=== PATIENT | male | born 1975 | race Caucasian/White ===

== ENCOUNTER 2025-05-19 20:31 | Inpatient (IN) | payer BC, SELFPAY ==
--- NOTE | ~2025-05-19 | CT_ITS ---
CT of the Abdomen and Pelvis: Indication: Abdominal distention Technique: 2.5 mm axial scans were obtained through the abdomen and pelvis following intravenous adm inistration of 100 cc of Omnipaque 350. Dose reduction technique was used on this scan by utilizing a utomated exposure control and iterative reconstruction technique. The dose-length product (DLP) was 1 232.73 mGy-cm. Findings: Scans through the lung bases demonstrate small right pleural effusion and minimal left ple ural effusion. Liver is diffusely nodular in contour, compatible cirrhosis. There is a 2.1 cm hypodense lesion in th e left hepatic lobe. Gallbladder is markedly distended with a few small calcified gallstones present. There is a large amount of more amorphous mildly hyperdense material within the gallbladder lumen, w hich could reflect sludge, hemorrhage, or possibly soft tissue. Spleen is enlarged, measuring 14.8 cm in length. There are extensive varices in the right mid abdomen and about the right kidney. The panc reas, adrenals and kidneys are within normal limits. No evidence of aortic aneurysm. No lymphadenop athy. Extensive large bowel wall thickening is present, possibly related to the presence of ascites. Small to moderate umbilical hernia contains fat and fluid. No bowel obstruction evident. Images through the pelvis were performed. Urinary bladder unremarkable. No pelvic mass seen. Moderate to large abdominopelvic ascites present. Impression: Cirrhotic liver with evidence of portal hypertension including splenomegaly, extensive varices in the right abdomen, and moderate to large amount of abdominopelvic ascites. Small to moderate umbilical hernia containing fat and fluid. 2.1 cm hypodense lesion left hepatic lobe is indeterminate based on this exam. Follow-up MR recommend ed to further assess. Markedly distended gallbladder with small calcified gallstones and larger amount of more amorphous hy perdense material which could reflect gallbladder sludge versus possibly hemorrhage or soft tissue de nsity. This could also be further assessed at. Postcontrast MR. Small right pleural effusion and minimal left pleural effusion. Reviewed, dictated and finalized at location M. Impression: Cirrhotic liver with evidence of portal hypertension including splenomegaly, ex tensive varices in the right abdomen, and moderate to large amount of abdominop elvic ascites. Small to moderate umbilical hernia containing fat and fluid. 2.1 cm hypodense lesion left hepatic lobe is indeterminate based on this exam. Follow-up MR recommended to further assess. Markedly distended gallbladder with small calcified gallstones and larger amoun t of more amorphous hyperdense material which could reflect gallbladder sludge versus possibly hemorrhage or soft tissue density. This could also be further a ssessed at. Postcontrast MR. Small right pleural effusion and minimal left pleural effusion.
--- NOTE | ~2025-05-19 | XR_ITS ---
EXAMINATION: XR chest ET placement Exam Date/Time: 05/20/2025 16:06 CDT HISTORY: ET placement Comparison: CT abdomen pelvis 05/19/2025. RESULT: Lines, tubes, and devices: Endotracheal tube terminating 4.3 cm above the madisyn. Lungs and pleura: Lordotic positioning, with low volumes. Segmental right upper lung and medial left lower lung airspace disease. Small bilateral pleural effusions noted in the prior CT are not radiogr aphically visible. Cardiomediastinal silhouette: Stable. Calcified nodes. Other: No acute osseous or upper abdominal finding. IMPRESSION: Endotracheal tube, 4.3 cm above the madisyn. Segmental right upper lung and left medial lower lung ate lectasis/consolidation. Reviewed, dictated and finalized at location K. IMPRESSION: Endotracheal tube, 4.3 cm above the madiysn. Segmental right upper lung and left medial lower lung atelectasis/consolidation.
[2025-05-19 20:32] VITALS: BP 102/58; PULSE 78; RESP 14; TEMP 37; O2SAT 99
[2025-05-19] MEDS: PANTOPRAZOLE SODIUM IV 40 MG VIAL 80 MG IV PUSH (20:49)
--- OUTSIDE RECORDS SUMMARY | 2025-05-19 20:57 | XMS_ITS | Encounter Summary ---
Author Organization [facility] Address [address] [place] [address] Care Team Providers Care Real Estate Agent Name Role Phone Jane Ruiz MD Primary Care Provider Encounter Details Date Type Department Care Team (Late st Contact Info) Description 05/15/2025 Office Visit External [facility] - Family Medicine [address] [place] [address], [address] [place] [phone] Valarie Garrett RMA Social History Tobacco Use Types Packs/Day Years Used Date Smoking Tobacco: Former Cigarettes Q uit: 2024 Smokeless Tobacco: Former Alcohol Use Standard Drinks/Week Comments Not Currently 0 (1 standard drink = 0.6 oz pur e alcohol) since October 2024 AUDIT-C Answer Date Recorded Q1: How often do you have a drink containing alcohol? Never 04/21/2025 Q2: How many drinks containi ng alcohol do you have on a typical day when you are drinking? Patient does not drink Q3: How often do you have si x or more drinks on one occasion? Never 04/21/2025 Overall Financial Resource Strain (CARDIA) Answe r Date Recorded How hard is it for you to pa y for the very basics like food, housing, medical care, and heating? Not hard at all 04/30/2025 PHQ-2 Answer Date Recorded Patient Health Questionnaire-2 Score 0 03/18/2025 [facility] [place] [facility] Occupat ional Health - Occupational Stress Questionnaire Answer Date Recorded Do you feel stress - tense, restless, nervous, or anxious, or unable to sleep at night because your mind is troubled all the time - these days? Not at all 04/30/2025 Hunger Vital Sign Answer Date Recorded Within the past 12 months, y ou worried that your food would run out before you got the money to buy more. Never true 04/30/20 25 Within the past 12 months, t he food you bought just didn't last and you didn't have money to get more. Never true 04/30/2025 PRAPARE - Transportation Answer Date Re corded In the past 12 months, has l ack of transportation kept you from medical appointments or from getting medications? No 04/08 In the past 12 months, has l ack of transportation kept you from meetings, work, or from getting things needed for daily living? No 04/30/2025 Housing Stability Vital Sign Answer Alireza e Recorded In the last 12 months, was t here a time when you were not able to pay the mortgage or rent on time? No 04/30/2025 In the past 12 months, how m any times have you moved where you were living? 1 04/30/2025 At any time in the past 12 m [facility], were you homeless or living in a care home (including now)? 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 Answer Date of Assessment Author No 04/22/2025 12:56 PM Gail Hooper RN * Is person blind or have serious difficulty seeing? Answer Date of Assessment Author No 04/22/2025 12:56 PM Gail Hooper RN * Does person have serious difficulty walking/climbing stairs? Answer Date of Assessment Author No 04/22/2025 12:56 PM Gail Hooper RN * Does person have difficulty dressing/bathing? Answer Date of Assessment Author No 04/22/2025 12:56 PM Gail Hooper RN * Does person have difficulty doing errands alone? Answer Date of Assessment Author No 04/22/2025 12:56 PM Gail Hooper RN documented as of this encounter Mental Status * Does person have difficulty concentrating/remembering/making decisions? Answer Entry Date Author Yes 04/22/2025 12:56 PM CDT Gail Melendez RN documented in this encounter Plan of Treatment Upcoming Encounters Date Type Department Care Team (Late st Contact Info) Description 05/21/2025 10:30 AM CDT Office Visit [facility] - Nephrology [address] [place] [phone] Sarah Headley MD [address] [place] [address] Margaret Inman MD [address] [place] [address] 06/11/2025 2:30 PM CDT Office Visit [facility] - GI [address] [place] [phone] Deepali Joiner, [employer] CURER [address] [place] [address] [facility] [place] [address] 06/18/2025 3:00 PM CDT Office Visit [facility] - Family Medicine [address] [place] [phone] Jane Ruiz MD [address] [place] [address] documented as of this encounter Goals Goal Patient Goal Type Associated Problems Recent Progress Patient-Stated? Author Medication Management General On track( 025 9:28 AM CDT) Octavia Badillo RN Note: Expected end date: ongoing Interventions: Take all medications as prescribed Let your doctor know right away about any changes in your medications Make sure to request a refill of your medication at least one week prior to your last dose documented as of this encounter Visit Diagnoses Not on filedocumented in this encounter Care Teams Real Estate Agent Relationship Specialty Start Date End Date Jane Ruiz MD [address] [place] [address] PCP - General Internal Medicine 03/20/25 documented as of this encounter
--- OUTSIDE RECORDS SUMMARY | 2025-05-19 20:57 | XMS_ITS | Clinical Summary ---
Author Organization [facility] Address [address] [place] [address] Care Team Providers Care Artificial Breeding Technician Name Role Phone Unavailable Primary Care Provider Unavailabl e Allergies No known active allergies Medications thiamine 100 MG tablet Take 1 tablet (100 mg total) by mouth in the morning. 5 Active spironolactone (ALDACTONE) 25 MG tablet Take 1 tablet (25 mg total) by mouth in the morning. 30 tablet 5 Active sodium chloride (OCEAN) 0.65 % nasal spray Administer 2 sprays into each nostril every 2 (two) hours as needed for congestion. 5 Active multivitamin w/ minerals (THERA M PLUS) Tab/Cap tablet Take 1 each (1 tablet total) by mouth in the morning. 5 Active lactulose 10 GM/15ML solution Take 30 mL (20 g total) by mouth 3 (three) times a day. 946 mL 5 Active acetaminophen (TYLENOL) 500 MG tablet Take 1 tablet (500 mg total) by mouth every 6 (six) hours as needed for mild pain or moderate pain for up to 335 days. 5 026 Active folic acid (FOLVITE) 1 MG tablet Take 1 tablet (1 mg total) by mouth in the morning. 5 Active furosemide (LASIX) 40 MG tablet Take 1 tablet (40 mg total) by mouth in the morning. 30 tablet 5 Active insulin glargine (LANTUS) 100 UNIT/ML solution pen-injector pen-injector Inject 0.16 mL (16 Units total) under the skin every morning. 15 mL 5 Active insulin aspart (NovoLOG) 100 UNIT/ML solution pen-injector Inject 0.08 mL (8 Units total) under the skin in the morning and 0.08 mL (8 Units total) at noon and 0.08 mL (8 Units total) in the evening. Inject with meals. 3 mL 5 Active glucometer 1 each as directed (Test before all meals/snacks and before bedtime.). 1 each 5 Active glucose blood test strip as directed (Test before all meals/snacks and before bedtime.). 100 each 5 Active lancets as directed (Test before all meals/snacks and before bedtime.). 100 each 5 Active alcohol swabs 70 % as directed (Test before all meals/snacks and before bedtime.). 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 180 tablet 5 Active Active Problems Problem Noted Date Diagnosed Date Alcoholic cirrhosis of liver with ascites 2024 Debility 01/14/2025 Anemia of chronic disease 12/28/2024 Type 2 diabetes mellitus without complication Hepatic encephalopathy 12/28/2024 Resolved Problems Problem Noted Date Diagnosed Date Resolved Date Liver disease 01/15/2025 01/15/2025 Social History Tobacco Use Types Packs/Day Years Used Date Smoking Tobacco: Never Smokeless Tobacco: Former Quit: 11/07/2024 Tobacco Cessation:Counseling Given: No Alcohol Use Standard Drinks/Week Comments Yes 32 (1 standard drink = 0.6 oz pu re alcohol) [facility] Utilities Answer Date Recorded In the past 12 months has [employer], [employer], oil, or water [employer] threatened to shut off services in your home? Patient declined 01/15/2025 Social Connection and Isolation Panel [NHANES] A nswer Date Recorded In a typical week, how many times do you talk on the phone with family, friends, or neighbors? Patient declined 01/15/2025 How often do you get togethe r with friends or relatives? Patient declined 01/15/2025 How often do you attend orthodoxy or spiritism serv ices? Patient declined 01/15/2025 Do you belong to any clubs o r organizations such as orthodoxy groups, unions, fraternal or athletic groups, or school groups? Patient declined 01/15/2025 How often do you attend meet ings of the clubs or organizations you belong to? Patient declined 01/15/2025 Are you , , di vorced, , never , or living with a partner? Never 01/15/2025 Overall Financial Resource Strain (CARDIA) Answe r Date Recorded How hard is it for you to pa y for the very basics like food, housing, medical care, and heating? Patient declined 01/15/2025 [facility] Occupat ional Health - Occupational Stress Questionnaire Answer Date Recorded Do you feel stress - tense, restless, nervous, or anxious, or unable to sleep at night because your mind is troubled all the time - these days? Only a little 01/28/2025 Hunger Vital Sign Answer Date Recorded Within the past 12 months, y ou worried that your food would run out before you got the money to buy more. Patient declined Within the past 12 months, t he food you bought just didn't last and you didn't have money to get more. Patient declined 09/2025 Housing Stability Vital Sign Answer Alireza e Recorded In the last 12 months, was t here a time when you were not able to pay the mortgage or rent on time? Patient declined 01/16/20 25 In the past 12 months, how m any times have you moved where you were living? 0 01/15/2025 At any time in the past 12 m [facility], were you homeless or living in a [facility] (including now)? Patient declined 01/15/2025 Domestic Abuse Assessment Answer Date R ecorded Do you feel safe in your relationships at home? Yes 01/14/2025 Physical Abuse Denies 01/14/2025 HRSN Domestic Abuse - Type of Abuse Not on file 01/14/2025 HRSN Domestic Abuse - Time Frame Not on file 01/14/2025 HRSN Domestic Abuse - Signs and Symptoms Not on file 01/14/2025 Verbal Abuse Denies 01/14/2025 HRSN Domestic Abuse - Reported To Not on file 01/14/2025 SDOH Transportation Source Answer Da te Recorded Has lack of transportation k ept you from medical appointments or from getting medications? No 01/28/2025 Has lack of transportation k ept you from meetings, work, or from getting things needed for daily living? No 01/28/2025 HRSN Depression PHQ-2 Answer Date Recor ded Feeling down, depressed, or hopeless 0 01/28/2025 Little interest or pleasure in doing things 0 01/28/2025 Sex and Gender Information Value Date Recorded Sex Assigned at Not on file Legal Sex Male 4:21 PM EDT Gender Identity Not on file Sexual Orientation Not on file Last Filed Vital Signs Vital Sign Reading Time Taken Comments Blood Pressure 117/71 01/28/2025 7:17 AM CDT Pulse 87 01/28/2025 7:17 AM CDT Temperature 36.9 C (98.4 F) 01/28/2025 7:17 AM CDT Respiratory Rate 18 01/28/2025 7:17 AM CDT Oxygen Saturation 96% 01/28/2025 7:17 AM CDT Inhaled Oxygen Concentration - - Weight 90.7 kg (200 lb) 01/28/2025 11:58 AM CDT Height 175.3 cm (5' 9) 01/21/2025 3:38 PM CDT Body Mass Index 29.53 01/21/2025 3:38 PM CDT Plan of Treatment Not on file Advance Directives * Full Resuscitation (Latest Code Status on File) Date Activated Date Inactivated Comments 01/14/2025 7:16 PM 01/28/2025 6:19 PM Question Answer Comments I have discussed this order with the patient or his/her surrogate and have received informed consent. Yes
--- OUTSIDE RECORDS SUMMARY | 2025-05-19 20:58 | XMS_ITS | Clinical Summary ---
Author Organization [facility] Address [address] [facility] [place] [address] Care Team Providers Care Senior Analyst Market Intelligence Name Role Phone Jane Ruiz MD Primary Care Provider Source Comments [facility],non-owned Affiliates and Associated Physician Practices is amultiple site organization consisting of ambulatory clinics and hospital sitesin [place], [place], [place] and [place]. This disclosure is being madepursuant to the Care Everywhere program and may not contain all information available regarding this patient. Last updated 18.[facility] Allergies No known active allergies Medications * Be aware that medications may not be up to date on this document. Alwaysverify current medications with the patient. multiple vitamins with minerals tablet Take 1 (one) tablet by mouth once daily 025 Active Alcohol Swabs 70 % use as directed to test before all meals/snacks and before bedtime 100 Each 5 12:48 PM CDT 025 Active Blood Glucose Monitoring Suppl (blood glucose meter) use as directed to test blood glucose 1 Each 5 12:48 PM CDT 025 Active Glucose Blood (BLOOD GLUCOSE TEST STRIPS) STRP Test as directed before all meals/snacks and before bedtime 100 Each 5 12:48 PM CDT 025 Active lancets Test as directed before all meals/snacks and before bedtime. 100 Each 5 12:48 PM CDT 025 Active sulfamethoxaz ole-trimethop rim (Bactrim DS; Septra DS) 800-160 MG tablet Take 1 (one) tablet by mouth once daily for SBP prophylaxis 90 tablet 3 025 Active spironolacton e (Aldactone) 100 MG tablet Take 1 (one) tablet by mouth once daily 90 tablet 3 025 2025 Active Insulin Glargine Solostar 100 UNIT/ML SOPNIndicatio ns:Type 2 diabetes mellitus without complication, without long-term current use of insulin (HCC) Inject 16 Units subcutaneously every morning 15 mL 2 025 Active insulin aspart (NovoLOG) FlexPen Inject 8 (eight) Units subcutaneously 3 times daily with meals 15 mL 2 025 Active Insulin Pen Needle (Pen [place]) 33G X 4 MM MISCIndicatio ns:Type 2 diabetes mellitus without complication, without long-term current use of insulin ([facility]) Use 1 Each 4 times daily 300 Each 3 025 Active thiamine (Vitamin B-1) 100 MG tablet Take 1 (one) tablet by mouth once daily 30 tablet 025 Active furosemide (Lasix) 40 MG tablet Take 1 (one) tablet by mouth every morning 30 tablet 025 Active carvedilol (Coreg) 3.125 MG tablet Take 1 (one) tablet by mouth 2 times daily with morning and evening meal Active lactulose (Chronulac) 10 GM/15ML solution Take 30 mL by mouth 4 times daily 025 Active melatonin 3 MG tablet Take 1 (one) tablet by mouth at bedtime Active pantoprazole (Protonix) 40 MG injection 10 mL by Intravenous route 2 times daily 025 Active rifAXIMin (Xifaxan) 550 MG tablet Take 1 (one) tablet by mouth 2 times daily 025 Active rifAXIMin (Xifaxan) 550 MG tablet Take 1 (one) tablet by mouth 2 times daily 180 tablet 3 5 2:45 PM CDT 025 2024 Discontinued(L ist Clean-Up) rifAXIMin (Xifaxan) 550 MG tablet Take 1 (one) tablet by mouth 2 times daily 180 tablet 3 025 2024 Discontinued lactulose (Chronulac) 10 GM/15ML solution Take 30 mL by mouth 3 times daily 946 mL 5 025 2024 Discontinued Active Problems Problem Noted Date Diagnosed Date Hypernatremia 05/09/2025 Esophageal varices with bleeding 05/05/2025 Secondary esophageal varices with bleeding 05/05 Hemorrhagic shock 05/05/2025 Acute hypoxic respiratory failure 05/05/2025 Acute blood loss anemia 05/05/2025 Lactic acidosis 05/05/2025 Hepatocellular carcinoma 05/05/2025 Ascites due to alcoholic cirrhosis 05/05/2025 Metabolic acidosis 05/05/2025 Hypocalcemia 05/05/2025 Hyperglycemia 05/05/2025 Periapical abscess without sinus 05/05/2025 Acute encephalopathy 04/20/2025 Alcoholic cirrhosis of liver with ascites 2024 Debility 01/14/2025 Hyponatremia 12/28/2024 Sepsis with encephalopathy 12/28/2024 ELLA (acute kidney injury) 12/28/2024 Hepatic encephalopathy 12/28/2024 Hyperkalemia 12/28/2024 Type 2 diabetes mellitus wit hout complication, without long-term current use of insulin 12/28/2024 Anemia of chronic disease 12/28/2024 Thrombocytopenia 12/28/2024 Decompensated hepatic cirrhosis 12/27/2024 SBP (spontaneous bacterial peritonitis) 12/27/19 Encounters Date Type Department Care Team Description 05/17/2025 Telephone [facility] - GI [address] [facility], [place] [phone] Wagner Latif, RN Follow-up 05/15/2025 Office Visit External [facility] - Family Medicine [address] [place] [address], [address] [place] [address] Valarie Garrett RMA 05/15/2025 Results Follow-Up [facility] ACUTE [address] [place] [phone] Lauryn Brooks 05/05/2025 12:32 PM CDT - 05/05/2025 1:02 PM CDT Surgery [facility] ENDOSCOPY [address] [place] [address] Sherrie Gay DO ESOPHAGOGASTRODUODENOSCOPY (EGD) DIAGNOSTIC 04/30/2025 3:00 PM CDT - 04/30/2025 3:30 PM CDT Surgery [facility] ENDOSCOPY [address] [place] [address] Yasmeen Canales MD Flex Sig 04/30/2025 2:23 PM CDT Anesthesia Event [facility] ENDOS[facility] [address] [place] [address] Prerna Desai MD Buchheit, Rachel E, MANUFACTURING APPLICATIONS ENGINEER-CLAIMS TECHNICIAN 04/26/2025 Orders Only [facility] - Hematology/Onco [facility]y [address] [place] [address] Talib Pettit DO 04/25/2025 Orders Only [facility] - Hematology/Onco logy [address] [place] [address] Talib Pettit DO Malignant neoplasm of liver, unspecified liver malignancy type (HCC) 04/21/2025 11:12 PM CDT - 05/15/2025 6:45 PM CDT Hospital Encounter [facility] ACUTE [address] [place] [address] Alexi Mendez MD Syn, Wing-Kin, MD Befeler, Alex S, MD Ferguson, Keith T, MD Espiritu, Joseph R, MD Gastroenterology Discharge Disposition: Nursing Facility:Medicaid 04/21/2025 Travel 04/20/2025 Telephone [facility] - GI [address] [facility], [place] [address] Douglas Roberts MD Altered mental status 04/10/2025 Refill [facility] [address] [facility], [address] [place] [phone] Jane Cloud MD MEDICATION REFILL 03/28/2025 Refill [facility] [address] [facility], [address] [place] [address] Jane Cloud MD Refill Request 03/21/2025 8:25 AM CDT - 03/21/2025 8:40 AM CDT Surgery [facility] END[facility] [address] [place] [address] Lillie Amos PA-C PARACENTESIS ABDOMEN (PERCUTANEOUS)--mtm?--recheck labs 03/21/2025 8:20 AM CDT - 03/21/2025 12:04 PM CDT Hospital Encounter [facility] OP [address] [place] [address] Lillie Amos PA-C Surgery General Discharge Disposition: Home or Self Care 03/21/2025 Travel 03/20/2025 Refill [facility] [address] [facility], [address] [place] [address] Jane Cloud MD MEDICATION REFILL 03/18/2025 10:20 AM CDT Office Visit [facility] [address] [facility], [address] [phone] Jane Cloud MD Type 2 diabetes mellitus without complication, with long-term current use of insulin (HCC) (Primary Dx); Alcoholic cirrhosis of liver with ascites (HCC); Anemia of chronic disease; Thrombocytopenia; Type 2 diabetes mellitus without complication, without long-term current use of insulin (HCC) 03/18/2025 Travel 03/08/2025 10:39 AM CDT - 03/08/2025 11:59 PM CDT Hospital Encounter [facility] OP DRAW STATION [address] [place] [address] Discharge Disposition: Home or Self Care 03/08/2025 8:00 AM CDT Office Visit [facility] - GI [address] [facility], [place] [address] Will Mckenzie MD Decompensated hepatic cirrhosis (HCC) (Primary Dx); SBP (spontaneous bacterial peritonitis) (HCC) 03/08/2025 Results Follow-Up [facility] - GI [address] [facility], [place] [address] Will Mckenzie MD 03/08/2025 Travel 02/28/2025 Orders Only [facility] - Internal Med [address] [facility], [place] [address] Guido Headley MD 02/26/2025 Orders Only Transitional Care at [address] [address] Guido Headley MD 02/26/2025 Telephone Transitional Care at [address] [address] Loni Cook MA Question from Last 3 Months Family History Medical History Relation Name Comments Other - Cardiac Father Other - Cardiac Maternal Grandfather Diabetes - Type 2 Maternal Grandmother Diabetes - Type 2 Mother Other - Cardiac Paternal Grandfather Cancer Paternal Grandmother Cancer - Pancreatic Paternal Grandmother Cancer - Skin, Melanoma Paternal Grandmother Relation Name Status Comments Father Maternal Grandfather Maternal Grandmother Alive Mother Alive Paternal Grandfather Paternal Grandmother Social History Tobacco Use Types Packs/Day Years Used Date Smoking Tobacco: Former Cigarettes Q uit: 2024 Smokeless Tobacco: Former Tobacco Cessation:Counseling Given: No Alcohol Use Standard Drinks/Week Comments Not Currently [...] Recorded Patient Health Questionnaire-2 Score 0 03/18/2025 [facility] of Occupat ional Health - Occupational Stress [...] any time in the past 12 [facility], were you homeless or living in a [facility] (including now)? No 04/30/2025 Sex and Gender Information Value Date Recorded Sex Assigned at Not on file Legal Sex Male 3:36 AM SLIP MIXER Gender Identity Not on file Sexual Orientation Not on file Last Filed Vital Signs Vital Sign Reading Time Taken Comments Blood Pressure 97/66 05/15/2025 2:41 PM CDT Pulse 71 05/15/2025 2:41 PM CDT Temperature 37.2 C (98.9 F) 05/15/2025 2:41 PM CDT Respiratory Rate 18 05/15/2025 2:47 AM CDT Oxygen Saturation 95% 05/15/2025 2:47 AM CDT Inhaled Oxygen Concentration 30% 05/10/2025 9 :34 AM CDT Weight 76.9 kg (169 lb 8.5 oz) 05/11/2025 3:00 A M CDT Height 175.3 cm (5' 9) 04/21/2025 11:38 PM CDT Body Mass Index 25.04 04/21/2025 11:38 PM CDT Plan of Treatment Upcoming Encounters Date Type Department Care Team (Late st Contact Info) Description 05/21/2025 10:30 AM CDT Office Visit [facility] - Nephrology [address] [place] [phone] Sarah Headley MD [address] [place] [address] Margaret Inman MD [address] [place] [address] 06/11/2025 2:30 PM CDT Office Visit [facility] - GI [address] [place] [phone] Deepali Joiner, MANUFACTURING APPLICATIONS ENGINEER-CAMPUS DIRECTOR [address] [place] [address] [address] [place] [address] 06/18/2025 3:00 PM CDT Office Visit [facility] - Family Medicine [address] [phone] Jane Ruiz MD [address] [place], [place] [phone] Health Maintenance Due Date Last Done Comments COLOGUARD (AGES 45-75) - COLON CA SCREENING 1974 COLON MONITORING 1974 COLONOSCOPY - COLON CA SCREENING 1974 CT COLONOGRAPHY - COLON CA SCREENING 1974 Colorectal Cancer Screening 1974 FIT - COLON CA SCREENING 1974 FLEX SIG - COLON CA SCREENING 1974 DTAP/TDAP/TD VACCINES (1 - Tdap) 1993 HEPATITIS B VACCINE (1 of 3 - 19+ 3-dose series) 1993 PNEUMOCOCCAL VACCINE 50+ (1 of 2 - PCV) 1993 DIABETES-STATIN 2014 ZOSTER VACCINE (1 of 2) 2024 COVID-19 VACCINE ( season) 2024 DIABETES - URINE PROTEIN SCREENING 11/07/2024 DIABETES RETINOPATHY SCREENING 12/28/2024 INFLUENZA VACCINE (#1) 2025 DIABETES-HGB A1C 09/18/2025 03/18/2025, , 12/28/2024, Additional history exists DIABETES-FOOT EXAM WITH MONOFILAMENT 03/18/2026 03/18/2025 DIABETES-SERUM CREATININE 05/15/20262024, 05/14/2025, 05/14/2025, Additional history exists HEPATITIS C SCREENING Completed 12/29/2024 HIV SCREENING Completed 01/02/2025 DEPRESSION SCREENING Completed 03/18/2025 HIB VACCINE Aged Out No longer eligi ble based on patient's age to complete this topic HPV VACCINE Aged Out No longer eligi ble based on patient's age to complete this topic MENINGOCOCCAL (Group B) VACCINE SHARED DECISION-MAKING Aged Out No longer eligible based on patient's age to complete this topic MENINGOCOCCAL GROUPS A/C/Y/W VACCINE Aged Out No longer eligible based on patient's age to complete this topic Goals Goal Patient Goal Type Associated Problems Recent Progress Patient-Stated? Author Medication Management General On track( 9:28 AM CDT) Octavia Badillo, RN Note: Expected end date: ongoing Interventions: Take all medications as prescribed Let your doctor know right away about any changes in your medications Make sure to request a refill of your medication at least one week prior to your last dose Procedures Procedure Name Priority Date/Time Associated Diagnosis Comments GLUCOSE - POINT OF CARE Routine 05/15/20 4:42 PM CDT TYPE + SCREEN PANEL STAT 05/15/2025 2:57 PM CDT PREPARE RBC LEUKOREDUCED UNIT Routine 05/15/2025 2:57 PM CDT GLUCOSE - POINT OF CARE Routine 05/15/20 12:05 PM CDT GLUCOSE - POINT OF CARE Routine 05/15/20 7:57 AM CDT CBC W/O DIFFERENTIAL AM Draw 05/15/2025 3:13 AM CDT PT-[facility]R [facility] AM Draw 05/15/2025 3:12 AM CDT MAGNESIUM BLOOD AM Draw 05/15/2025 2:34 AM CDT PHOSPHORUS BLOOD AM Draw 05/15/2025 2:34 AM CDT CALCIUM IONIZED WHOLE BLOOD Timed 05/15/2025 2:34 AM CDT COMPREHENSIVE METABOLIC PANEL AM Draw 05/15/2025 2:34 AM CDT GLUCOSE - POINT OF CARE Routine 05/14/20 8:49 PM CDT BASIC METABOLIC PANEL (CALCIUM TOTAL) Routine 05/14/2025 5:59 PM CDT GLUCOSE - POINT OF CARE Routine 05/14/20 5:52 PM CDT CK BLOOD Routine 05/14/2025 1:12 PM CDT GLUCOSE - POINT OF CARE Routine 05/14/20 12:[address] HEAD WO CONTRAST STAT 05/14/2025 9:27 AM CDT Fall, initial encounter GLUCOSE - POINT OF CARE Routine 05/14/20 8:48 AM CDT AMMONIA Routine 05/14/2025 2:43 AM CDT MAGNESIUM BLOOD AM Draw 05/14/2025 2:43 AM CDT CBC W/O DIFFERENTIAL AM Draw 05/14/2025 2:43 AM CDT PHOSPHORUS BLOOD AM Draw 05/14/2025 2:43 AM CDT CALCIUM IONIZED WHOLE BLOOD Timed 05/14/2025 2:43 AM CDT COMPREHENSIVE METABOLIC PANEL AM Draw 05/14/2025 2:43 AM CDT PT-INR [facility] AM Draw 05/14/2025 2:43 AM CDT GLUCOSE - POINT OF CARE Routine 05/13/20 8:33 PM CDT BASIC METABOLIC PANEL (CALCIUM TOTAL) Routine 05/13/2025 5:23 PM CDT GLUCOSE - POINT OF CARE Routine 05/13/20 4:11 PM CDT GLUCOSE - POINT OF CARE Routine 05/13/20 11:20 AM CDT GLUCOSE - POINT OF CARE Routine 05/13/20 8:27 AM CDT MAGNESIUM BLOOD AM Draw 05/13/2025 3:27 AM CDT CBC W/O DIFFERENTIAL AM Draw 05/13/2025 3:27 AM CDT PHOSPHORUS BLOOD AM Draw 05/13/2025 3:27 AM CDT CALCIUM IONIZED WHOLE BLOOD Timed 05/13/2025 3:27 AM CDT COMPREHENSIVE METABOLIC PANEL AM Draw 05/13/2025 3:27 AM CDT PT-INR [facility] AM Draw 05/13/2025 3:27 AM CDT GLUCOSE - POINT OF CARE Routine 05/12/20 8:38 PM CDT GLUCOSE - POINT OF CARE Routine 05/12/20 5:09 PM CDT BASIC METABOLIC PANEL (CALCIUM TOTAL) Timed 05/12/2025 2:49 PM CDT GLUCOSE - POINT OF CARE Routine 05/12/20 11:24 AM CDT GLUCOSE - POINT OF CARE Routine 05/12/20 8:32 AM CDT MAGNESIUM BLOOD AM Draw 05/12/2025 3:58 AM CDT CBC W/O DIFFERENTIAL AM Draw 05/12/2025 3:58 AM CDT PHOSPHORUS BLOOD AM Draw 05/12/2025 3:58 AM CDT CALCIUM IONIZED WHOLE BLOOD Timed 05/12/2025 3:58 AM CDT COMPREHENSIVE METABOLIC PANEL AM Draw 05/12/2025 3:58 AM CDT PT-INR [facility] AM Draw 05/12/2025 3:58 AM CDT HGB HCT PANEL Routine 05/11/2025 9:57 PM CDT BASIC METABOLIC PANEL (CALCIUM TOTAL) Routine 05/11/2025 9:57 PM CDT GLUCOSE - POINT OF CARE Routine 05/11/20 4:26 PM CDT CBC W AUTO DIFFERENTIAL Routine 05/11/20 1:29 PM CDT Acute encephalopathy Decompensated hepatic cirrhosis (HCC) Hepatocellular carcinoma (HCC) Nausea and vomiting, unspecified vomiting type Intestinal obstruction, unspecified cause, unspecified whether partial or complete (HCC) Hemorrhagic shock (HCC) Ascites due to alcoholic cirrhosis (HCC) Secondary esophageal varices with bleeding (HCC) Periapical abscess without sinus Metabolic acidosis Acute hypoxic respiratory failure (HCC) Alcoholic cirrhosis of liver with ascites (HCC) Type 2 diabetes mellitus without complication, without long-term current use of insulin (HCC) ELLA (acute kidney injury) SBP (spontaneous bacterial peritonitis) (HCC) Hyperkalemia Thrombocytopenia Lactic acidosis Hyperglycemia Hypernatremia Hypocalcemia Acute blood loss anemia Debility Anemia of chronic disease Hepatic encephalopathy (HCC) Hyponatremia RENAL FUNCTION PANEL Routine 05/11/2025 1:29 PM CDT GLUCOSE - POINT OF CARE Routine 05/11/20 12:22 PM CDT TRANSFUSE RED BLOOD CELL LEUKOREDUCED UNIT(S) Routine 05/11/2025 10:38 AM CDT GLUCOSE - POINT OF CARE Routine 05/11/20 9:36 AM CDT TYPE + SCREEN PANEL Routine 05/11/2025 8:30 AM CDT PREPARE RBC LEUKOREDUCED UNIT Routine 05/11/2025 8:30 AM CDT IRON + TRANSFERRIN PANEL Routine 05/11/2025 5:48 AM CDT FERRITIN Routine 05/11/2025 5:48 AM CDT FOLATE Routine 05/11/2025 5:48 AM CDT VITAMIN B12 AM Draw 05/11/2025 5:48 AM CDT METHYLMALONIC ACID BLOOD AM Draw 05/11/2025 5:48 AM CDT MAGNESIUM BLOOD AM Draw 05/11/2025 5:48 AM CDT CBC W/O DIFFERENTIAL AM Draw 05/11/2025 5:48 AM CDT PHOSPHORUS BLOOD AM Draw 05/11/2025 5:48 AM CDT CALCIUM IONIZED WHOLE BLOOD Timed 05/11/2025 5:48 AM CDT COMPREHENSIVE METABOLIC PANEL AM Draw 05/11/2025 5:48 AM CDT PT-INR [facility] AM Draw 05/11/2025 5:48 AM CDT GLUCOSE - POINT OF CARE Routine 05/11/20 5:13 AM CDT GLUCOSE - POINT OF CARE Routine 05/11/20 1:04 AM CDT BASIC METABOLIC PANEL (CALCIUM TOTAL) Routine 05/10/2025 9:38 PM CDT GLUCOSE - POINT OF CARE Routine 05/10/20 8:58 PM CDT LYTES (NA K CL) URINE RANDOM PANEL Routine 05/10/2025 6:33 PM CDT RENAL FUNCTION PANEL Routine 05/10/2025 4:12 PM CDT GLUCOSE - POINT OF CARE Routine 05/10/20 4:10 PM CDT BASIC METABOLIC PANEL (CALCIUM TOTAL) Routine 05/10/2025 11:34 AM CDT GLUCOSE - POINT OF CARE Routine 05/10/20 11:32 AM CDT GLUCOSE - POINT OF CARE Routine 05/10/20 8:25 AM CDT CBC W/O DIFFERENTIAL AM Draw 05/10/2025 5:21 AM CDT PT-INR [facility] AM Draw 05/10/2025 5:07 AM CDT GLUCOSE - POINT OF CARE Routine 05/10/20 4:11 AM CDT MAGNESIUM BLOOD AM Draw 05/10/2025 4:00 AM CDT PHOSPHORUS BLOOD AM Draw 05/10/2025 4:00 AM CDT CALCIUM IONIZED WHOLE BLOOD Timed 05/10/2025 4:00 AM CDT COMPREHENSIVE METABOLIC PANEL AM Draw 05/10/2025 4:00 AM CDT GLUCOSE - POINT OF CARE Routine 05/09/20 11:03 PM CDT GLUCOSE - POINT OF CARE Routine 05/09/20 7:30 PM CDT RENAL FUNCTION PANEL Routine 05/09/2025 3:38 PM CDT GLUCOSE - POINT OF CARE Routine 05/09/20 3:36 PM CDT GLUCOSE - POINT OF CARE Routine 05/09/20 12:01 PM CDT GLUCOSE - POINT OF CARE Routine 05/09/20 7:35 AM CDT GLUCOSE - POINT OF CARE Routine 05/09/20 3:20 AM CDT MAGNESIUM BLOOD AM Draw 05/09/2025 1:01 AM CDT CBC W/O DIFFERENTIAL AM Draw 05/09/2025 1:01 AM CDT PHOSPHORUS BLOOD AM Draw 05/09/2025 1:01 AM CDT CALCIUM IONIZED WHOLE BLOOD Timed 05/09/2025 1:01 AM CDT COMPREHENSIVE METABOLIC PANEL AM Draw 05/09/2025 1:01 AM CDT PT-INR [facility] AM Draw 05/09/2025 1:01 AM CDT GLUCOSE - POINT OF CARE Routine 05/09/20 12:39 AM CDT GLUCOSE - POINT OF CARE Routine 05/08/20 7:54 PM CDT GLUCOSE - POINT OF CARE Routine 05/08/20 3:53 PM CDT BLOOD GASES ART + COOX PANEL Timed 05/08/2025 11:57 AM CDT RENAL FUNCTION PANEL Routine 05/08/2025 11:57 AM CDT GLUCOSE - POINT OF CARE Routine 05/08/20 11:56 AM CDT BLOOD GASES ART + COOX PANEL Timed 05/08/2025 10:38 AM CDT GLUCOSE - POINT OF CARE Routine 05/08/20 7:53 AM CDT LACTIC ACID BLOOD Timed 05/08/2025 3:59 AM CDT MAGNESIUM BLOOD Timed 05/08/2025 3:59 AM CDT RENAL FUNCTION PANEL Timed 05/08/2025 3:59 AM CDT CALCIUM IONIZED WHOLE BLOOD Timed 05/08/2025 3:59 AM CDT BLOOD GASES ART + COOX PANEL Timed 05/08/2025 3:59 AM CDT CBC W/O DIFFERENTIAL Timed 05/08/2025 3:59 AM CDT GLUCOSE - POINT OF CARE Routine 05/08/20 12:38 AM CDT COMPREHENSIVE METABOLIC PANEL AM Draw 05/07/2025 10:06 PM CDT PT-INR [facility] AM Draw 05/07/2025 10:06 PM CDT LACTIC ACID BLOOD Timed 05/07/2025 10:06 PM CDT MAGNESIUM BLOOD Timed 05/07/2025 10:06 PM CDT RENAL FUNCTION PANEL Timed 05/07/2025 10:06 PM CDT CALCIUM IONIZED WHOLE BLOOD Timed 05/07/2025 10:06 PM CDT BLOOD GASES ART + COOX PANEL Timed 05/07/2025 10:06 PM CDT CBC W/O DIFFERENTIAL Timed 05/07/2025 10:06 PM CDT GLUCOSE - POINT OF CARE Routine 05/07/20 7:55 PM CDT BLOOD GASES ART + COOX PANEL Timed 05/07/2025 6:09 PM CDT XR ABDOMEN KUB PORTABLE STAT 05/07/20 5:45 PM CDT Decompensated hepatic cirrhosis (HCC) LACTIC ACID BLOOD Timed 05/07/2025 4:10 PM CDT MAGNESIUM BLOOD Timed 05/07/2025 4:10 PM CDT RENAL FUNCTION PANEL Timed 05/07/2025 4:10 PM CDT CALCIUM IONIZED WHOLE BLOOD Timed 05/07/2025 4:10 PM CDT BLOOD GASES ART + COOX PANEL Timed 05/07/2025 4:10 PM CDT CBC W/O DIFFERENTIAL Timed 05/07/2025 4:10 PM CDT GLUCOSE - POINT OF CARE Routine 05/07/20 4:08 PM CDT GLUCOSE - POINT OF CARE Routine 05/07/20 11:50 AM CDT LACTIC ACID BLOOD Timed 05/07/2025 10:27 AM CDT MAGNESIUM BLOOD Timed 05/07/2025 10:27 AM CDT RENAL FUNCTION PANEL Timed 05/07/2025 10:27 AM CDT CALCIUM IONIZED WHOLE BLOOD Timed 05/07/2025 10:27 AM CDT BLOOD GASES ART + COOX PANEL Timed 05/07/2025 10:27 AM CDT CBC W/O DIFFERENTIAL Timed 05/07/2025 10:27 AM CDT GLUCOSE - POINT OF CARE Routine 05/07/20 7:49 AM CDT TEG 6 GLOBAL HEMOSTASIS W/ LYSIS AM Draw 05/07/2025 6:15 AM CDT MAGNESIUM BLOOD Timed 05/07/2025 5:08 AM CDT RENAL FUNCTION PANEL Timed 05/07/2025 5:08 AM CDT CALCIUM IONIZED WHOLE BLOOD Timed 05/07/2025 5:08 AM CDT LACTIC ACID BLOOD Timed 05/07/2025 5:08 AM CDT BLOOD GASES ART + COOX PANEL Timed 05/07/2025 5:08 AM CDT CBC W/O DIFFERENTIAL Timed 05/07/2025 5:08 AM CDT TRIGLYCERIDES BLOOD AM Draw 05/07/2025 5:08 AM CDT COMPREHENSIVE METABOLIC PANEL AM Draw 05/07/2025 5:08 AM CDT PT-INR [facility] AM Draw 05/07/2025 5:08 AM CDT GLUCOSE - POINT OF CARE Routine 05/07/20 5:05 AM CDT GLUCOSE - POINT OF CARE Routine 05/07/20 1:15 AM CDT MAGNESIUM BLOOD Timed 05/06/2025 9:40 PM CDT RENAL FUNCTION PANEL Timed 05/06/2025 9:40 PM CDT CALCIUM IONIZED WHOLE BLOOD Timed 05/06/2025 9:40 PM CDT LACTIC ACID BLOOD Timed 05/06/2025 9:40 PM CDT BLOOD GASES ART + COOX PANEL Timed 05/06/2025 9:40 PM CDT CBC W/O DIFFERENTIAL Timed 05/06/2025 9:40 PM CDT GLUCOSE - POINT OF CARE Routine 05/06/20 8:05 PM CDT MAGNESIUM BLOOD Timed 05/06/2025 3:00 PM CDT RENAL FUNCTION PANEL Timed 05/06/2025 3:00 PM CDT CALCIUM IONIZED WHOLE BLOOD Timed 05/06/2025 3:00 PM CDT LACTIC ACID BLOOD Timed 05/06/2025 3:00 PM CDT BLOOD GASES ART + COOX PANEL Timed 05/06/2025 3:00 PM CDT CBC W/O DIFFERENTIAL Timed 05/06/2025 3:00 PM CDT GLUCOSE - POINT OF CARE Routine 05/06/20 25 12:40 PM CDT MAGNESIUM BLOOD Timed 05/06/2025 9:45 AM CDT RENAL FUNCTION PANEL Timed 05/06/2025 9:45 AM CDT CALCIUM IONIZED WHOLE BLOOD Timed 05/06/2025 9:45 AM CDT LACTIC ACID BLOOD Timed 05/06/2025 9:45 AM CDT BLOOD GASES ART + COOX PANEL Timed 05/06/2025 9:45 AM CDT CBC W/O DIFFERENTIAL Timed 05/06/2025 9:45 AM CDT ECHO COMPLETE W CONTRAST STAT 05/06/2025 7:53 AM CDT Hemorrhagic shock (HCC) GLUCOSE - POINT OF CARE Routine 05/06/20 6:40 AM CDT MAGNESIUM BLOOD Timed 05/06/2025 4:14 AM CDT RENAL FUNCTION PANEL Timed 05/06/2025 4:14 AM CDT CALCIUM IONIZED WHOLE BLOOD Timed 05/06/2025 4:14 AM CDT LACTIC ACID BLOOD Timed 05/06/2025 4:14 AM CDT BLOOD GASES ART + COOX PANEL Timed 05/06/2025 4:14 AM CDT CBC W/O DIFFERENTIAL Timed 05/06/2025 4:14 AM CDT GLUCOSE - POINT OF CARE Routine 05/06/20 4:10 AM CDT LACTIC ACID BLOOD Timed 05/05/2025 11:33 PM CDT COMPREHENSIVE METABOLIC PANEL AM Draw 05/05/2025 11:32 PM CDT PT-INR [facility] AM Draw 05/05/2025 11:32 PM CDT MAGNESIUM BLOOD Timed 05/05/2025 11:32 PM CDT TEG 6 GLOBAL HEMOSTASIS W/ LYSIS Timed 05/05/2025 11:32 PM CDT RENAL FUNCTION PANEL Timed 05/05/2025 11:32 PM CDT CALCIUM IONIZED WHOLE BLOOD Timed 05/05/2025 11:32 PM CDT BLOOD GASES ART + COOX PANEL Timed 05/05/2025 11:32 PM CDT CBC W/O DIFFERENTIAL Timed 05/05/2025 11:32 PM CDT GLUCOSE - POINT OF CARE Routine 05/05/20 8:19 PM CDT BLOOD GASES ART + COOX PANEL Timed 05/05/2025 6:55 PM CDT BLOOD GAS+COOX+ELECTROLYTES+M ETAB ARTERIAL STAT 05/05/2025 4:24 PM CDT CBC W/O DIFFERENTIAL Routine 05/05/2025 4:24 PM CDT HGB HCT PANEL STAT 05/05/2025 3:17 PM CDT RENAL FUNCTION PANEL STAT 05/05/2025 3:17 PM CDT TEG 6 GLOBAL HEMOSTASIS W/ LYSIS STAT 05/05/2025 3:17 PM CDT BLOOD GAS+COOX+ELECTROLYTES+M ETAB ARTERIAL STAT 05/05/2025 3:08 PM CDT XR CHEST 1VW PORTABLE STAT 05/05/2025 3:00 PM CDT Acute encephalopathy EGD Routine 05/05/2025 2:51 PM CDT MS ED EGD FLEX TRANSORAL DX 05/05/2025 1:34 PM CDT Gastrointestinal hemorrhage, unspecified gastrointestinal hemorrhage type PT-INR [facility] Routine 05/05/2025 12:45 PM CDT BASIC METABOLIC PANEL (CALCIUM TOTAL) Routine 05/05/2025 12:45 PM CDT CBC W/O DIFFERENTIAL Routine 05/05/2025 12:45 PM CDT LACTIC ACID BLOOD Routine 05/05/2025 12:45 PM CDT PREPARE CRYOPRECIPITATE UNIT(S) STAT 05/05/2025 12:43 PM CDT PREPARE PLATELET PHERESIS UNIT(S) STAT 05/05/2025 12:43 PM CDT PREPARE FFP UNIT(S) STAT 05/05/2025 12:43 PM CDT PREPARE RBC LEUKOREDUCED UNIT STAT 05/05/2025 12:43 PM CDT PREPARE RBC LEUKOREDUCED UNIT Routine 05/05/2025 12:43 PM CDT TYPE + SCREEN PANEL Routine 05/05/2025 12:43 PM CDT GLUCOSE - POINT OF CARE Routine 05/05/20 8:14 AM CDT PHOSPHORUS BLOOD AM Draw 05/05/2025 2:55 AM CDT MAGNESIUM BLOOD AM Draw 05/05/2025 2:55 AM CDT COMPREHENSIVE METABOLIC PANEL AM Draw 05/05/2025 2:55 AM CDT PT-INR [facility] AM Draw 05/05/2025 2:55 AM CDT CBC W/O DIFFERENTIAL AM Draw 05/05/2025 2:55 AM CDT GLUCOSE - POINT OF CARE Routine 05/04/20 8:25 PM CDT GLUCOSE - POINT OF CARE Routine 05/04/20 5:35 PM CDT GLUCOSE - POINT OF CARE Routine 05/04/20 11:54 AM CDT GLUCOSE - POINT OF CARE Routine 05/04/20 8:23 AM CDT PHOSPHORUS BLOOD AM Draw 05/04/2025 3:28 AM CDT MAGNESIUM BLOOD AM Draw 05/04/2025 3:28 AM CDT COMPREHENSIVE METABOLIC PANEL AM Draw 05/04/2025 3:28 AM CDT PT-INR [facility] AM Draw 05/04/2025 3:27 AM CDT CBC W/O DIFFERENTIAL AM Draw 05/04/2025 3:27 AM CDT GLUCOSE - POINT OF CARE Routine 05/03/20 9:39 PM CDT BASIC METABOLIC PANEL (CALCIUM TOTAL) Routine 05/03/2025 5:57 PM CDT GLUCOSE - POINT OF CARE Routine 05/03/20 5:06 PM CDT GLUCOSE - POINT OF CARE Routine 05/03/20 12:11 PM CDT GLUCOSE - POINT OF CARE Routine 05/03/20 7:54 AM CDT PHOSPHORUS BLOOD AM Draw 05/03/2025 2:19 AM CDT MAGNESIUM BLOOD AM Draw 05/03/2025 2:19 AM CDT COMPREHENSIVE METABOLIC PANEL AM Draw 05/03/2025 2:19 AM CDT PT-INR [facility] AM Draw 05/03/2025 2:19 AM CDT CBC W/O DIFFERENTIAL AM Draw 05/03/2025 2:19 AM CDT GLUCOSE - POINT OF CARE Routine 05/02/20 9:11 PM CDT BASIC METABOLIC PANEL (CALCIUM TOTAL) Routine 05/02/2025 9:00 PM CDT MAGNESIUM BLOOD Routine 05/02/2025 5:02 PM CDT BASIC METABOLIC PANEL (CALCIUM TOTAL) STAT 05/02/2025 5:02 PM CDT GLUCOSE - POINT OF CARE Routine 05/02/20 4:12 PM CDT GLUCOSE - POINT OF CARE Routine 05/02/20 11:34 AM CDT PT EVAL AND TREAT Routine 05/02/2025 10:02 AM CDT OT EVAL AND TREAT Routine 05/02/2025 10:02 AM CDT GLUCOSE - POINT OF CARE Routine 05/02/20 8:52 AM CDT GLUCOSE - POINT OF CARE Routine 05/02/20 8:28 AM CDT MAGNESIUM BLOOD AM Draw 05/02/2025 3:39 AM CDT PHOSPHORUS BLOOD AM Draw 05/02/2025 3:33 AM CDT COMPREHENSIVE METABOLIC PANEL AM Draw 05/02/2025 3:33 AM CDT PT-INR [facility] AM Draw 05/02/2025 3:33 AM CDT CBC W/O DIFFERENTIAL AM Draw 05/02/2025 3:33 AM CDT GLUCOSE - POINT OF CARE Routine 05/02/20 3:24 AM CDT GLUCOSE - POINT OF CARE Routine 05/01/20 11:32 PM CDT GLUCOSE - POINT OF CARE Routine 05/01/20 7:46 PM CDT XR PANOREX Routine 05/01/2025 5:00 PM CDT Decompensated hepatic cirrhosis (HCC) GLUCOSE - POINT OF CARE Routine 05/01/20 4:[address] ABDOMEN PELVIS W CONTRAST Routine 05/01/2025 3:06 PM CDT Intestinal obstruction, unspecified cause, unspecified whether partial or complete (HCC) GLUCOSE - POINT OF CARE Routine 05/01/20 11:07 AM CDT GLUCOSE - POINT OF CARE Routine 05/01/20 8:55 AM CDT GLUCOSE - POINT OF CARE Routine 05/01/20 3:31 AM CDT PHOSPHORUS BLOOD AM Draw 05/01/2025 2:39 AM CDT MAGNESIUM BLOOD AM Draw 05/01/2025 2:39 AM CDT COMPREHENSIVE METABOLIC PANEL AM Draw 05/01/2025 2:39 AM CDT PT-INR [facility] AM Draw 05/01/2025 2:39 AM CDT CBC W/O DIFFERENTIAL AM Draw 05/01/2025 2:39 AM CDT GLUCOSE - POINT OF CARE Routine 05/01/20 1:12 AM CDT GLUCOSE - POINT OF CARE Routine 05/01/20 1:07 AM CDT GLUCOSE - POINT OF CARE Routine 04/30/20 7:42 PM CDT GLUCOSE - POINT OF CARE Routine 04/30/20 3:18 PM CDT MS SIGMOIDOSCOPY,DIAGNOSTI C 04/30/2025 2:18 PM CDT Intestinal obstruction, unspecified cause, unspecified whether partial or complete (HCC) GLUCOSE - POINT OF CARE Routine 04/30/20 2:08 PM CDT ENDOSCOPY, PROCTOSIGMOID Routine 04/30/2025 2:05 PM CDT GLUCOSE - POINT OF CARE Routine 04/30/20 11:47 AM CDT GLUCOSE - POINT OF CARE Routine 04/30/20 8:59 AM CDT GLUCOSE - POINT OF CARE Routine 04/30/20 3:40 AM CDT PHOSPHORUS BLOOD AM Draw 04/30/2025 12:19 AM CDT MAGNESIUM BLOOD AM Draw 04/30/2025 12:19 AM CDT COMPREHENSIVE METABOLIC PANEL AM Draw 04/30/2025 12:19 AM CDT PT-INR [facility] AM Draw 04/30/2025 12:19 AM CDT CBC W/O DIFFERENTIAL AM Draw 04/30/2025 12:19 AM CDT GLUCOSE - POINT OF CARE Routine 04/30/20 12:09 AM CDT GLUCOSE - POINT OF CARE Routine 04/29/20 7:42 PM CDT AMMONIA Routine 04/29/2025 5:43 PM CDT GLUCOSE - POINT OF CARE Routine 04/29/20 3:58 PM CDT GLUCOSE - POINT OF CARE Routine 04/29/20 12:07 PM CDT PHOSPHORUS BLOOD AM Draw 04/29/2025 12:03 PM CDT MAGNESIUM BLOOD AM Draw 04/29/2025 12:03 PM CDT COMPREHENSIVE METABOLIC PANEL AM Draw 04/29/2025 12:03 PM CDT PT-INR [facility] AM Draw 04/29/2025 12:03 PM CDT CBC W/O DIFFERENTIAL AM Draw 04/29/2025 12:03 PM CDT XR ABDOMEN KUB PORTABLE STAT 04/29/20 10:56 AM CDT Nausea and vomiting, unspecified vomiting type Intestinal obstruction, unspecified cause, unspecified whether partial or complete (HCC) GLUCOSE - POINT OF CARE Routine 04/29/20 7:59 AM CDT GLUCOSE - POINT OF CARE Routine 04/29/20 5:07 AM CDT GLUCOSE - POINT OF CARE Routine 04/28/20 11:35 PM CDT GLUCOSE - POINT OF CARE Routine 04/28/20 4:16 PM CDT GLUCOSE - POINT OF CARE Routine 04/28/20 11:21 AM CDT XR ABDOMEN KUB PORTABLE STAT 04/28/20 9:17 AM CDT Intestinal obstruction, unspecified cause, unspecified whether partial or complete (HCC) GLUCOSE - POINT OF CARE Routine 04/28/20 8:04 AM CDT GLUCOSE - POINT OF CARE Routine 04/28/20 7:47 AM CDT FIBRINOGEN ACTIVITY AM Draw 04/28/2025 7:04 AM CDT PTT [facility] AM Draw 04/28/2025 7:04 AM CDT PHOSPHORUS BLOOD AM Draw 04/28/2025 7:04 AM CDT MAGNESIUM BLOOD AM Draw 04/28/2025 7:04 AM CDT COMPREHENSIVE METABOLIC PANEL AM Draw 04/28/2025 7:04 AM CDT PT-INR [facility] AM Draw 04/28/2025 7:04 AM CDT CBC W/O DIFFERENTIAL AM Draw 04/28/2025 7:04 AM CDT GLUCOSE - POINT OF CARE Routine 04/28/20 4:58 AM CDT GLUCOSE - POINT OF CARE Routine 04/28/20 4:37 AM CDT GLUCOSE - POINT OF CARE Routine 04/27/20 11:30 PM CDT GLUCOSE - POINT OF CARE Routine 04/27/20 7:57 PM CDT URINALYSIS REFLEX MICROSCOPIC REFLEX CULTURE Routine 04/27/2025 7:11 PM CDT BLASTOMYCES ANTIGEN QUANT BY EIA URINE Routine 04/27/2025 7:11 PM CDT GLUCOSE - POINT OF CARE Routine 04/27/20 4:34 PM CDT GLUCOSE - POINT OF CARE Routine 04/27/20 4:11 PM CDT CBC W/O DIFFERENTIAL Routine 04/27/2025 3:32 PM CDT XR ABDOMEN KUB PORTABLE STAT 04/27/20 3:29 PM CDT Nausea and vomiting, unspecified vomiting type Intestinal obstruction, unspecified cause, unspecified whether partial or complete (HCC) XR CHEST 1VW PORTABLE Routine 04/27/2025 3:29 PM CDT Acute encephalopathy Decompensated hepatic cirrhosis (HCC) CT ABDOMEN PELVIS W CONTRAST STAT 04/27/2025 1:10 PM CDT Nausea and vomiting, unspecified vomiting type Intestinal obstruction, unspecified cause, unspecified whether partial or complete (HCC) CT HEAD WO CONTRAST STAT 04/27/2025 1:09 PM CDT Acute encephalopathy GLUCOSE - POINT OF CARE Routine 04/27/20 12:02 PM CDT GLUCOSE - POINT OF CARE Routine 04/27/20 9:25 AM CDT COMPREHENSIVE METABOLIC PANEL AM Draw 04/27/2025 6:55 AM CDT PT-INR [facility] AM Draw 04/27/2025 6:55 AM CDT CBC W/O DIFFERENTIAL AM Draw 04/27/2025 6:55 AM CDT GLUCOSE - POINT OF CARE Routine 04/26/20 9:59 PM CDT GLUCOSE - POINT OF CARE Routine 04/26/20 5:15 PM CDT CULTURE BLOOD STAT 04/26/2025 3:49 PM CDT CRYPTOCOCCUS ANTIGEN BLOOD Routine 04/26/2025 3:47 PM CDT CULTURE BLOOD STAT 04/26/2025 3:47 PM CDT HISTOPLASMA ANTIGEN QUANT ADDL SRCS Routine 04/26/2025 3:46 PM CDT ASPERGILLUS GALACTOMANNAN ANTIGEN BLOOD Routine 04/26/2025 3:46 PM CDT [id number] (1,3) (FUNGITELL) Routine 04/26/2025 3:46 PM CDT BLASTOMYCES DERMATITIDIS AG QNT NON URINE Routine 04/26/2025 3:46 PM CDT XR ABDOMEN KUB PORTABLE STAT 04/26/20 11:54 AM CDT Decompensated hepatic cirrhosis (HCC) Nausea and vomiting, unspecified vomiting type GLUCOSE - POINT OF CARE Routine 04/26/20 10:47 AM CDT COMPREHENSIVE METABOLIC PANEL AM Draw 04/26/2025 5:51 AM CDT PT-INR [facility] AM Draw 04/26/2025 5:51 AM CDT CBC W/O DIFFERENTIAL AM Draw 04/26/2025 5:51 AM CDT GLUCOSE - POINT OF CARE Routine 04/25/20 8:04 PM CDT GLUCOSE - POINT OF CARE Routine 04/25/20 6:08 PM CDT GLUCOSE - POINT OF CARE Routine 04/25/20 1:08 PM CDT GLUCOSE - POINT OF CARE Routine 04/25/20 6:11 AM CDT COMPREHENSIVE METABOLIC PANEL AM Draw 04/25/2025 4:33 AM CDT PT-INR [facility] AM Draw 04/25/2025 4:33 AM CDT CBC W/O DIFFERENTIAL AM Draw 04/25/2025 4:33 AM CDT GLUCOSE - POINT OF CARE Routine 04/24/20 8:10 PM CDT GLUCOSE - POINT OF CARE Routine 04/24/20 4:43 PM CDT GLUCOSE - POINT OF CARE Routine 04/24/20 12:23 PM CDT GLUCOSE - POINT OF CARE Routine 04/24/20 11:54 AM CDT GLUCOSE - POINT OF CARE Routine 04/24/20 9:[address] CHEST ABDOMEN PELVIS W CONT Routine 04/24/2025 8:54 AM CDT Hepatocellular carcinoma (HCC) GLUCOSE - POINT OF CARE Routine 04/24/20 8:16 AM CDT ALPHA FETOPROTEIN BLOOD TUMOR MARKER AM Draw 04/24/2025 4:54 AM CDT COMPREHENSIVE METABOLIC PANEL AM Draw 04/24/2025 4:54 AM CDT PT-INR [facility] AM Draw 04/24/2025 4:54 AM CDT CBC W/O DIFFERENTIAL AM Draw 04/24/2025 4:54 AM CDT GLUCOSE - POINT OF CARE Routine 04/23/20 8:33 PM CDT GLUCOSE - POINT OF CARE Routine 04/23/20 5:49 PM CDT GLUCOSE - POINT OF CARE Routine 04/23/20 1:07 PM CDT GLUCOSE - POINT OF CARE Routine 04/23/20 11:37 AM CDT AMMONIA Routine 04/23/2025 11:13 AM CDT EKG 12-LEAD Routine 04/23/2025 10:36 AM CDT Decompensated hepatic cirrhosis (HCC) GLUCOSE - POINT OF CARE Routine 04/23/20 9:07 AM CDT COMPREHENSIVE METABOLIC PANEL AM Draw 04/23/2025 3:57 AM CDT PT-INR [facility] AM Draw 04/23/2025 3:57 AM CDT CBC W/O DIFFERENTIAL AM Draw 04/23/2025 3:57 AM CDT GLUCOSE - POINT OF CARE Routine 04/22/20 6:05 PM CDT GLUCOSE - POINT OF CARE Routine 04/22/20 4:41 PM CDT GLUCOSE - POINT OF CARE Routine 04/22/20 12:[address] LIVER 3 PHASE W PELVIS Routine 04/22/2025 10:33 AM CDT Decompensated hepatic cirrhosis (HCC) PT EVAL AND TREAT Routine 04/22/2025 9:23 AM CDT OT EVAL AND TREAT Routine 04/22/2025 9:23 AM CDT GLUCOSE - POINT OF CARE Routine 04/22/20 8:55 AM CDT XR CHEST 1VW PORTABLE Routine 04/22/2025 6:45 AM CDT Acute encephalopathy PHOSPHATIDYLETHANOL (PETH) AM Draw 04/22/2025 5:16 AM CDT CULTURE BLOOD Timed 04/22/2025 5:16 AM CDT URINALYSIS REFLEX MICROSCOPIC REFLEX CULTURE Routine 04/22/2025 5:09 AM CDT COMPREHENSIVE METABOLIC PANEL STAT 04/22/2025 12:15 AM CDT CBC W AUTO DIFFERENTIAL STAT 04/22/20 12:15 AM CDT CULTURE BLOOD Timed 04/22/2025 12:15 AM CDT LARGE VOLUME PARACENTESIS Routine 03/21/2025 11:38 AM CDT Other ascites Portal hypertension (HCC) Alcoholic cirrhosis of liver with ascites (HCC) PT-INR [facility] Routine 03/21/2025 11:26 AM CDT Other ascites Portal hypertension (HCC) Alcoholic cirrhosis of liver with ascites (HCC) CBC W AUTO DIFFERENTIAL STAT 03/21/20 11:26 AM CDT Other ascites Portal hypertension (HCC) Alcoholic cirrhosis of liver with ascites (HCC) COMPREHENSIVE METABOLIC PANEL STAT 03/21/2025 11:26 AM CDT Other ascites Portal hypertension (HCC) Alcoholic cirrhosis of liver with ascites (HCC) PATHOLOGY SMEAR BODY FLUID STAT 03/21/2025 10:23 AM CDT Other ascites Portal hypertension (HCC) Alcoholic cirrhosis of liver with ascites (HCC) DIFFERENTIAL MANUAL FLUID STAT 03/21/2025 10:23 AM CDT Other ascites Portal hypertension (HCC) Alcoholic cirrhosis of liver with ascites (HCC) CELL COUNT W DIFFERENTIAL FLUID STAT 03/21/2025 10:23 AM CDT Other ascites Portal hypertension (HCC) Alcoholic cirrhosis of liver with ascites (HCC) CULTURE FLUID+GRAM STAIN STAT 03/21/2025 10:23 AM CDT Other ascites Portal hypertension (HCC) Alcoholic cirrhosis of liver with ascites (HCC) MS ABD PARACENTESIS W/IMAGING 03/21/2025 9:10 AM CDT Other ascites Special Needs Message Received: Today Will Mckenzie MD Gravagna, Amy M, RN Cc: Kimberly Negrete RN His diuretics were adjusted today as Lasix 40, spironolactone 100 daily. MELD 23, somewhat improved with abstinence and medical care. I sent a referral for home health services. He has medical transportation, and will need a large-volume paracentesis nonurgently. Message was sent to coordinate. We can repeat labs with paracentesis. HEMOGLOBIN A1C - POINT OF CARE (AMB) Routine 03/18/2025 Type 2 diabetes mellitus without complication, with long-term current use of insulin (HCC) PT-INR [facility] Routine 03/08/2025 11:40 AM CDT Decompensated hepatic cirrhosis (HCC) SBP (spontaneous bacterial peritonitis) (HCC) HEPATIC FUNCTION PANEL Routine 11:40 AM CDT Decompensated hepatic cirrhosis (HCC) SBP (spontaneous bacterial peritonitis) (HCC) CBC W/O DIFFERENTIAL Routine 03/08/2025 11:40 AM CDT Decompensated hepatic cirrhosis (HCC) SBP (spontaneous bacterial peritonitis) (HCC) BASIC METABOLIC PANEL (CALCIUM TOTAL) Routine 03/08/2025 11:40 AM CDT Decompensated hepatic cirrhosis (HCC) SBP (spontaneous bacterial peritonitis) (HCC) HIV-1 HIV-2 ANTIBODY + HIV P24 AG PANEL AM Draw 01/02/2025 12:39 AM SLIP MIXER HEPATITIS SCREEN ACUTE AM Draw 3:19 AM SLIP MIXER from Last 3 Months or Most Recently Relevant to Health Maintenance Results * (ABNORMAL) GLUCOSE - POINT OF CARE (05/15/2025 4:42 PM CDT) Only the most recent of118 resultswithin the time period is included. [facility] Glucose WB/POC 196(H) 70 - 99 mg/dL 05/15/2025 4:44 PM CDT [facility] Specimen Type Arterial/C apillary 05/15/2025 4:44 PM CDT [facility] Blood BLOOD SPECIMEN / Unknown 05/15/2025 4:42 PM CDT 05/15/2025 4:44 PM CDT Cindy Doherty MD LAB - POINT OF CARE ORDERABLES F inal Result [facility] [address] [address], [facility] [phone] * PREPARE (CROSSMATCH) RBC UNIT(S), 1 Units (05/15/2025 2:57 PM CDT) Only the most recent of4 resultswithin the time period is included. [facility] Unit Description -1 LR PRBC LV [facility] Unit ABO B [facility] Rh POS [facility] Product Number R52 [facility] Donor # [id number] [facility] Unit Status transfused [facility] Product Code [id number] [facility] Blood Type Barcode 7300 [facility] Expiration Date [id number] S [facility] Blood Bank BLOOD SPECIMEN / Unknown 05/15/2025 2:57 PM CDT 05/15/2025 3:24 PM CDT Cindy Doherty MD LAB - BLOOD BANK ORDERABLES Mary l Result Performing Organization Address City/[facility]/ZIP Co de Phone Number [facility] [address] [place] [id number], [place] [phone] * TYPE + SCREEN PANEL (05/15/2025 2:57 PM CDT) Only the most recent of3 resultswithin the time period is included. Pathologist [facility] Antibody Screen NEG 4:11 PM CDT [facility] ABO Rh B POS 05/15/2025 4:11 PM CDT [facility] Blood Bank BLOOD SPECIMEN / Unknown Lab Venipuncture / Unknown 05/15/2025 2:57 PM CDT 05/15/2025 3:24 PM CDT Cindy Doherty MD LAB - BLOOD BANK ORDERABLES Mary l Result Performing Organization Address City/[facility]/ZIP Co de Phone Number [facility] [address] [place] [phone], [place] [phone] * (ABNORMAL) CBC W/O DIFFERENTIAL (05/15/2025 3:13 AM CDT) Only the most recent of34 resultswithin the time period is included. WBC 3.1(L) 4.0 - 10.7 x10E9/L 05/15/2025 3:39 AM CDT [facility] RBC Count 2.23(L) 4.30 - 5.80 x10E12/L 05/15/2025 3:39 AM [facility] Hemoglobin 7.0(L) 13.3 - 17.5 g/dL 05/15/2025 3:39 AM [facility] Hematocrit 20.8(L) 38.7 - 51.1 % 05/15/2025 3:39 AM [facility] MCV 93.3 80.0 - 98.0 fL 05/15/2025 3:39 AM [facility] MCH 31.4 26.7 - 33.6 pg 05/15/2025 3:39 AM [facility] MCHC 33.7 31.7 - 36.3 g/dL 05/15/2025 3:39 AM [facility] RDW-CV 20.6(H) 11.3 - 14.8 % 05/15/2025 3:39 AM [facility] Platelet Count 56(L) 150 - 420 x10E9/L 05/15/2025 3:39 AM [facility] MPV 9.7 7.8 - 11.4 fL 05/15/2025 3:39 AM [facility] Blood BLOOD SPECIMEN / Unknown Lab Venipuncture / Unknown 05/15/2025 3:13 AM CDT 05/15/2025 3:19 AM CDT us Tim Valentin MD LAB - HEMATOLOGY ORDERABLES Final Result [facility] [address] [place] [id number], [facility] [phone] * (ABNORMAL) PT-INR [facility] (05/15/2025 3:12 AM CDT) Only the most recent of26 resultswithin the time period is included. PT 22.1(H) 12.1 - 14.8 Seconds 05/15/2025 3:53 AM [facility] INR 2.0 See Comment 05/15/2025 3:53 AM [facility] Comment:The suggested therap eutic range for standard coumadin (warfarin) therapy is an INR of 2.0-3.0. For high-risk patients (Mechanical Mitral Valve Prosthesis, etc.), the suggested prophylactic therapeutic range is an INR of 2.5-3.5. Blood BLOOD SPECIMEN / Unknown Venipuncture / Unknown 05/15/2025 3:12 AM CDT 05/15/2025 3:19 AM CDT Alexi Aguilar MD LAB - COAGULATION OR DERABLES Final Result Performing Organization Address [facility] Co de Phone Number [address] [phone], [facility] [phone] * CALCIUM IONIZED WHOLE BLOOD (05/15/2025 2:34 AM CDT) Only the most recent of17 resultswithin the time period is included. Pathologist [facility] Calcium Ionized 1.22 mmol/L 05/15/2025 3:24 AM CDT [facility] pH 7.37 7.35 - 7.45 pH 05/15/2025 3:24 AM CDT [facility] Ionized Calcium pH Adjusted 1.21 1.19 - 1.34 mmol/L 05/15/2025 3:24 AM CDT [facility] Blood BLOOD SPECIMEN / Unknown 05/15/2025 2:34 AM CDT 05/15/2025 3:15 AM CDT Tim Valentin MD LAB - CHEMISTRY ORDERABLES F inal Result Performing Organization Address [facility] de Phone Number [address] [address], [facility] [phone] * (ABNORMAL) COMPREHENSIVE METABOLIC PANEL (05/15/2025 2:34 AM CDT) Only the most recent of25 resultswithin the time period is included. BUN 7 7 - 26 mg/dL 05/15/2025 3:57 AM CDT [facility] Creatinine 0.69(L) 0.71 - 1.16 mg/dL 05/15/2025 3:57 AM CDT [facility] Sodium 137 136 - 145 mmol/L 05/15/2025 3:57 AM [facility] Potassium 3.8 3.5 - 4.5 mmol/L 05/15/2025 3:57 AM [facility] Chloride 115(H) 98 - 107 mmol/L 05/15/2025 3:57 AM [facility] CO2 20(L) 22 - 29 mmol/L 05/15/2025 3:57 AM [facility] Glucose 128(H) 70 - 99 mg/dL 05/15/2025 3:57 AM [facility] Calcium 7.7(L) 8.4 - 10.2 mg/dL 05/15/2025 3:57 AM [facility] Protein Total 6.3 6.0 - 8.3 g/dL 05/15/2025 3:57 AM [facility] Albumin 2.8(L) 3.4 - 5.0 g/dL 05/15/2025 3:57 AM [facility] Bilirubin Total 2.0(H) 0.2 - 1.2 mg/dL 05/15/2025 3:57 AM [facility] Alkaline Phosphatase 68 40 - 150 U/L 05/15/2025 3:57 AM [facility] ALT 18 5 - 55 U/L 05/15/2025 3:57 AM [facility] AST 38(H) 5 - 34 U/L 05/15/2025 3:57 AM [facility] Anion Gap 2(L) 6 - 16 05/15/2025 3:57 AM [facility] BUN/Creatinine Ratio 10 7 - 23 05/15/2025 3:57 AM [facility] Osmolality Calculated 284 275 - 295 mOsm/kg 05/15/2025 3:57 AM [facility] Albumin/Globulin Ratio 0.8(L) 1.1 - 2.3 05/15/2025 3:57 AM [facility] eGFR by CKD-EPI >90 >=90 mL/min/1.7 3 m2 05/15/2025 3:57 AM [facility] Comment:Estimated Glomerular Filtration Rate (eGFR) calculated using the CKD-EPI Creatinine Equation (2020), per the [employer] and [place] [employer] recommendations. Blood BLOOD SPECIMEN / Unknown Lab Venipuncture / Unknown 05/15/2025 2:34 AM CDT 05/15/2025 3:09 AM CDT Alexi Aguilar MD LAB - CHEMISTRY RYLEE HENRIQUEZ Final Result Performing Organization Address City/[facility]/ZIP Co de Phone Number [address] [address], [facility] [phone] * (ABNORMAL) PHOSPHORUS BLOOD (05/15/2025 2:34 AM CDT) Only the most recent of15 resultswithin the time period is included. Phosphorus 2.4(L) 2.8 - 5.1 mg/dL 05/15/2025 3:57 AM CDT [facility] Blood BLOOD SPECIMEN / Unknown Lab Venipuncture / Unknown 05/15/2025 2:34 AM CDT 05/15/2025 3:09 AM CDT Tim Valentin MD LAB - CHEMISTRY ORDERABLES F inal Result Performing Organization Address [facility] Co de Phone Number [address] [address], [facility] [phone] * MAGNESIUM BLOOD (05/15/2025 2:34 AM CDT) Only the most recent of26 resultswithin the time period is included. Magnesium 2.2 1.6 - 2.6 mg/dL 05/15/2025 3:57 AM CDT [facility] Blood BLOOD SPECIMEN / Unknown Lab Venipuncture / Unknown 05/15/2025 2:34 AM CDT 05/15/2025 3:09 AM CDT Tim Valentin MD LAB - CHEMISTRY ORDERABLES F inal Result Performing Organization Address City/[facility]/ZIP Co de Phone Number [address] [address], [facility] [phone] * (ABNORMAL) BASIC METABOLIC PANEL (CALCIUM TOTAL) (05/14/2025 5:59 PM CDT) Only the most recent of11 resultswithin the time period is included. BUN 7 7 - 26 mg/dL 05/14/2025 9:03 PM [facility] Creatinine 0.63(L) 0.71 - 1.16 mg/dL 05/14/2025 9:03 PM [facility] Sodium 136 136 - 145 mmol/L 05/14/2025 9:03 PM [facility] Potassium 4.2 3.5 - 4.5 mmol/L 05/14/2025 9:03 PM [facility] Chloride 113(H) 98 - 107 mmol/L 05/14/2025 9:03 PM [facility] CO2 14(L) 22 - 29 mmol/L 05/14/2025 9:03 PM [facility] Glucose 118(H) 70 - 99 mg/dL 05/14/2025 9:03 PM [facility] Calcium 7.5(L) 8.4 - 10.2 mg/dL 05/14/2025 9:03 PM [facility] Anion Gap 9 6 - 16 05/14/2025 9:03 PM [facility] BUN/Creatinine Ratio 11 7 - 23 05/14/2025 9:03 PM [facility] Osmolality Calculated 281 275 - 295 mOsm/kg 05/14/2025 9:03 PM [facility] eGFR by CKD-EPI >90 >=90 mL/min/1.7 3 m2 05/14/2025 9:03 PM [facility] Comment:Estimated Glomerular Filtration Rate (eGFR) calculated using the CKD-EPI Creatinine Equation (2020), per the National Kidney Foundation and [place] [employer] recommendations. Blood BLOOD SPECIMEN / Unknown Lab Venipuncture / Unknown 05/14/2025 5:59 PM CDT 05/14/2025 8:18 PM CDT us Cornell Pierre MD LAB - CHEMISTRY ORDERABLES Final Result [address] [address], [facility] [phone] * CK BLOOD (05/14/2025 1:12 PM CDT) CK Total 58 30 - 200 U/L 05/14/2025 2:47 PM CDT [facility] Blood BLOOD SPECIMEN / Unknown Lab Venipuncture / Unknown 05/14/2025 1:12 PM CDT 05/14/2025 1:56 PM CDT [facility] LAB - CHEMISTRY ORDERABLES Final Result Performing Organization Address [facility] Co de Phone Number [address] [address], [facility] [phone] * CT Head Wo Contrast (05/14/2025 9:27 AM CDT) Only the most recent of2 resultswithin the time period is included. Anatomical Region Laterality Modality Head Computed Tomogra phy 05/14/2025 9:37 AM CDT Impressions 05/14/2025 9:42 AM CDT IMPRESSION: 1. No acute intracranial process. 2. 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 > Interpreting Provider: Kim Owen MD on 05/14/2025 9:42 AM Narrative 05/14/2025 9:42 AM CDT PROCEDURE: CT HEAD WO CONTRAST, DATE/TIME OF EXAM: 05/14/2025 9:27 AM, LOCATION [facility] INDICATION: W19.XXXA: Fall, initial encounter ADDITIONAL CLINICAL INFORMATION: Ordering Provider Reason For Exam: unwitnessed fall while inpatient; thrombocytopenic/coagulopathic at baseline, exclude traumatic ich Technologist Note: Additional: TECHNIQUE: CT of the head was performed without contrast according to standard protocol. CONTRAST: COMPARISON: 04/27/2025. FINDINGS: No acute intracranial hemorrhage or intra- or extra-axial fluid collections are identified. There is mild cerebral volume loss with associated ex vacuo ventricular dilatation. The basal cisterns are patent. No mass effect or midline shift is seen. The ennis-white matter differentiation is normal. Periventricular white matter hypoattenuation is a nonspecific finding that may be indicative of chronic small vessel ischemic disease. There is atherosclerotic calcification of the carotid siphons. Other than mild paranasal sinus disease, the visualized portions of the orbits, paranasal sinuses, and mastoids appear normal. No acute calvarial fracture is identified. Procedure Note Kim Owen MD - 05/14/2025 PROCEDURE: CT HEAD WO CONTRAST, DATE/TIME OF EXAM: 05/14/2025 9:27 AM, LOCATION [facility] INDICATION: W19.XXXA: Fall, initial encounter ADDITIONAL CLINICAL INFORMATION: Ordering Provider Reason For Exam: unwitnessed fall while inpatient; thrombocytopenic/coagulopathic at baseline, exclude traumatic ich Technologist Note: Additional: TECHNIQUE: CT of the head was performed without contrast according to standard protocol. CONTRAST: COMPARISON: 04/27/2025. FINDINGS: No acute intracranial hemorrhage or intra- or extra-axial fluidcollections are identified. There is mild cerebral volume loss with associated exvacuo ventricular dilatation. The basal cisterns are patent. No mass effect or midline shift is seen. The ennis-white matter differentiation is normal. Periventricular white matter hypoattenuation is a nonspecific findingthat may be indicative of chronic small vessel ischemic disease. There is atherosclerotic calcification of the carotid siphons. Other than mild paranasal sinus disease, the visualized portions of the orbits, paranasal sinuses, and mastoids appear normal. No acute calvarial fracture is identified. IMPRESSION: 1. No acute intracranial process. 2. Chronic small vessel ischemic disease of the brain with cerebralvolume loss. > Interpreting Provider: Kim Owen MD on 05/14/2025 9:[address] [facility] [address] ORDERABLES Final Result * AMMONIA (05/14/2025 2:43 AM CDT) Only the most recent of3 resultswithin the time period is included. Ammonia 40 <=72 umol/L 05/14/2025 4:08 AM CDT [facility] Blood BLOOD SPECIMEN / Unknown Lab Venipuncture / Unknown 05/14/2025 2:43 AM CDT 05/14/2025 4:08 AM CDT Cornell Pierre MD LAB - CHEMISTRY ORDERABLES Final Result Performing Organization Address City/[facility]/ZIP Co de Phone Number [address] [address], [facility] [phone] * (ABNORMAL) HGB HCT PANEL (05/11/2025 9:57 PM CDT) Only the most recent of2 resultswithin the time period is included. Pathologist [facility] Hemoglobin 8.3(L) 13.3 - 17.5 g/dL 05/11/2025 10:16 PM CDT [facility] Hematocrit 25.5(L) 38.7 - 51.1 % 05/11/2025 10:16 PM CDT [facility] Blood BLOOD SPECIMEN / Unknown Venipuncture / Unknown 05/11/2025 9:57 PM CDT 05/11/2025 10:00 PM CDT Cornell Pierre MD LAB - HEMATOLOGY ORDERABLES Final Result Performing Organization Address [facility] de Phone Number [address] [address], [facility] [phone] * (ABNORMAL) CBC W AUTO DIFFERENTIAL (05/11/2025 1:29 PM CDT) Only the most recent of3 resultswithin the time period is included. WBC 6.4 4.0 - 10.7 x10E9/L 05/11/2025 2:36 PM CDT [facility] RBC Count 2.83(L) 4.30 - 5.80 x10E12/L 05/11/2025 2:36 PM CDT [facility] Hemoglobin 8.7(L) 13.3 - 17.5 g/dL 05/11/2025 2:36 PM T [facility] Hematocrit 27.7(L) 38.7 - 51.1 % 05/11/2025 2:36 PM CDT [facility] MCV 97.9 80.0 - 98.0 fL 05/11/2025 2:36 PM [facility] MCH 30.7 26.7 - 33.6 pg 05/11/2025 2:36 PM [facility] MCHC 31.4(L) 31.7 - 36.3 g/dL 05/11/2025 2:36 PM [facility] RDW-CV 21.1(H) 11.3 - 14.8 % 05/11/2025 2:36 PM [facility] Platelet Count 77(L) 150 - 420 x10E9/L 05/11/2025 2:36 PM [facility] MPV 10.4 7.8 - 11.4 fL 05/11/2025 2:36 PM [facility] Neutrophil % 76.7(H) 41.0 - 74.0 % 05/11/2025 2:36 PM [facility] Lymphocyte % 11.3(L) 17.0 - 47.0 % 05/11/2025 2:36 PM [facility] Monocyte % 8.6 3.0 - 11.0 % 05/11/2025 2:36 PM [facility] Eosinophil % 2.2 0.0 - 7.0 % 05/11/2025 2:36 PM [facility] Basophil % 0.9 0.0 - 1.6 % 05/11/2025 2:36 PM [facility] Immature Granulocytes % 0.3 0.0 - 1.0 % 05/11/2025 2:36 PM [facility] Neutrophil Absolute 4.87 1.60 - 7.50 x10E9/L 05/11/2025 2:36 PM [facility] Lymphocyte Absolute 0.72(L) 1.00 - 4.40 x10E9/L 05/11/2025 2:36 PM [facility] Monocyte Absolute 0.55 0.15 - 1.00 x10E9/L 05/11/2025 2:36 PM [facility] Eosinophil Absolute 0.14 0.00 - 0.60 x10E9/L 05/11/2025 2:36 PM [facility] Basophil Absolute 0.06 0.00 - 0.13 x10E9/L 05/11/2025 2:36 PM [facility] Blood BLOOD SPECIMEN / Unknown Venipuncture / Unknown 05/11/2025 1:29 PM CDT 05/11/2025 1:50 PM CDT us Cornell Pierre MD LAB - HEMATOLOGY ORDERABLES Final Result [facility] [address] [place] [address], [facility] [phone] * (ABNORMAL) RENAL FUNCTION PANEL (05/11/2025 1:29 PM CDT) Only the most recent of15 resultswithin the time period is included. BUN 20 7 - 26 mg/dL 05/11/2025 2:20 PM [facility] Creatinine 0.64(L) 0.71 - 1.16 mg/dL 05/11/2025 2:20 PM [facility] Sodium 155(H) 136 - 145 mmol/L 05/11/2025 2:20 PM [facility] Potassium 3.4(L) 3.5 - 4.5 mmol/L 05/11/2025 2:20 PM [facility] Chloride 131(H) 98 - 107 mmol/L 05/11/2025 2:20 PM [facility] CO2 18(L) 22 - 29 mmol/L 05/11/2025 2:20 PM [facility] Glucose 111(H) 70 - 99 mg/dL 05/11/2025 2:20 PM [facility] Albumin 2.5(L) 3.4 - 5.0 g/dL 05/11/2025 2:20 PM [facility] Calcium 7.9(L) 8.4 - 10.2 mg/dL 05/11/2025 2:20 PM [facility] Phosphorus 3.3 2.8 - 5.1 mg/dL 05/11/2025 2:20 PM [facility] Anion Gap 6 6 - 16 05/11/2025 2:20 PM [facility] BUN/Creatinine Ratio 31(H) 7 - 23 05/11/2025 2:20 PM CDT [facility] Osmolality Calculated 323(H) 275 - 295 mOsm/kg 05/11/2025 2:20 PM CDT [facility] eGFR by CKD-EPI >90 >=90 mL/min/1.7 3 m2 05/11/2025 2:20 PM CDT [facility] Comment:Estimated Glomerular Filtration Rate (eGFR) calculated using the CKD-EPI Creatinine Equation (2020), per the National Kidney Foundation and [place] [employer] recommendations. Blood BLOOD SPECIMEN / Unknown Venipuncture / Unknown 05/11/2025 1:29 PM CDT 05/11/2025 1:50 PM CDT Tim Valentin MD LAB - CHEMISTRY ORDERABLES F inal Result [facility] [address] [place] [address], [facility] [phone] * TRANSFUSE RED BLOOD CELL LEUKOREDUCED UNIT(S) (05/11/2025 12:19 PM CDT) us Cornell Pierre MD NURSING - BLOOD PROD TRANSF USION Final Result * METHYLMALONIC ACID BLOOD (05/11/2025 5:48 AM CDT) [facility] Methylmalonic Acid 0.30 0.00 - 0.40 umol/L 05/14/2025 4:57 AM CDT [facility] ([facility]) Comment: INTERPRETIVE INFORMATION: MMA Serum/Plasma, Vitamin B12 Status This test was developed and its performance characteristics determined by [facility]. It has not been cleared or approved by the [place] Food and Drug Administration. This test was performed in a CLIA certified laboratory and is intended for clinical purposes. Performed By: [facility] [address] [place] [id number] Medical Practice Manager: Salomón Monroe MD, PhD CLIA Number: [id number] Blood BLOOD SPECIMEN / Unknown Venipuncture / Unknown 05/11/2025 5:48 AM CDT 05/11/2025 5:52 AM CDT us Cornell Pierre MD LAB - CHEMISTRY ORDERABLES Final Result [facility] [employer] [facility] [address] [address] [place] [address], [facility] * FOLATE (05/11/2025 5:48 AM CDT) Folate 12.9 7.0 - 31.4 ng/mL 05/11/2025 6:54 AM CDT [facility] Blood BLOOD SPECIMEN / Unknown Venipuncture / Unknown 05/11/2025 5:48 AM CDT 05/11/2025 5:52 AM CDT Cornell Pierre MD LAB - CHEMISTRY ORDERABLES Final Result [address] [address], [facility] [phone] * (ABNORMAL) VITAMIN B12 (05/11/2025 5:48 AM CDT) Vitamin B12 1,291(H) 213 - 816 pg/mL 05/11/2025 6:54 AM CDT [facility] Blood BLOOD SPECIMEN / Unknown Venipuncture / Unknown 05/11/2025 5:48 AM CDT 05/11/2025 5:52 AM CDT Cornell Pierre MD LAB - CHEMISTRY ORDERABLES Final Result [address] [address], [place] [phone] * (ABNORMAL) IRON + TRANSFERRIN PANEL (05/11/2025 5:48 AM CDT) Iron 24(L) 50 - 175 ug/dL 05/11/2025 6:19 AM CDT [facility] Transferrin 114(L) 174 - 382 mg/dL 05/11/2025 6:19 AM CDT [facility] Transferrin Saturation % 17 16 - 50 % 05/11/2025 6:19 AM CDT [facility] TIBC Calculated 143(L) 240 - 450 ug/dL 05/11/2025 6:19 AM CDT [facility] Blood BLOOD SPECIMEN / Unknown Venipuncture / Unknown 05/11/2025 5:48 AM CDT 05/11/2025 5:52 AM CDT Cornell Pierre MD LAB - CHEMISTRY ORDERABLES Final Result [address] [address], [place] [phone] * FERRITIN (05/11/2025 5:48 AM CDT) Ferritin 93 22 - 275 ng/mL 05/11/2025 6:36 AM CDT [facility] Blood BLOOD SPECIMEN / Unknown Venipuncture / Unknown 05/11/2025 5:48 AM CDT 05/11/2025 5:52 AM CDT us Cornell Pierre MD LAB - CHEMISTRY ORDERABLES Final Result Performing Organization Address City/[facility]/ZIP Co de Phone Number [address] [address], [place] [phone] * LYTES (NA K CL) URINE RANDOM PANEL (05/10/2025 6:33 PM CDT) Sodium Urine 98 Not Established mmol/L 05/10/2025 6:51 PM CDT [facility] Potassium Urine 67.2 Not Established mmol/L 05/10/2025 6:51 PM CDT [facility] Chloride Random Urine 168 Not Established mmol/L 05/10/2025 6:51 PM CDT [facility] Urine URINE SPECIMEN OBTAINED BY CLEAN CATCH PROCEDURE / Unknown Collection / Unknown 05/10/2025 6:33 PM CDT 05/10/2025 6:38 PM CDT Tim Valentin MD LAB - URINE CHEMISTRY ORDERA BLES Final Result [facility] [address] [place] [address], [facility] [phone] * (ABNORMAL) BLOOD GASES ART + COOX PANEL (05/08/2025 11:57 AM T) Only the most recent of14 resultswithin the time period is included. pH Arterial 7.38 7.35 - 7.45 pH 05/08/2025 12:12 PM [facility] pO2 Arterial 166(H) 80 - 100 mmHg 05/08/2025 12:12 PM [facility] pCO2 Arterial 29(L) 35 - 45 mmHg 12:12 PM [facility] HCO3 Arterial 17.2(L) 20.0 - 30.0 mmol/L 05/08/2025 12:12 PM [facility] BE Arterial -7.0(L) -2.0 - 2.0 mmol/L 05/08/2025 12:12 PM [facility] Oxyhemoglobin Arterial 96.1 % 05/08/2025 12:12 PM [facility] Dexoyhemoglobin (HHB) % 1.6 % 05/08/2025 12:12 PM [facility] Methemoglobin 0.9 0.0 - 2.0 % 05/08/2025 12:12 PM [facility] Carboxyhemoglobin 1.4 0.0 - 2.0 % 2024 12:12 PM [facility] O2 Content Arterial 12.3 Interpret within clinical context ml/dL 05/08/2025 12:12 PM [facility] Hemoglobin by COOX 8.8(L) 12.0 - 17.6 g/dL 05/08/2025 12:12 PM [facility] O2 Saturation Arterial 98 90 - 100 % 05/08/2025 12:12 PM [facility] FI O2 Arterial 40.0 % 05/08/2025 12:12 PM [facility] Blood, arterial ARTERIAL BLOOD SPECIMEN / Unknown Arterial Puncture / Unknown 05/08/2025 11:57 AM CDT 05/08/2025 12:08 PM CDT Narrative [facility] - 05/08/2025 12:12 PM CDT Carboxyhemoglobin Normal Concentration: Non-smokers: 0-2%; Smokers: 0-9%; Toxic: >20% us Tim Valentin MD LAB - BLOOD GASES ORDERABLES Final Result Performing Organization Address City/[facility]/ZIP Co de Phone Number [address] [address], [facility] [phone] * (ABNORMAL) LACTIC ACID BLOOD (05/08/2025 3:59 AM CDT) Only the most recent of11 resultswithin the time period is included. Lactic Acid-Stat 2.6(H) <=2.0 mmol/L 05/08/2025 4:35 AM CDT [facility] Blood BLOOD SPECIMEN / Unknown Venipuncture / Unknown 05/08/2025 3:59 AM CDT 05/08/2025 4:05 AM CDT us Tim Valentin MD LAB - CHEMISTRY ORDERABLES F inal Result Performing Organization Address [facility] Co de Phone Number [address] [address], [facility] [phone] * XR Abdomen Kub Portable (05/07/2025 5:45 PM CDT) Only the most recent of5 resultswithin the time period is included. Anatomical Region Laterality Modality Abdomen Digital Radiogra phy 05/08/2025 10:5 3 AM CDT Narrative 05/08/2025 11:22 AM CDT PROCEDURE: XR ABDOMEN KUB PORTABLE DATE/TIME OF EXAM: 05/07/2025 5:45 PM Indication: K72.90: Decompensated hepatic cirrhosis (HCC) K74.60: Decompensated hepatic cirrhosis (HCC) Additional History: COMPARISON: Abdominal radiograph 04/29/2025 FINDINGS/IMPRESSION: An enteric tube is seen coursing below the diaphragm into the stomach with its tip positioned at the gastric body. Report dictated by Guicho Adler MD (resident care manager). I, Ustun Aydingoz, MD have personally reviewed and interpreted this examination/study. > Interpreting Provider: Jaime Bah MD on 05/08/2025 11:22 AM Procedure Note Jaime Bah MD - 05/08/2025 PROCEDURE: XR ABDOMEN KUB PORTABLE DATE/TIME OF EXAM: 05/07/2025 5:45 PM Indication: K72.90: Decompensated hepatic cirrhosis (HCC) K74.60: Decompensated hepatic cirrhosis (HCC) Additional History: COMPARISON: Abdominal radiograph 04/29/2025 FINDINGS/IMPRESSION: An enteric tube is seen coursing below the diaphragm into the stomachwith its tip positioned at the gastric body. Report dictated by Guicho Adler MD (resident care manager). Jaime Saldana MD have personally reviewed and interpreted this examination/study. > Interpreting Provider: Jaime Bah MD on 05/08/2025 11:22 AM Tim Valentin MD DIAGNOSTIC IMAGING ORDERABLE S Final Result * TEG 6 GLOBAL HEMOSTASIS W/ LYSIS (05/07/2025 6:15 AM CDT) Only the most recent of3 resultswithin the time period is included. Citrated Kaolin R (Reaction Time) 7.9 4.6 - 9.1 min 05/07/2025 7:28 AM CDT [facility] Citrated Kaolin LY30 (Lysis) 0.3 0.0 - 2.6 % 05/07/2025 7:28 AM CDT [facility] Citrated Functional Fibrinogen MA (Max Amplitude) 19.8 15.0 - 32.0 mm 05/07/2025 7:28 AM [facility] Citrated RapidTEG MA (Max Amplitude) 55.4 52.0 - 70.0 mm 05/07/2025 7:28 AM [facility] Blood BLOOD SPECIMEN / Unknown Venipuncture / Unknown 05/07/2025 6:15 AM CDT 05/07/2025 6:25 AM CDT Rex Pedro MD LAB - HEMATOLOGY ORDERABLES Fi nal Result [address] [address], [facility] [phone] * TRIGLYCERIDES BLOOD (05/07/2025 5:08 AM CDT) Triglycerides 81 <150 mg/dL 05/07/2025 5:52 AM CDT [facility] Comment: ATP III Classification of Triglycerides: <150 mg/dL: Normal 150 - 199 mg/dL: Borderline High 200 - 400 mg/dL: High >500 mg/dL: Very High Blood BLOOD SPECIMEN / Unknown Venipuncture / Unknown 05/07/2025 5:08 AM CDT 05/07/2025 5:21 AM CDT us Rex Pedro MD LAB - CHEMISTRY ORDERABLES Fin al Result Performing Organization Address [facility] Co de Phone Number [address] [address], [facility] [phone] * ECHO COMPLETE W CONTRAST (05/06/2025 7:53 AM CDT) IVSd 2D 1.057 cm SSM CV FUJ I PACS LVIDd 5.132 cm SSM CV FUJ I PACS LVIDs 2.988 cm SSM CV FUJ I PACS LVOT diam 2.47 cm SSM CV FUJ I PACS LVPWd 1.092 cm SSM CV FUJ I PACS LV biplane EF 73.065 % SSM CV FUJI PACS LV A2C EF 73.369 % SSM CV FUJ I PACS LV A4C EF 73.819 % SSM CV FUJ I PACS LV EDV A2C 108.031 ml SSM CV FU JI PACS LV EDV A4C 165.271 ml SSM CV FU JI PACS LV ESV A2C 28.77 ml SSM CV FU JI PACS LV ESV A4C 43.269 ml SSM CV FU JI PACS LVOT pk grad 9.541 mmHg SSM CV FUJI PACS LVOT pk henok 154.441 cm/s SSM CV F UJI PACS LVOT VTI 24.562 cm SSM CV FUJ I PACS RV-arredondo basal diam 4.861 cm SSM CV FUJI PACS RVOT pk henok 135.578 cm/s SSM CV F UJI PACS RVOT VTI 24.031 cm SSM CV FUJ I PACS LA size 5.22 cm SSM CV FUJ I PACS LA vol BP 68.603 ml SSM CV FUJ I PACS RA area 18.839 cm SSM CV FUJI PACS AV area pk henok 3.529 cm SSM CV FUJI PACS AV area cont VTI 4.266 cm SSM CV FUJI PACS AV pk grad 17.592 mmHg SSM CV FU JI PACS AV mn grad 7.068 mmHg SSM CV FU JI PACS AV pk henok 209.716 cm/s SSM CV FUJ I PACS AV VTI 27.587 cm SSM CV FUJ I PACS MV A pk henok 70.56 cm/s SSM CV F UJI PACS MV E pk henok 98.577 cm/s SSM CV F UJI PACS MV E' lateral henok 14.677 cm/s SS M CV FUJI PACS MV mn grad 2.252 mmHg SSM CV FU JI PACS MV VTI 22.488 cm SSM CV FUJ I PACS PV pk henok 193.688 cm/s SSM CV FUJ I PACS PV VTI 30.017 cm SSM CV FUJ I PACS TAPSE 3.584 cm SSM CV FUJ I PACS Ascending aorta 3.413 cm SSM CV FUJI PACS AV area index 2.138 cm /m SSM CV FUJI PACS LA vol index 0.034 l/m SSM CV FUJI PACS Dimensionless Index 0.89 unitless SSM CV FUJI PACS Myocardial strain charge 2 unitless SSM CV FUJI PACS Sinus of Valsalva 3.423 cm SS M CV FUJI PACS Anatomical Region Laterality Modality Ultrasound 05/06/2025 7:13 AM CDT Narrative 05/06/2025 9:55 AM CDT Summary * The left ventricle is normal in size, with hyperdynamic systolic function and an estimated ejection fraction of 73 % by biplane method of disks. Left ventricular wall motion is normal. * The left ventricular diastolic function is normal. * Right ventricle is normal in size with normal systolic function. * No hemodynamically significant valve disease. Patient Info Name: Brodie Ochoa Age: 49 years : 1975 Gender: Male Ht: 69 in Wt: 178 lb BSA: 2.00 m2 HR: 92 bpm BP: 153 / 82 mmHg Exam Date: 05/06/2025 7:13 AM Patient Status: I/P Study Site: [facility] Info Technical Quality: Fair Exam Type: ECHO COMPLETE W CONTRAST Indications R57.8 - Hemorrhagic shock (HCC) Procedure(s) * A complete 2D, color Doppler, spectral Doppler, and M-Mode transthoracic echocardiogram was performed. * An Ultrasound Enhancing Agent (UEA) was utilized to enhance endocardial definition, opacify the left ventricle and further assess left ventricular function and wall motion. Contrast/Agitated Saline Contrast / Saline: Definity Amount: 1.50 ml Reaction to Contrast: no Reason for Technically Difficult Study: patient on ventilation, lung interference Staff Referring Physician: Rex Pedro Ordering Provider: Rex Pedro Attending Physician: eRx Pedro [place] Recreation Manager: Bassem Martinez Left Ventricle Left ventricular systolic function is hyperdynamic with an estimated ejection fraction of 73 % by biplane method of disks. The left ventricle is normal in size. The left ventricular mass is normal with concentric remodeling. Left ventricular segmental wall motion is normal. The left ventricular diastolic function is normal. Right Ventricle The right ventricle is normal in size. Right ventricular systolic function is normal. Left Atrium The left atrium is at the upper limits of normal in size with a left atrial volume index of 34 ml/m2 by BP MOD. Right Atrium The right atrium is normal in size. Atrial Septum Intact interatrial septum visualized by 2D and color Doppler imaging. Aortic Valve The aortic valve is trileaflet. There is no aortic valve regurgitation. There is no aortic valve stenosis with a peak velocity of 2.1 m/s, mean gradient of 7 mmHg, and aortic valve area of 4.27 cm2. Pulmonic Valve The pulmonic valve is not well visualized, but grossly normal. There is no pulmonic valve stenosis. There is no significant pulmonic regurgitation. Mitral Valve The mitral valve is normal. There is no mitral valve stenosis. There is no clinically significant mitral valve regurgitation. Tricuspid Valve The tricuspid valve is normal. There is no tricuspid valve stenosis. There is no clinically significant tricuspid valve regurgitation. Unable to assess pulmonary pressures due to a lack of tricuspid and pulmonic regurgitation. Inferior Vena Cava The inferior vena cava is normal in size (< 2.1 cm). There is > 50% collapse of the IVC upon inspiration with an estimated right atrial pressure of 3 mmHg. Pericardium/Pleural There is no pericardial effusion. Aorta The aortic root at the sinus of Valsalva is normal in size measuring 3.4 cm with an index of 1.7 cm/m2. The ascending aorta is normal in size measuring 3.4 cm with an index of 1.7 cm/m2. Measurements Left Ventricular Outflow Tract Name Value Normal LVOT 2D LVOT Diameter 2.5 cm LVOT Area 4.8 cm2 LVOT Doppler LVOT Peak Velocity 1.5 m/s LVOT Peak Gradient 10 mmHg LVOT Mean Velocity 94.56 cm/s LVOT Mean Gradient 4 mmHg LVOT VTI 24.6 cm LVOT VTI/AV VTI Ratio 0.9 LVOT Stroke Volume 118 ml LVOT Stroke Volume Index 59 ml/m2 35-58 LVOT CO 10.8 l/min LVOT CI 5.4 l/min/m2 Pulmonic Valve Name Value Normal RVOT Doppler RVOT Peak Velocity 1.4 m/s RVOT Peak Gradient 7 mmHg RVOT Mean Gradient 5 mmHg PV Doppler PV Peak Velocity 1.9 m/s PV Peak Gradient 15 mmHg PV Mean Gradient 8 mmHg Mitral Valve Name Value Normal MV Doppler MV Peak Gradient 5 mmHg MV Mean Gradient 2 mmHg MV DI (VTI) 0.92 MV PHT 48 ms MV Area (PHT) 4.56 cm2 4.00-5.00 MV Area (Cont Eq VTI) 5.23 cm2 MV Diastolic Function MV E Peak Velocity 1.0 m/sec MV A Peak Velocity 0.7 m/sec MV E/A 1.4 MV Decel Time (PW) 166 ms MV Annular TDI MV Septal e' Velocity 9 cm/s >=8 MV E/e' (Septal) 11 <=8 MV Lateral e' Velocity 15 cm/s >=10 MV E/e' (Lateral) 7 <=8 MV e' Average 12 cm/s MV E/e' (Average) 9 Tricuspid Valve Name Value Normal Estimated PAP/RSVP RA Pressure 3 mmHg <=5 TV Annular TDI TV Lateral Addie s' Velocity 30 cm/s 10-19 Aorta Name Value Normal Ascending Aorta Sinus of Valsalva Diameter 3.4 cm 2.8-4.0 Sinus of Valsalva Index 1.7 cm/m2 1.3-2.1 Asc Ao Diameter 3.4 cm 2.2-3.8 Asc Ao Diameter Index 1.7 cm/m2 1.1-1.9 Aortic Valve Name Value Normal AV 2D/MM AV Cusp Sep (MM) 2.2 cm AV Doppler AV Peak Velocity 2.10 m/s AV Peak Gradient 18 mmHg AV Mean Gradient 7 mmHg AV VTI 28 cm AV Area (Cont Eq VTI) 4.27 cm2 >=2.00 AV Area (Cont Eq Henok) 3.53 cm2 AV DI (VTI) 0.89 AV DI (Henok) 0.74 AV Regurgitation 2D LVOT Area 4.79 cm2 Ventricles Name Value Normal LV Dimensions 2D/MM IVS Diastolic Thickness (2D) 1.1 cm 0.6-1.0 LVID Diastole (2D) 5.1 cm 4.2-5.8 LVPW Diastolic Thickness (2D) 1.1 cm 0.6-1.0 LVID Systole (2D) 3.0 cm 2.5-4.0 LV Mass (2D Cubed) 209 g 88-224 LV Mass Index (2D Cubed) 105 g/m2 49-115 Relative Wall Thickness (2D) 0.43 <=0.42 LV Fractional Shortening/Ejection Fraction 2D/MM LV Fractional Shortening (2D) 42 % 25-43 LV EF (2D Teichshaheenz) 72 % 52-72 LV Diastolic Volume (4C MOD) 165 ml LV EF (4C MOD) 74 % LV Diastolic Volume (2C MOD) 108 ml LV EF (2C MOD) 73 % LV Diastolic Volume (BP MOD) 137 ml 62-150 LV Diastolic Volume Index (BP MOD) 68 ml/m2 34-74 LV Systolic Volume (BP MOD) 37 ml 21-61 LV Systolic Volume Index (BP MOD) 18 ml/m2 11-31 LV EF (BP MOD) 73 % 52-72 LV Diastolic Length (4C) 8.5 cm LV Systolic Length (4C) 6.3 cm LV Stroke Volume (4C MOD) 122 ml RV Dimensions 2D/MM RV Basal Diastolic Dimension 4.9 cm 2.5-4.1 TAPSE 3.6 cm >=1.7 Atria Name Value Normal LA Dimensions LA Dimension (2D) 5.2 cm 3.0-4.1 LA Dimen Index (2D) 2.6 cm/m2 LA Volume (BP MOD) 69 ml LA Volume Index (BP MOD) 34 ml/m2 16-34 RA Dimensions RA Area (4C) 19 cm2 <=18 RA Area (4C) Index 9 cm2/m2 Report Signatures Finalized by Lisa Montemayor on 05/06/2025 09:55 AM Procedure Note Lisa Montemayor MD - 05/06/2025 Summary * The left ventricle is normal in size, with hyperdynamic systolicfunction and an estimated ejection fraction of 73 % by biplane method of disks.Left ventricular wall motion is normal. * The left ventricular diastolic function is normal. * Right ventricle is normal in size with normal systolic function. * No hemodynamically significant valve disease. Patient Info Name: Brodie Ochoa Age: 49 years : 1975 Gender: Male Ht: 69 in Wt: 178 lb BSA: 2.00 m2 HR: 92 bpm BP: 153 / 82 mmHg Exam Date: 05/06/2025 7:13 AM Patient Status: I/P Study Site: [facility] Primary Location: [facility] Info Technical Quality: Fair Exam Type: ECHO COMPLETE W CONTRAST Indications R57.8 - Hemorrhagic shock (HCC) Procedure(s) * A complete 2D, color Doppler, spectral Doppler, and M-Modetransthoracic echocardiogram was performed. * An Ultrasound Enhancing Agent (UEA) was utilized to enhanceendocardial definition, opacify the left ventricle and further assess leftventricular function and wall motion. Contrast/Agitated Saline Contrast / Saline: Definity Amount: 1.50 ml Reaction to Contrast: no Reason for Technically Difficult Study: patient on ventilation,lung interference Staff Referring Physician: Rex Pedro Ordering Provider: Rex Pedro Attending Physician: Rex Pedro Park Recreation Manager: Bassem Martinez Left Ventricle Left ventricular systolic function is hyperdynamic with an estimated ejection fraction of 73 % by biplane method of disks. The left ventricleis normal in size. The left ventricular mass is normal with concentric remodeling. Left ventricular segmental wall motion is normal. The left ventricular diastolic function is normal. Right Ventricle The right ventricle is normal in size. Right ventricular systolicfunction is normal. Left Atrium The left atrium is at the upper limits of normal in size with a leftatrial volume index of 34 ml/m2 by BP MOD. Right Atrium The right atrium is normal in size. Atrial Septum Intact interatrial septum visualized by 2D and color Doppler imaging. Aortic Valve The aortic valve is trileaflet. There is no aortic valveregurgitation. There is no aortic valve stenosis with a peak velocity of 2.1 m/s, mean gradient of 7 mmHg, and aortic valve area of 4.27 cm2. Pulmonic Valve The pulmonic valve is not well visualized, but grossly normal. There isno pulmonic valve stenosis. There is no significant pulmonic regurgitation. Mitral Valve The mitral valve is normal. There is no mitral valve stenosis. There isno clinically significant mitral valve regurgitation. Tricuspid Valve The tricuspid valve is normal. There is no tricuspid valve stenosis.There is no clinically significant tricuspid valve regurgitation. Unable toassess pulmonary pressures due to a lack of tricuspid and pulmonicregurgitation. Inferior Vena Cava The inferior vena cava is normal in size (< 2.1 cm). There is > 50%collapse of the IVC upon inspiration with an estimated right atrial pressure of 3mmHg. Pericardium/Pleural There is no pericardial effusion. Aorta The aortic root at the sinus of Valsalva is normal in size measuring 3.4cm with an index of 1.7 cm/m2. The ascending aorta is normal in sizemeasuring 3.4 cm with an index of 1.7 cm/m2. Measurements Left Ventricular Outflow Tract Name Value Normal LVOT 2D LVOT Diameter 2.5 cm LVOT Area 4.8 cm2 LVOT Doppler LVOT Peak Velocity 1.5 m/s LVOT Peak Gradient 10 mmHg LVOT Mean Velocity 94.56 cm/s LVOT Mean Gradient 4 mmHg LVOT VTI 24.6 cm LVOT VTI/AV VTI Ratio 0.9 LVOT Stroke Volume 118 ml LVOT Stroke Volume Index 59 ml/m2 35-58 LVOT CO 10.8 l/min LVOT CI 5.4 l/min/m2 Pulmonic Valve Name Value Normal RVOT Doppler RVOT Peak Velocity 1.4 m/s RVOT Peak Gradient 7 mmHg RVOT Mean Gradient 5 mmHg PV Doppler PV Peak Velocity 1.9 m/s PV Peak Gradient 15 mmHg PV Mean Gradient 8 mmHg Mitral Valve Name Value Normal MV Doppler MV Peak Gradient 5 mmHg MV Mean Gradient 2 mmHg MV DI (VTI) 0.92 MV PHT 48 ms MV Area (PHT) 4.56 cm2 4.00-5.00 MV Area (Cont Eq VTI) 5.23 cm2 MV Diastolic Function MV E Peak Velocity 1.0 m/sec MV A Peak Velocity 0.7 m/sec MV E/A 1.4 MV Decel Time (PW) 166 ms MV Annular TDI MV Septal e' Velocity 9 cm/s >=8 MV E/e' (Septal) 11 <=8 MV Lateral e' Velocity 15 cm/s >=10 MV E/e' (Lateral) 7 <=8 MV e' Average 12 cm/s MV E/e' (Average) 9 Tricuspid Valve Name Value Normal Estimated PAP/RSVP RA Pressure 3 mmHg <=5 TV Annular TDI TV Lateral Addie s' Velocity 30 cm/s 10-19 Aorta Name Value Normal Ascending Aorta Sinus of Valsalva Diameter 3.4 cm 2.8-4.0 Sinus of Valsalva Index 1.7 cm/m2 1.3-2.1 Asc Ao Diameter 3.4 cm 2.2-3.8 Asc Ao Diameter Index 1.7 cm/m2 1.1-1.9 Aortic Valve Name Value Normal AV 2D/MM AV Cusp Sep (MM) 2.2 cm AV Doppler AV Peak Velocity 2.10 m/s AV Peak Gradient 18 mmHg AV Mean Gradient 7 mmHg AV VTI 28 cm AV Area (Cont Eq VTI) 4.27 cm2 >=2.00 AV Area (Cont Eq Henok) 3.53 cm2 AV DI (VTI) 0.89 AV DI (Henok) 0.74 AV Regurgitation 2D LVOT Area 4.79 cm2 Ventricles Name Value Normal LV Dimensions 2D/MM IVS Diastolic Thickness (2D) 1.1 cm 0.6-1.0 LVID Diastole (2D) 5.1 cm 4.2-5.8 LVPW Diastolic Thickness (2D) 1.1 cm 0.6-1.0 LVID Systole (2D) 3.0 cm 2.5-4.0 LV Mass (2D Cubed) 209 g 88-224 LV Mass Index (2D Cubed) 105 g/m2 49-115 Relative Wall Thickness (2D) 0.43 <=0.42 LV Fractional Shortening/Ejection Fraction 2D/MM LV Fractional Shortening (2D) 42 % 25-43 LV EF (2D Teicholz) 72 % 52-72 LV Diastolic Volume (4C MOD) 165 ml LV EF (4C MOD) 74 % LV Diastolic Volume (2C MOD) 108 ml LV EF (2C MOD) 73 % LV Diastolic Volume (BP MOD) 137 ml 62-150 LV Diastolic Volume Index (BP MOD) 68 ml/m2 34-74 LV Systolic Volume (BP MOD) 37 ml 21-61 LV Systolic Volume Index (BP MOD) 18 ml/m2 11-31 LV EF (BP MOD) 73 % 52-72 LV Diastolic Length (4C) 8.5 cm LV Systolic Length (4C) 6.3 cm LV Stroke Volume (4C MOD) 122 ml RV Dimensions 2D/MM RV Basal Diastolic Dimension 4.9 cm 2.5-4.1 TAPSE 3.6 cm >=1.7 Atria Name Value Normal LA Dimensions LA Dimension (2D) 5.2 cm 3.0-4.1 LA Dimen Index (2D) 2.6 cm/m2 LA Volume (BP MOD) 69 ml LA Volume Index (BP MOD) 34 ml/m2 16-34 RA Dimensions RA Area (4C) 19 cm2 <=18 RA Area (4C) Index 9 cm2/m2 Report Signatures Finalized by Lisa Montemayor on 05/06/2025 09:55 AM Rex Pedro MD ECHO CUPID Final Result * (ABNORMAL) BLOOD GAS+COOX+ELECTROLYTES+METAB ARTERIAL (05/05/2025 4:24 PM CDT) Only the most recent of2 resultswithin the time period is included. pH Arterial 7.21(L) 7.35 - 7.45 pH 05/05/2025 4:33 PM [facility] pO2 Arterial 94 80 - 100 mmHg 05/05/2025 4:33 PM [facility] pCO2 Arterial 36 35 - 45 mmHg 4:33 PM [facility] HCO3 Arterial 14.4(L) 20.0 - 30.0 mmol/L 05/05/2025 4:33 PM [facility] BE Arterial -12.4(L) -2.0 - 2.0 mmol/L 05/05/2025 4:33 PM [facility] Oxyhemoglobin Arterial 95.4 % 05/05/2025 4:33 PM [facility] Dexoyhemoglobin (HHB) % 1.7 % 05/05/2025 4:33 PM [facility] Methemoglobin 1.5 0.0 - 2.0 % 05/05/2025 4:33 PM [facility] Carboxyhemoglobin 1.5 0.0 - 2.0 % 2024 4:33 PM [facility] O2 Content Arterial 10.1 Interpret within clinical context ml/dL 05/05/2025 4:33 PM [facility] Hemoglobin by COOX 7.4(L) 12.0 - 17.6 g/dL 05/05/2025 4:33 PM [facility] O2 Saturation Arterial 98 90 - 100 % 05/05/2025 4:33 PM [facility] Sodium Whole Blood 141 135 - 145 mmol/L 05/05/2025 4:33 PM [facility] Potassium Whole Blood 5.2 3.5 - 5.5 mmol/L 05/05/2025 4:33 PM [facility] Chloride WB 112(H) 78 - 107 mmol/L 05/05/2025 4:33 PM [facility] Calcium Ionized 0.92 mmol/L 4:33 PM [facility] Ionized Calcium pH Adjusted 0.85(L) 1.19 - 1.34 mmol/L 05/05/2025 4:33 PM [facility] Anion Gap (AG) Arterial 15 6 - 16 mmol/L 05/05/2025 4:33 PM [facility] Glucose WB 226(H) 70 - 99 mg/dL 05/05/2025 4:33 PM [facility] Lactic Acid Whole Blood 3.1(HH) <=2.0 mmol/L 05/05/2025 4:33 PM [facility] Blood, arterial ARTERIAL BLOOD SPECIMEN / Unknown Arterial Puncture / Unknown 05/05/2025 4:24 PM CDT 05/05/2025 4:28 PM [facility] - 05/05/2025 4:33 PM [facility] Carboxyhemoglobin Normal Concentration: Non-smokers: 0-2%; Smokers: 0-9%; Toxic: >20% Rex Pedro MD LAB - BLOOD GASES ORDERABLES F inal Result [facility] [address] [place] [address], [facility] [phone] * XR Chest 1Vw Portable (05/05/2025 3:00 PM CDT) Only the most recent of3 resultswithin the time period is included. Anatomical Region Laterality Modality Chest Digital Radiogra phy 05/05/2025 8:42 PM CDT Narrative 05/05/2025 8:43 PM CDT PROCEDURE: XR CHEST 1VW PORTABLE DATE/TIME OF EXAM: 05/05/2025 4:02 PM CLINICAL INFORMATION: None relevant/not provided if blank. Indication: G93.40: Acute encephalopathy Additional History: COMPARISON: 04/27/2025. FINDINGS: Tubes and lines: Interval placement of endotracheal tube, distal end is approximately 4.5 cm from madisyn. Lungs are moderately expanded. No acute consolidations or air space opacities are seen. No pleural effusion or pneumothorax seen. No other newly developed findings in the chest. > Interpreting Provider: Krystle Cervantes MD on 05/05/2025 8:43 PM Procedure Note Krystle Cervantes MD - 05/05/2025 PROCEDURE: XR CHEST 1VW PORTABLE DATE/TIME OF EXAM: 05/05/2025 4:02 PM CLINICAL INFORMATION: None relevant/not provided if blank. Indication: G93.40: Acute encephalopathy Additional History: COMPARISON: 04/27/2025. FINDINGS: Tubes and lines: Interval placement of endotracheal tube, distal end is approximately 4.5 cm from madisyn. Lungs are moderately expanded. No acute consolidations or air space opacities are seen. No pleural effusion or pneumothorax seen. No other newly developed findings in the chest. > Interpreting Provider: Krystle Cervantes MD on 58:43 PM us Rex Pedro MD DIAGNOSTIC IMAGING ORDERABLES Final Result * EGD (05/05/2025 2:51 PM CDT) Report Endoscopy POC Endoscopy Department Report __ _ Patient Name: Brodie Ochoa Procedure Date: 05/05/2025 2:51 PM Date of : 1975 Classification: Inpatient Gender: Male Ethnicity: Not or Race: White __ _ Providers: Sherrie Gay DO, Nakia Alvarez MD (Fellow) Referring MD: Procedure: Upper GI endoscopy Indications: Hematemesis Medications: Propofol per ICU Description of Procedure: Pre-Anesthesia Assessment: - Prior to the procedure, a History and Physical was performed, and patient medications and allergies were reviewed. The patient's tolerance of previous anesthesia was also reviewed. The risks and benefits of the procedure and the sedation options and risks were discussed with the patient. All questions were answered, and informed consent was obtained. Prior Anticoagulants: The patient has taken no anticoagulant or antiplatelet agents. ASA Grade Assessment: IV - A patient with severe systemic disease that is a constant threat to life. After reviewing the risks and benefits, the patient was deemed in satisfactory condition to undergo the procedure. After obtaining informed consent, the endoscope was passed under direct vision. Throughout the procedure, the patient's blood pressure, pulse, and oxygen saturations were monitored continuously. The Endoscope was introduced through the mouth, and advanced to the second part of duodenum. The upper GI endoscopy was technically difficult and complex due to an endoscope malfunction. Successful completion of the procedure was aided by withdrawing the scope and replacing with the therapeutic endoscope. The patient tolerated the procedure well. Findings: Five columns of large (> 5 mm) varices actively bleeding were found in the mid esophagus, in the distal esophagus and at the gastroesophageal junction. No red marko signs were present. Scarring from prior treatment was visible. Five bands were successfully placed with incomplete eradication of varices at 34 cm. Bleeding had stopped at the end of the procedure. For hemostasis, one hemostatic clip was successfully placed in the middle third of the esophagus (31 cm). There was no bleeding at the end of the procedure. Clotted blood was found in the gastric fundus. not able to access for gastric varices given blood in stomach. The duodenal bulb and second portion of the duodenum were normal. Estimated Blood Loss: Estimated blood loss: none. Complications: No immediate complications. Impression: - Large (> 5 mm) esophageal varices actively bleeding. Incompletely eradicated. Banded. - Red blood and large clots in the gastric fundus. - Normal duodenal bulb and second portion of the duodenum. - One hemostatic clip was successfully placed in the middle third of the esophagus on top of a bleeding varix with a white nipple sign. - No specimens collected. Recommendation: - Return patient to ICU for ongoing care. - NPO. Avoid placing ng tube or og tube until cleared by gi - Use Protonix (pantoprazole) 40 mg IV BID today. - Continue ocreotide and ceftriaxone. - IR consulted - Low threshhold to repeat EGD with EVL if persistent hematemesis Attending Participation: I was present and participated during the entire procedure, including non-argueta portions. Procedure Code(s): --- Professional --- 05280, Esophagogastroduode noscopy, flexible, transoral; with band ligation of esophageal/gastric varices 80289, 59, Esophagogastroduode noscopy, flexible, transoral; with control of bleeding, any method Diagnosis Code(s): --- Professional --- K92.0, Hematemesis CPT copyright 2021 [employer]. All rights reserved. The codes documented in this report are preliminary and upon hematologist oncologist review may be revised to meet current compliance requirements. Sherrie Gay DO 05/05/2025 4:56:34 PM This report has been signed electronically. Note Initiated On: 05/05/2025 2:51 PM Number of Addenda: [id number] [place] [address] [facility] 05/05/2025 2:51 PM CDT Rex Pedro MD GI PROCEDURE ORDERABLES Edited Result - Final [facility] * PREPARE CRYOPRECIPITATE UNIT (S), 5 Units (05/05/2025 12:43 PM CDT) Unit Description Thawed Cryp Clsd [facility] Unit ABO B [facility] Unit Rh POS [facility] Product Number E3591 [facility] Unit Donor # [id number] [facility] Unit Status transfused [facility] Product Code [id number] [facility] Blood Type Barcode 7300 [facility] Expiration Date [id number] [facility] Blood Bank BLOOD SPECIMEN / Unknown 05/05/2025 12:43 PM CDT 05/05/2025 12:52 PM CDT Rex Pedro MD LAB - BLOOD BANK ORDERABLES Fi nal Result Performing Organization Address [facility]/ZIP Co de Phone Number [facility] [address] [place] [address], [place] [phone] * PREPARE PLATELET PHERESIS UNIT(S), 1 Units (05/05/2025 12:43 PM CDT) Pathologist [facility] Unit Description LR PLT Phere B7 [facility] Unit ABO O [facility] Unit Rh POS [facility] Product Number P26 [facility] Unit Donor # [id number] [facility] Unit Status transfused [facility] Product Code [id number] [facility] Blood Type Barcode 5100 [facility] Expiration Date [id number] [facility] Blood Bank BLOOD SPECIMEN / Unknown 05/05/2025 12:43 PM CDT 05/05/2025 12:52 PM CDT Rex Pedro MD LAB - BLOOD BANK ORDERABLES Fi nal Result Performing Organization Address City/[facility]/ZIP Co de Phone Number [facility] [address] [place] [address] [phone] * PREPARE FFP UNIT(S), 6 Units (05/05/2025 12:43 PM CDT) Unit Description Thawed Plasma 5D [facility] Unit ABO AB [facility] Unit Rh NEG [facility] Product Number E5548 [facility] Unit Donor # [id number] [facility] Unit Status transfused [facility] Product Code [id number] [facility] Blood Type Barcode 2800 [facility] Expiration Date [id number] [facility] Unit Description Thawed Plasma 5D [facility] Unit ABO AB [facility] Unit POS [facility] Product [facility] E2684 [facility] Unit Donor # [id number] [facility] Unit Status transfused [facility] OD BANK LAB Product Code [id number] [facility] Blood Type Barcode 8400 [facility] Expiration Date [id number] [facility] Unit Description Thawed Plasma 5D [facility] Unit ABO AB [facility] Unit POS [facility] Product Number E2684 [facility] Unit Donor # [id number] [facility] Unit Status released [facility] Product Code [id number] [facility] Blood Type Barcode 8400 [facility] Expiration Date [id number] [facility] Unit Description Thawed Plasma 5D [facility] Unit ABO AB [facility] B[facility] Unit POS [facility] Product Number E5548 [facility] Unit Donor # [id number] [facility] Unit Status released [facility] Product Code [id number] [facility] Blood Type Barcode 8400 [facility] Expiration Date [id number] [facility] Unit Description Thawed Plasma 5D [facility] Unit ABO AB [facility] B[facility] Unit POS [facility] Product Number E2684 [facility] Unit Donor # [id number] [facility] Unit Status transfused [facility] Product Code [id number] [facility] Blood Type Barcode 8400 [facility] Expiration Date S [facility]LOOD [facility] Unit Description Thawed Plasma 5D [facility] Unit ABO AB [facility] B[facility] Unit Rh POS [facility] Product Number E2684 [facility] Unit Donor # [id number] [facility] Unit Status transfused [facility] Product Code [id number] [facility] Blood Type Barcode 8400 [facility] Expiration Date [id number] S [facility]LOOD [facility] LAB Blood Bank BLOOD SPECIMEN / Unknown 05/05/2025 12:43 PM CDT 05/05/2025 12:52 PM CDT Rex Pedro MD LAB - BLOOD BANK ORDERABLES Fi nal Result [facility] [address] [place] [address], [facility] [phone] * XR Panorex (05/01/2025 5:00 PM CDT) Anatomical Region Laterality Modality Head Radiographic Autumn ging 05/02/2025 8:16 AM CDT Narrative 05/02/2025 10:35 AM CDT PROCEDURE: XR PANOREX, DATE/TIME OF EXAM: 05/01/2025 5:00 PM, LOCATION [facility] INDICATION: K72.90: Decompensated hepatic cirrhosis (HCC) K74.60: Decompensated hepatic cirrhosis (HCC) ADDITIONAL CLINICAL INFORMATION: Ordering Provider Reason For Exam: assess for dental abscess Technologist Note: Additional: COMPARISON: None. FINDINGS/IMPRESSION: Multiple dental restorations are identified, and numerous maxillary and mandibular teeth are absent. Multiple large dental caries are present. There is a large dental caries and periapical lucency involving the left mandibular molar and periapical radiolucency of the right second mandibular incisive tooth, suggestive of periapical abscess. No acute mandibular fracture is identified. Both temporomandibular joints are intact. Report dictated by Marcial Velazquez MD, (resident care manager). Ruben Saldana MD have personally reviewed and interpreted this examination/study. > Interpreting Provider: Ruben Luis MD on 05/02/2025 10:35 AM Procedure Note Ruben Luis MD - 05/02/2025 PROCEDURE: XR PANOREX, DATE/TIME OF EXAM: 05/01/2025 5:00 PM, [facility] INDICATION: K72.90: Decompensated hepatic cirrhosis (HCC) K74.60: Decompensated hepatic cirrhosis (HCC) ADDITIONAL CLINICAL INFORMATION: Ordering Provider Reason For Exam: assess for dental abscess Technologist Note: Additional: COMPARISON: None. FINDINGS/IMPRESSION: Multiple dental restorations are identified, and numerous maxillary and mandibular teeth are absent. Multiple large dental caries are present. There is a large dental caries and periapical lucency involving the left mandibular molar and periapical radiolucency of the right secondmandibular incisive tooth, suggestive of periapical abscess. No acute mandibular fracture is identified. Both temporomandibular joints are intact. Report dictated by Marcial Velazquez MD, MD (resident care manager). IRuben MD have personally reviewed and interpreted this examination/study. > Interpreting Provider: Ruben Luis MD on 05/02/2025 10:35 AM Anant Doherty MD DIAGNOSTIC IMAGING ORDERABLES Fi nal Result * CT Abdomen Pelvis W Contrast (05/01/2025 3:06 PM CDT) Only the most recent of2 resultswithin the time period is included. Anatomical Region Laterality Modality Abdomen, Pelvis Computed Tomogra phy 05/01/2025 3:53 PM CDT Impressions 05/01/2025 10:07 PM CDT Impression: 1.Compared to previous CT scan, there is less conspicuous area of narrowing within the sigmoid colon corresponding to circumferential thickening of haustra in this area (series 3, image 126; series 4, image 101; series 5 image 96-98) without clear mass nor extravasation of contrast. 2.There is mild improvement in colonic dilatation but slight increase in dilated small bowel loops. No clear transition point is seen favoring slow transit/ileus. 3.Stable dilation of the proximal appendix without obvious signs of appendicitis; recommend correlation with physical exam. 4.Hepatic cirrhosis with sequela of portal hypertension including small volume ascites, hepatomegaly, and extensive varices as well as a redemonstrated observation in segment 2 corresponding to known LR 5 lesion. 5.Cholelithiasis without cholecystitis. 6.Stable periaortic lymphadenopathy. This report was dictated by Cipriano Etienne M.D. (DR/IR Resident). I, Krystle Cervantes MD have personally reviewed and interpreted this examination/study. > Interpreting Provider: Krystle Cervantes MD on 05/01/2025 10:07 PM Narrative 05/01/2025 10:07 PM CDT PROCEDURE: CT ABDOMEN PELVIS W CONTRAST, DATE/TIME OF EXAM: 05/01/2025 3:07 PM, LOCATION [facility] INDICATION: K56.609: Intestinal obstruction, unspecified cause, unspecified whether partial or complete (HCC) ADDITIONAL CLINICAL INFORMATION: Ordering Provider Reason For Exam: further evaluation of focal narrowing at sigmoid colon COMPARISON: CT abdomen pelvis with contrast 04/27/2025; CT multiphase liver 04/22/2025.. TECHNIQUE: CT of the abdomen and pelvis was performed following the uneventful administration of 100 mL of Isovue 370 intravenous contrast via IV and per rectum according to standard protocol. Findings: The study is mildly degraded due to motion artifact and streak artifact from patient's overlying extremities. Lower Chest: Aside from a right middle lobe granuloma, the lung bases are clear. No pleural effusion. No pericardial effusion. Liver: Redemonstrated nodular and shrunken appearance of the liver consistent with known hepatic cirrhosis. Redemonstrated a vague peripherally enhancing centrally hypodense lesion within segment 2 representing the previously identified LR 5 observation on liver multiphase CT from 04/22/2025. Significantly dilated varices shunt with the right renal vein is noted. Gallbladder and Bile Ducts: Redemonstrated multiple nonfloating gallstones. The gallbladder wall does not appear thickened. No intrahepatic nor extrahepatic biliary ductal dilation. Spleen: The spleen is enlarged measuring up to 16 cm craniocaudally, with slight difference in measurement likely related to either technique. Multiple splenic granulomas are present. Pancreas: Normal. Adrenals: Normal. Kidneys: Symmetric enhancement with no evidence of nephrolithiasis or hydronephrosis. Multiple left-sided cysts are present. Gastrointestinal: Rectal contrast courses throughout the colon to the level of the cecum. The previously described focal area of narrowing in the sigmoid colon is less conspicuous (series 3, image 126; series 4 image 101; series 5 images 96 through 98) with prominent thick circumferential thickening of the haustra in this area but no identifiable mass or filling defect otherwise. While there is mild improvement in distal ileal dilation, there is a slight increase in predominance of the dilated gas and fluid-filled loops of small bowel without clear transition point, favoring ileus versus slow transit. The appendix folds on itself and appears dilated proximally but does not exhibit adjacent fat stranding, fluid, nor appendicolith. Mesentery/Peritoneum/Retroperitoneum: No free air. Slight increase in small volume ascites. Redemonstrated periaortic lymphadenopathy (for instance a 1.0 cm lymph node seen on series 3, image 73). There is redemonstrated adjacent fat stranding in this area which may be reactive. Bladder: Normal. Reproductive Organs: The prostate is normal. Abdominal Vasculature: Atherosclerotic calcification of the aorta and its branch vessels. Redemonstration of multiple esophageal varices, gastric varices, and a large tortuous, dilated SMV to left renal vein shunt is present. Bones: Bone windows demonstrate no suspicious lytic or blastic lesions. The visible osseous structures are intact. Degenerative changes are seen in the spine. Advanced degenerative changes are seen within the right glenohumeral joint. Soft tissues: Redemonstrated umbilical hernia containing soft tissue density which may represent ascites and/or edematous fat. Procedure Note Krystle Cervantes MD - 05/01/2025 PROCEDURE: CT ABDOMEN PELVIS W CONTRAST, DATE/TIME OF EXAM: 05/01/2025 3:07 PM, LOCATION [facility] INDICATION: K56.609: Intestinal obstruction, unspecified cause, unspecified whether partial or complete (HCC) ADDITIONAL CLINICAL INFORMATION: Ordering Provider Reason For Exam: further evaluation of focalnarrowing at sigmoid colon COMPARISON: CT abdomen pelvis with contrast 04/27/2025; CT multiphase liver04/22/2025.. TECHNIQUE: CT of the abdomen and pelvis was performed following the uneventful administration of 100 mL of Isovue 370 intravenous contrastvia IV and per rectum according to standard protocol. Findings: The study is mildly degraded due to motion artifact and streak artifact from patient's overlying extremities. Lower Chest: Aside from a right middle lobe granuloma, the lung bases are clear. No pleural effusion. No pericardial effusion. Liver: Redemonstrated nodular and shrunken appearance of the liver consistentwith known hepatic cirrhosis. Redemonstrated a vague peripherally enhancing centrally hypodense lesion within segment 2 representing the previously identified LR 5 observation on liver multiphase CT from 04/22/2025. Significantly dilated varices shunt with the right renal vein is noted. Gallbladder and Bile Ducts: Redemonstrated multiple nonfloating gallstones. The gallbladder walldoes not appear thickened. No intrahepatic nor extrahepatic biliary ductal dilation. Spleen: The spleen is enlarged measuring up to 16 cm craniocaudally, with slight difference in measurement likely related to either technique. Multiple splenic granulomas are present. Pancreas: Normal. Adrenals: Normal. Kidneys: Symmetric enhancement with no evidence of nephrolithiasis or hydronephrosis. Multiple left-sided cysts are present. Gastrointestinal: Rectal contrast courses throughout the colon to the level of the cecum.The previously described focal area of narrowing in the sigmoid colon isless conspicuous (series 3, image 126; series 4 image 101; series 5 images 96 through 98) with prominent thick circumferential thickening of thehaustra in this area but no identifiable mass or filling defect otherwise. While there is mild improvement in distal ileal dilation, there is a slight increase in predominance of the dilated gas and fluid-filled loops ofsmall bowel without clear transition point, favoring ileus versus slowtransit. The appendix folds on itself and appears dilated proximally but does not exhibit adjacent fat stranding, fluid, nor appendicolith. Mesentery/Peritoneum/Retroperitoneum: No free air. Slight increase in small volume ascites. Redemonstrated periaortic lymphadenopathy (for instance a 1.0 cm lymph node seen onseries 3, image 73). There is redemonstrated adjacent fat stranding in thisarea which may be reactive. Bladder: Normal. Reproductive Organs: The prostate is normal. Abdominal Vasculature: Atherosclerotic calcification of the aorta and its branch vessels. Redemonstration of multiple esophageal varices, gastric varices, and a large tortuous, dilated SMV to left renal vein shunt is present. Bones: Bone windows demonstrate no suspicious lytic or blastic lesions. The visible osseous structures are intact. Degenerative changes are seen inthe spine. Advanced degenerative changes are seen within the rightglenohumeral joint. Soft tissues: Redemonstrated umbilical hernia containing soft tissue density which may represent ascites and/or edematous fat. Impression: 1.Compared to previous CT scan, there is less conspicuous area ofnarrowing within the sigmoid colon corresponding to circumferential thickening of haustra in this area (series 3, image 126; series 4, image 101; series 5 image 96-98) without clear mass nor extravasation of contrast. 2.There is mild improvement in colonic dilatation but slight increase in dilated small bowel loops. No clear transition point is seen favoringslow transit/ileus. 3.Stable dilation of the proximal appendix without obvious signs of appendicitis; recommend correlation with physical exam. 4.Hepatic cirrhosis with sequela of portal hypertension including small volume ascites, hepatomegaly, and extensive varices as well as a redemonstrated observation in segment 2 corresponding to known LR 5lesion. 5.Cholelithiasis without cholecystitis. 6.Stable periaortic lymphadenopathy. This report was dictated by Cipriano Etienne M.D. (DR/IR Resident). I, Krystle Cervantes MD have personally reviewed and interpreted this examination/study. > Interpreting Provider: Krystle Cervantes MD on 510:07 PM -Anant Doherty MD CT ORDERABLES Final Result * Endoscopy, Proctosigmoid (04/30/2025 2:05 PM CDT) Report Endoscopy POC Endoscopy Department Report _ Patient Name: Brodie Ochoa Procedure Date: 04/30/2025 2:05 PM Date of : 1975 Classification: Inpatient Gender: Male Ethnicity: Not or Race: White _ Providers: Yasmeen Canales MD, Martell Pittman (Fellow) Referring MD: inpatient team Procedure: Flexible Sigmoidoscopy Indications: Abnormal CT of the GI tract Medications: Monitored Anesthesia Care Description of Procedure: Pre-Anesthesia Assessment: - Prior to the procedure, a History and Physical was performed, and patient medications and allergies were reviewed. The patient's tolerance of previous anesthesia was also reviewed. The risks and benefits of the procedure and the sedation options and risks were discussed with the patient. All questions were answered, and informed consent was obtained. Prior Anticoagulants: The patient has taken no anticoagulant or antiplatelet agents. ASA Grade Assessment: III - A patient with severe systemic disease. After reviewing the risks and benefits, the patient was deemed in satisfactory condition to undergo the procedure. After obtaining informed consent, the endoscope was passed under direct vision. Throughout the procedure, the patient's blood pressure, pulse, and oxygen saturations were monitored continuously. The PCF-[id number] was introduced through the anus and advanced to the sigmoid colon. The flexible sigmoidoscopy was accomplished without difficulty. The patient tolerated the procedure well. The quality of the bowel preparation was poor. Findings: A large amount of solid stool was found in the rectum and in the sigmoid colon, precluding visualization. Narrowing noted in the sigmoid colon at around 30 cm from the anal verge with significant resistance to scope (pediatric colonoscope) passage. A small guidewire was able to be advanced beyond the area of narrowing. Efforts were made to pass the scope using the guidewire but unsuccessful. The procedure was terminated to avoid mucosal injury or complications especially in the setting of poor bowel preparation. Estimated Blood Loss: Estimated blood loss: none. Complications: No immediate complications. Impression: - Preparation of the colon was poor. - Stool in the rectum and in the sigmoid colon. - Area of narrowing preventing scope passage in sigmoid colon. - No specimens collected. Recommendation: - [facility] care. - Consider CT with oral or rectal contrast if further evaluation of sigmoid narrowing is clinically needed - The signs and symptoms of potential delayed complications were discussed with the patient/caregiver s. - Remainder per inpatient GI team Attending Participation: I was present and participated during the entire procedure, including non-argueta portions. Procedure Code(s): --- Professional --- 37077, Sigmoidoscopy, flexible; diagnostic, including collection of specimen(s) by brushing or washing, when performed (separate procedure) Diagnosis Code(s): --- Professional --- R93.3, Abnormal findings on diagnostic imaging of other parts of digestive tract CPT copyright 2021 [employer]. All rights reserved. The codes documented in this report are preliminary and upon hematologist oncologist review may be revised to meet current compliance requirements. Yasmeen Canales MD 04/30/2025 3:10:46 PM This report has been signed electronically. Note Initiated On: 04/30/2025 2:05 PM Number of Addenda: 0 [facility] [address] [place], [place] [id number] [place] [address] 04/30/2025 2:05 PM CDT Yasmeen Canales MD GI PROCEDURE ORDERABLES Edited Result - Final Performing Organization Address [facility] Co de Phone Number [facility] * PTT [facility] (04/28/2025 7:04 AM CDT) APTT 35.7 23.0 - 38.4 Seconds 04/28/2025 7:35 AM CDT [facility] Comment:Suggested therapeuti c range for full dose I.V. unfractionated heparin therapy for venous thromboembolism is 71 to 109 seconds. Blood BLOOD SPECIMEN / Unknown Lab Venipuncture / Unknown 04/28/2025 7:04 AM CDT 04/28/2025 7:13 AM CDT Cindy Doherty MD LAB - COAGULATION ORDERABLES Fin al Result Performing Organization Address [facility] Co de Phone Number [facility] [address] [place] [address], [place] [phone] * FIBRINOGEN ACTIVITY (04/28/2025 7:04 AM CDT) Fibrinogen Clauss 258 200 - 400 mg/dL 04/28/2025 7:35 AM CDT [facility] Blood BLOOD SPECIMEN / Unknown Lab Venipuncture / Unknown 04/28/2025 7:04 AM CDT 04/28/2025 7:13 AM CDT Cindy Doherty MD LAB - COAGULATION ORDERABLES Fin al Result [facility] [address] [place] [address], [facility] [phone] * BLASTOMYCES ANTIGEN QUANT BY EIA URINE (04/27/2025 7:11 PM CDT) Blastomyces Antigen Urine Not Detected 05/01/2025 9:43 PM CDT [facility] ([facility]) Blastomyces Dermatitidis EIA Interp Not Detected Not Detected 05/01/2025 9:43 PM CDT [facility] ([facility]) Comment: INTERPRETIVE INFORMATION:Blastomyces Ag Quant by NICOLE, Urine The quantitative range of this assay is 1.25-200 U/mL. Antigen concentrations less than 1.25 U/mL or greater than 200 U/mL fall outside the linear range of the assay and cannot be accurately quantified. This EIA test should be used in conjunction with other diagnostic procedures, including microbiological culture, histological examination of biopsy samples, serology and/or radiographic evidence, to aid in the diagnosis of blastomycosis. Cross-reactivity with other endemic mycoses (Histoplasma and Coccidioides) may occur. Positive test results should be correlated with other clinical findings and relevant exposure history. This test was developed and its performance characteristics determined by [facility]. It has not been cleared or approved by the [place] Food and Drug Administration. This test was performed in a CLIA certified laboratory and is intended for clinical purposes. Performed By: [facility] [address] [place] [id number] Medical Practice Manager: Salomón Monroe MD, PhD CLIA Number: [id number] Urine URINE SPECIMEN OBTAINED BY CLEAN CATCH PROCEDURE / Unknown Collection / Unknown 04/27/2025 7:11 PM CDT 04/27/2025 7:19 PM CDT Cindy Doherty MD LAB - MICROBIOLOGY ORDERABLES Fi nal Result [facility] ([facility]) [address] [place] [address], [facility] * (ABNORMAL) URINALYSIS REFLEX MICROSCOPIC REFLEX CULTURE (04/27/2025 7:11 PM CDT) Only the most recent of2 resultswithin the time period is included. Color UA Yellow Yellow, Straw 04/27/2025 7:49 PM [facility] Clarity UA Clear Clear 04/27/2025 7:49 PM [facility] Glucose UA Trace(A) Normal 04/27/2025 7:49 PM [facility] Bilirubin UA 1+(A) Negative 04/27/2025 7:49 PM [facility] Ketone UA Negative Negative 04/27/2025 7:49 PM [facility] Specific [place]tons UA >1.050(H) 1.005 - 1.030 04/27/2025 7:49 PM [facility] Blood UA Negative Negative 04/27/2025 7:49 PM [facility] pH UA 6.0 5.0 - 8.0 04/27/2025 7:49 PM [facility] Protein UA Trace(A) Negative 04/27/2025 7:49 PM [facility] Urobilinogen UA 8.0(A) Normal mg/dL 04/27/2025 7:49 PM [facility] Nitrite UA Negative Negative 04/27/2025 7:49 PM [facility] Leukocyte Esterase UA Negative Negative 04/27/2025 7:49 PM [facility] Reflex Status Culture not indicated 04/27/2025 7:49 PM [facility] Urine Microscopy Urine microscopy not indicated 04/27/2025 7:49 PM [facility] Urine URINE SPECIMEN OBTAINED BY CLEAN CATCH PROCEDURE / Unknown Collection / Unknown 04/27/2025 7:11 PM CDT 04/27/2025 7:19 PM CDT Cindy Doherty MD LAB - URINALYSIS ORDERABLES Mary l Result [facility] [address] [place] [address], [place] [phone] * CULTURE BLOOD (04/26/2025 3:49 PM CDT) Only the most recent of4 resultswithin the time period is included. Pathologist [facility] Culture No growth day 5 VASILIY 05/01/2025 8:30 PM CDT [facility] Blood PERIPHERAL BLOOD / Unknown Lab Venipuncture / Unknown 04/26/2025 3:49 PM CDT 04/26/2025 3:53 PM CDT Cindy Doherty MD LAB - MICROBIOLOGY ORDERABLES Fi nal Result Performing Organization Address [facility] Co de Phone Number [facility] [address] [place] [address], [facility] [phone] * CRYPTOCOCCUS ANTIGEN BLOOD (04/26/2025 3:47 PM CDT) Pathologist [facility] Cryptococcus Antigen Negative Negative 04/26/2025 8:16 PM CDT [facility] Blood BLOOD SPECIMEN / Unknown Lab Venipuncture / Unknown 04/26/2025 3:47 PM CDT 04/26/2025 3:52 PM CDT Cindy Doherty MD LAB - SEROLOGY ORDERABLES Final Result Performing Organization Address City/[facility]/ZIP Co de Phone Number [facility] [address] [place] [address], [facility] [phone] * HISTOPLASMA ANTIGEN QUANT ADDL SRCS (04/26/2025 3:46 PM CDT) Other BLOOD SPECIMEN / Unknown Collection / Unknown 04/26/2025 3:46 PM CDT 04/26/2025 3:56 PM CDT us Cindy Doherty MD LAB - CHEMISTRY ORDERABLES Final Result [facility]) [address] [place], [place] [address] * GQET-S-QPKVYS (1,3) (FUNGITELL) (04/26/2025 3:46 PM CDT) Pathologist [facility] Jrhn-s-Ploynm 51 pg/mL 04/28/2025 1:48 PM CDT [facility] ([facility]) Interpretation Afwz-r-Skkgzz Negative Negative 04/28/2025 1:48 PM CDT [facility] ([facility]) Comment: INTERPRETIVE INFORMATION: (1,3)-xtpj-K-nqkkye (Fungitell) Less than 31 pg/mL ................... Negative 31-59 pg/mL .......................... Negative 60-79 pg/mL .......................... Indeterminate Greater than or equal to 80 pg/mL .... Positive The Fungitell test is indicated for presumptive diagnosis of fungal infection and should be used in conjunction with other diagnostic procedures. This test does not detect certain fungal species such as Cryptococcus, which produce very low levels of (1,3)-cbkz-O-zljhlc. This test will not detect the zygomycetes, such as Absidia, Mucor, and Rhizopus, which are not known to produce (1,3)-ggod-L-czzbyb. In addition, the yeast phase of Blastomyces dermatitidis produces little (1,3)-alan-B-gecqic and may not be detected by the assay. Performed By: [facility] [address] [place] [id number] Medical Practice Manager: Salomón Monroe MD, PhD CLIA Number: [id number] Blood BLOOD SPECIMEN / Unknown Lab Venipuncture / Unknown 04/26/2025 3:46 PM CDT 04/26/2025 3:52 PM CDT Cindy Doherty MD LAB - CHEMISTRY ORDERABLES Final Result [facility] [address] [address] [place] [address], [facility] * BLASTOMYCES DERMATITIDIS AG QNT NON URINE (04/26/2025 3:46 PM CDT) Blastomyces dermatitidis Antigen None Detected ng/mL 04/30/2025 8:39 PM CDT [facility] [employer] [facility] [address]) Comment: Reference Interval: None Detected Reportable Range: Results reported as ng/mL in 0.31 - 20.00 ng/mL range Results above 20.00 ng/mL are reported as 'Positive, Above the Limit of Quantification' When tested in cultures of 100,000 - 1,000,000 organisms/mL, cross-reactions occurred with Histoplasma spp., Coccidioides spp., Paracoccidioides brasiliensis, Talaromyces marneffei, Aspergillus nidulans, and Rachael tropicalis. tropicalis. This test was developed and its performance characteristics determined by [facility]. It has not been cleared or approved by the FDA; however, FDA clearance or approval is not currently required for clinical use. The results are not intended to be used as the sole means for clinical diagnosis or patient management decisions. This document contains confidential privileged information. The recipient of the information is prohibited from disclosing the contents to another libertarian without authorization. If you are not the intended recipient, you are hereby notified that the disclosure of the contents is strictly prohibited. Please notify [email or web address] immediately if you received this information in error. Medical Practice Manager: George Jimenez MD [facility] [place] [address] ALQ = Above the limit of Quantification Performed At: [email or web address] [facility] [place] [address] Service Center Supervisor: George SUTTONIA Number: [id number] Blastomyces dermatitidis Antigen Source Serum 04/30/2025 8:39 PM CDT [facility]) Microbiology BLOOD SPECIMEN / Unknown Collection / Unknown 04/26/2025 3:46 PM CDT 04/26/2025 3:52 PM CDT us Cindy Doherty MD LAB - MICROBIOLOGY ORDERABLES Fi nal Result Performing Organization Address [facility] de Phone Number [facility] [employer] [facility]) [address] * ASPERGILLUS GALACTOMANNAN ANTIGEN BLOOD (04/26/2025 3:46 PM CDT) Aspergillus galactomannan Antigen Negative Negative 04/28/2025 12:00 AM CDT [facility] [employer] ([facility]) Comment: INTERPRETIVE INFORMATION: Aspergillus Galactomannan Antigen by EIA Negative results do not exclude the diagnosis of invasive aspergillosis. A single positive test result (index equal to or greater than 0.5) should be clinically correlated by testing a separate serum specimen because many agents (e.g. foods, antibiotics) may cross-react with the test. If invasive aspergillosis is suspected in high-risk patients, serial sampling is recommended. Performed By: [facility] [address] [place] [address] Medical Practice Manager: Salomón Monroe MD, PhD CLIA Number: [id number] Aspergillus galactomannan Index 0.21 04/28/2025 12:00 AM CDT [facility] [employer] [place] [facility]) Blood BLOOD SPECIMEN / Unknown Lab Venipuncture / Unknown 04/26/2025 3:46 PM CDT 04/26/2025 3:52 PM CDT us Cindy Doherty MD LAB - SEROLOGY ORDERABLES Final Result Performing Organization Address [facility] de Phone Number [facility] [employer] [place] [facility]) [address] * CT Chest Abdomen Pelvis W Cont (04/24/2025 8:54 AM CDT) Anatomical Region Laterality Modality Chest, Abdomen, Pelvis Computed Tomography 04/24/2025 2:30 PM CDT Impressions 04/24/2025 9:18 PM CDT Impression: 1.A 1.4 cm soft tissue nodule measuring simple fluid density within the upper chest wall, possibly representing an epidermal inclusion cyst. Recommend clinical correlation. 2.Otherwise, no evidence of metastatic disease in the chest. 3.Enlarged retroperitoneal lymph nodes measuring up to 1.3 cm are indeterminate. 4.Hepatic cirrhosis with sequelae of portal hypertension including small volume ascites, splenomegaly, and periesophageal varices. 5.A hypodense lesion within hepatic segment 2 corresponds with the previously identified LR-5 observation. 6.Cholelithiasis. > Dictated by Chandler Chavez MD (resident care manager). I, Arnold Henderson MD have personally reviewed and interpreted this examination/study. > Interpreting Provider: Arnold Henderson MD on 04/24/2025 9:18 PM Narrative 04/24/2025 9:18 PM CDT PROCEDURE: CT CHEST ABDOMEN PELVIS W CONT, DATE/TIME OF EXAM: 04/24/2025 8:54 AM, LOCATION [facility] INDICATION: C22.0: Hepatocellular carcinoma (HCC) ADDITIONAL CLINICAL INFORMATION: Ordering Provider Reason For Exam: evaluation for metastatic disease in setting of new diagnosis of HCC Technologist Note: Additional: COMPARISON: CT liver triple phase 04/22/2025. TECHNIQUE: CT of the chest, abdomen, and pelvis was performed after the uneventful administration of 100 mL of Isovue 370 intravenous contrast according to standard protocol. Findings: Chest: Lower Neck and Axillae: Normal. Lungs: Ill-defined groundglass and tree-in-bud nodules along and a in the right hilum is likely postinfectious. (Series 4, Image 46) No suspicious pulmonary nodules are identified. No pleural fluid or pneumothorax is present. Heart and Pericardium: The cardiac chambers are normal in size. No pericardial fluid or thickening is present. Mediastinum and [facility]cy: No mediastinal hemorrhage is present. No enlarged lymph nodes are present. Calcified right hilar lymph nodes. Thoracic Vasculature: The aorta and its branch vessels are mildly atherosclerotic. Abdomen/pelvis: Liver: The liver has a nodular surface, consistent with hepatic cirrhosis. A hypodense lesion within segment 2 corresponds with the previously identified LR 5 observation. Gallbladder and Bile Ducts: Multiple gallstones are seen. No wall thickening. Spleen: Enlarged measuring 17.8 cm craniocaudally. Pancreas: Normal. Adrenals: Normal. Kidneys: Symmetric enhancement with no evidence of nephrolithiasis or hydronephrosis. Multiple left-sided cysts are present. Gastrointestinal: There is seen within the distal esophagus. The small large bowel are nondilated. The appendix is not seen; however, no inflammatory changes are seen in the right lower quadrant. Mesentery/Peritoneum/Retroperitoneum: No free intraperitoneal air. Small-volume ascites. Demonstrated prominent retroperitoneal lymph nodes. For reference, a periaortic lymph node measures 1.3 cm in short axis (series 3 image 130), unchanged. Bladder: Normal. Reproductive Organs: The prostate is normal. Abdominal Vasculature: Atherosclerotic calcification of the aorta and its branch vessels. Extensive upper abdominal varices are redemonstrated. Bones: Bone windows demonstrate no suspicious lytic or blastic lesions. The visible osseous structures are intact. Degenerative changes are seen in the spine. Advanced degenerative changes are seen within the right glenohumeral joint. Soft tissues: A 1.4 cm soft tissue nodule measuring simple fluid density is seen within the upper chest wall. Bilateral gynecomastia. Redemonstrated umbilical hernia containing soft tissue density which may represent ascites and/or infarcted fat. Procedure Note Arnold Henderson MD - 04/24/2025 PROCEDURE: CT CHEST ABDOMEN PELVIS W CONT, DATE/TIME OF EXAM:04/24/2025 8:54 AM, LOCATION [facility] INDICATION: C22.0: Hepatocellular carcinoma (HCC) ADDITIONAL CLINICAL INFORMATION: Ordering Provider Reason For Exam: evaluation for metastatic disease in setting of new diagnosis of HCC Technologist Note: Additional: COMPARISON: CT liver triple phase 04/22/2025. TECHNIQUE: CT of the chest, abdomen, and pelvis was performed after the uneventful administration of 100 mL of Isovue 370 intravenous contrast according to standard protocol. Findings: Chest: Lower Neck and Axillae: Normal. Lungs: Ill-defined groundglass and tree-in-bud nodules along and a in the right hilum is likely postinfectious. (Series 4, Image 46) No suspicious pulmonary nodules are identified. No pleural fluid or pneumothorax is present. Heart and Pericardium: The cardiac chambers are normal in size. No pericardial fluid orthickening is present. Mediastinum and Mercy: No mediastinal hemorrhage is present. No enlarged lymph nodes arepresent. Calcified right hilar lymph nodes. Thoracic Vasculature: The aorta and its branch vessels are mildly atherosclerotic. Abdomen/pelvis: Liver: The liver has a nodular surface, consistent with hepatic cirrhosis. A hypodense lesion within segment 2 corresponds with the previously identified LR 5 observation. Gallbladder and Bile Ducts: Multiple gallstones are seen. No wall thickening. Spleen: Enlarged measuring 17.8 cm craniocaudally. Pancreas: Normal. Adrenals: Normal. Kidneys: Symmetric enhancement with no evidence of nephrolithiasis or hydronephrosis. Multiple left-sided cysts are present. Gastrointestinal: There is seen within the distal esophagus. The small large bowel are nondilated. The appendix is not seen; however, no inflammatory changesare seen in the right lower quadrant. Mesentery/Peritoneum/Retroperitoneum: No free intraperitoneal air. Small-volume ascites. Demonstratedprominent retroperitoneal lymph nodes. For reference, a periaortic lymph node measures 1.3 cm in short axis (series 3 image 130), unchanged. Bladder: Normal. Reproductive Organs: The prostate is normal. Abdominal Vasculature: Atherosclerotic calcification of the aorta and its branch vessels. Extensive upper abdominal varices are redemonstrated. Bones: Bone windows demonstrate no suspicious lytic or blastic lesions. The visible osseous structures are intact. Degenerative changes are seen inthe spine. Advanced degenerative changes are seen within the rightglenohumeral joint. Soft tissues: A 1.4 cm soft tissue nodule measuring simple fluid density is seenwithin the upper chest wall. Bilateral gynecomastia. Redemonstrated umbilical hernia containing soft tissue density which may represent ascites and/or infarcted fat. Impression: 1.A 1.4 cm soft tissue nodule measuring simple fluid density within the upper chest wall, possibly representing an epidermal inclusion cyst. Recommend clinical correlation. 2.Otherwise, no evidence of metastatic disease in the chest. 3.Enlarged retroperitoneal lymph nodes measuring up to 1.3 cm are indeterminate. 4.Hepatic cirrhosis with sequelae of portal hypertension including small volume ascites, splenomegaly, and periesophageal varices. 5.A hypodense lesion within hepatic segment 2 corresponds with the previously identified LR-5 observation. 6.Cholelithiasis. > Dictated by Chandler Chavez MD (resident care manager). I, Arnold Henderson MD have personally reviewed and interpreted this examination/study. > Interpreting Provider: Arnold Henderson MD on 04/24/2025 9:18 PM Wing-Anant Doherty MD CT ORDERABLES Final Result * ALPHA FETOPROTEIN BLOOD TUMOR MARKER (04/24/2025 4:54 AM CDT) Alpha-Fetoprote in Tumor Marker 2.3 <=8.3 ng/mL 04/24/2025 6:27 AM CDT [facility] Comment: AFP values will vary depending on testing procedure used. Results are not comparable across different methods. AFP values obtained by [facility] using an Piper Alinity Immunoassay. Blood BLOOD SPECIMEN / Unknown Venipuncture / Unknown 04/24/2025 4:54 AM CDT 04/24/2025 5:29 AM CDT Cindy Doherty MD LAB - CHEMISTRY ORDERABLES Final Result Performing Organization Address City/[facility]/ZIP Co de Phone Number [facility] [address] [place] [address], [facility] [phone] * EKG 12-Lead (04/23/2025 10:36 AM CDT) Ventricular Rate 92 BPM SL MUSE Atrial Rate 92 BPM [facility] P-R Interval 158 ms [facility] QRS Duration ms 90 ms [facility] Q-T Interval ms 390 ms [facility] QTC Calculation (Bezet) 482 ms [facility] Calculated P [place] 66 degrees [facility] Calculated R [place] -11 degrees [facility] Calculated T [place] 30 degrees [facility] Interpretation EKG NORMAL SINUS RHYTHM INFERIOR INFARCT , AGE UNDETERMINED ANTERIOR INFARCT (CITED ON OR BEFORE 28-DEC-2024) ABNORMAL ECG WHEN COMPARED WITH ECG OF 28-DEC-2024 22:47, QUESTIONABLE CHANGE IN INITIAL FORCES OF ANTERIOR LEADS ,consider incorrect lead placement QT HAS SHORTENED Confirmed by NAOMI GUZMAN DO ([id number]) on 04/25/2025 8:59:22 AM [facility] 04/23/2025 10:3 6 AM CDT 04/25/2025 8:59 AM CDT Cindy Doherty MD ECG ORDERABLES Edited Result - Final Performing Organization Address City/[facility]/ZIP Co de Phone Number [facility] * CT Liver 3 Phase W Pelvis (04/22/2025 10:33 AM CDT) Anatomical Region Laterality Modality Abdomen Computed Tomogra phy 04/22/2025 1:06 PM CDT Addenda Addendum by Arnold Henderson MD on 04/24/2025 9:25 PM CDT Addendum: On further review and discussion with the tumor board there is another lesion in hepatic segment 3/4 B with faint ill-defined enhancement and delayed washout that measures 8 mm (Series 14, Image 33), LR 4. This was discussed in the hepatic tumor board meeting by Dr. Henderson on 04/24/2025, 4:30 PM. > Interpreting Provider: Arnold Henderson MD on 04/24/2025 9:22 PM Impressions 04/22/2025 1:17 PM CDT IMPRESSION: 1. Hepatic cirrhosis and portal hypertension including small volume ascites and paraesophageal varices. 2. There is a 2.7 cm enhancing observation in hepatic segment 2 with delayed washout consistent with hepatocellular carcinoma. LR 5. 3. Enlarged retroperitoneal lymph nodes are indeterminate. At minimum, imaging follow-up is recommended. > Interpreting Provider: Arnold Henderson MD on 04/22/2025 1:17 PM Narrative 04/22/2025 1:17 PM CDT PROCEDURE: CT LIVER 3 PHASE W PELVIS DATE/TIME OF EXAM: 04/22/2025 10:33 AM CLINICAL INFORMATION: None relevant/not provided if blank. Indication: K72.90: Decompensated hepatic cirrhosis (HCC) K74.60: Decompensated hepatic cirrhosis (HCC) Additional History: COMPARISON: None. TECHNIQUE: CT of the abdomen was performed utilizing liver multiphasic protocol. CT dose reduction technique was used, including Automated Exposure Control. IV CONTRAST: IOPAMIDOL 76 % IV SOLN:150 mL FINDINGS: Lung bases are clear. The heart is normal in size. There is no pericardial effusion. The liver is cirrhotic. There is an arterial enhancing lesion in hepatic segment 2 with delayed washout consistent with hepatocellular carcinoma and measures 2.7 cm. LR 5. (Series 14, Image 24) Spleen is enlarged measuring 17.8 cm craniocaudally. There is cholelithiasis without cholecystitis. The pancreas is normal. The adrenal glands are normal. The kidneys enhance symmetrically. No hydronephrosis. There are multiple left renal cysts. There is an accessory left hepatic artery arising from the left gastric artery. The portal vein is patent. There are extensive upper abdominal varices including paraesophageal varices, splenorenal shunting and shunting of the superior mesenteric vein to the lumbar veins. The small and large bowel are normal in caliber without bowel obstruction. There is no free intraperitoneal gas. There is small volume ascites. Subcentimeter retroperitoneal lymph nodes are indeterminate, for reference measuring 1.3 cm (Series 14, Image 99). Abdominal aorta is normal in caliber with calcifications. No suspicious osseous lytic or blastic lesion on bone windows. There is an umbilical hernia containing soft tissue density, which could be infarcted fat Procedure Note Arnold Henderson MD - 04/22/2025 PROCEDURE: CT LIVER 3 PHASE W PELVIS DATE/TIME OF EXAM: 04/22/2025 10:33 AM CLINICAL INFORMATION: None relevant/not provided if blank. Indication: K72.90: Decompensated hepatic cirrhosis (HCC) K74.60: Decompensated hepatic cirrhosis (HCC) Additional History: COMPARISON: None. TECHNIQUE: CT of the abdomen was performed utilizing liver multiphasic protocol. CT dose reduction technique was used, including Automated ExposureControl. IV CONTRAST: IOPAMIDOL 76 % IV SOLN:150 mL FINDINGS: Lung bases are clear. The heart is normal in size. There is nopericardial effusion. The liver is cirrhotic. There is an arterial enhancing lesion in hepatic segment 2 with delayed washout consistent with hepatocellular carcinomaand measures 2.7 cm. LR 5. (Series 14, Image 24) Spleen is enlarged measuring 17.8 cm craniocaudally. There is cholelithiasis without cholecystitis. The pancreas is normal.The adrenal glands are normal. The kidneys enhance symmetrically. No hydronephrosis. There are multiple left renal cysts. There is an accessory left hepatic artery arising from the left gastric artery. The portal vein is patent. There are extensive upper abdominal varices including paraesophageal varices, splenorenal shunting andshunting of the superior mesenteric vein to the lumbar veins. The small and large bowel are normal in caliber without bowelobstruction. There is no free intraperitoneal gas. There is small volume ascites. Subcentimeter retroperitoneal lymph nodes are indeterminate, forreference measuring 1.3 cm (Series 14, Image 99). Abdominal aorta is normal in caliber with calcifications. No suspicious osseous lytic or blastic lesion on bone windows. There is an umbilical hernia containing soft tissue density, which couldbe infarcted fat IMPRESSION: 1. Hepatic cirrhosis and portal hypertension including small volumeascites and paraesophageal varices. 2. There is a 2.7 cm enhancing observation in hepatic segment 2 with delayed washout consistent with hepatocellular carcinoma. LR 5. 3. Enlarged retroperitoneal lymph nodes are indeterminate. At minimum, imaging follow-up is recommended. > Interpreting Provider: Arnold Henderson MD on 04/22/2025 1:17 PM Alexi Aguilar MD CT ORDERABLES Edit ed Result - Final * PHOSPHATIDYLETHANOL (PETH) (04/22/2025 5:16 AM CDT) PEth 16:0/18.1 (POPEth) <10 ng/mL 04/24/2025 12:58 AM CDT [facility] ([facility]) Comment: PEth 16:0/18:1 (POPEth) Less than 10 ng/mL............Not detected Less than 20 ng/mL............Abstinence or light alcohol consumption 20 - 200 ng/mL................Moderate alcohol consumption Greater than 200 ng/mL........Heavy alcohol consumption or chronic alcohol use (Reference: Dave Posadas and Moraima Dickson 2018 J. Forensic Sci) PEth 16:0/18.2 (PLPEth) <10 ng/mL 04/24/2025 12:58 AM CDT [facility] ([facility]) Comment:Reference ranges are not well established. EER Peth See Note 04/24/2025 12:58 AM CDT [facility] ([facility]) Comment: Authorized individuals can access the [employer] Enhanced Report with an [employer] Connect account using the following link. Your local lab can assist you in obtaining the patient report if you don't have a Connect account. [email or web address] Interpretation PEth See Comment 04/24/2025 12:58 AM CDT [facility] ([facility]) Comment: Phosphatidylethanol (PEth) is a group of phospholipids formed in the presence of ethanol, phospholipase D and phosphatidylcholine. PEth is known to be a direct alcohol biomarker. The predominant PEth homologues are PEth 16:0/18:1 (POPEth) and PEth 16:0/18:2 (PLPEth), which account for 37-46% and 26-28% of the total PEth homologues, respectively. PEth is incorporated into the phospholipid membrane of red blood cells and has a general half-life of 4-10 days and a window of detection of 2-4 weeks. However, the window of detection is longer in individuals who chronically or excessively consume alcohol. The limit of quantification is 10 ng/mL. Serial monitoring of PEth may be helpful in monitoring alcohol abstinence over time. PEth results should be interpreted in the context of the patient's clinical and behavioral history. Patients with advanced liver disease may have falsely elevated PEth concentrations (Angelica MARTINEZ et al 2018, Alcoholism Clinical & Experimental Research). This test was developed and its performance characteristics determined by [facility]. It has not been cleared or approved by the U.S. Food and Drug Administration. This test was performed in a CLIA-certified laboratory and is intended for clinical purposes. Performed By: [facility] [address] [id number] Medical Practice Manager: Salomón Monroe MD, PhD CLIA Number: [id number] Blood BLOOD SPECIMEN / Unknown Lab Venipuncture / Unknown 04/22/2025 5:16 AM CDT 04/22/2025 6:00 AM CDT Alexi Aguilar MD LAB - CHEMISTRY RYLEE HENRIQUEZ Final Result [facility] ([facility]) [address] [place] [address], [facility] * Large Volume Paracentesis (03/21/2025 11:38 AM CDT) Report Endoscopy POC Endoscopy Department Report _ Patient Name: Brodie Ochoa Procedure Date: 03/21/2025 11:38 AM Date of : 1975 Classification: Outpatient Gender: Male Ethnicity: Not or Race: White _ Providers: Lillie Amos PA-C, Gama Chong MD: Procedure: Paracentesis (Repeat) Indications: Ascites, Ascites shown on ultrasound, Diagnostic to rule out peritonitis, Cirrhosis, Cirrhosis (Alcoholic), Portal hypertension Medications: 1% Lidocaine 10 mL SubQ Description of Procedure: After obtaining informed consent, the procedure was performed. Throughout the procedure, the patient's blood pressure, pulse, and oxygen saturations were monitored continuously. The paracentesis was accomplished without difficulty. The patient tolerated the procedure well. Findings: Prior to the procedure, the abdomen was examined and demonstrated moderate distention with ascites and a fluid wave to be present. With the patient in a supine with head elevated position, the procedure site was sterilely prepped using chloroprep and draped in the usual fashion. 10 mL of 1% lidocaine was infiltrated into the skin and subcutaneous tissues. Using a left lower quadrant approach, a small stab incision was made with a disposable blade and a 5 inch 12 gauge paracentesis needle and cannula system was inserted into the peritoneal cavity under ultrasound guidance. Aspiration demonstrated no blood and good return of peritoneal fluid. One pass was made. The trocar was then removed leaving the catheter in place. 3 liters of cloudy, yellow fluid was withdrawn using a vacuum bottle. Fluid was sent for cell count and differential and culture and sensitivities. The incision site was closed with exofin and tegaderm. 100 mL of 25% Albumin was administered after the procedure to treat the patient for dehydration. Estimated Blood Loss: Estimated blood loss: none. Complications: No immediate complications. Impression: - Paracentesis successfully performed. - Test results pending. Recommendation: - Discharge patient to home (ambulatory). - Return to liver clinic as previously scheduled. - Repeat paracentesis PRN for therapeutic purposes. Attending Participation: I was present for the argueta portions of this procedure and either I or my colleague was immediately available for all non-argueta portions of the procedure. Procedure Code(s): --- Professional --- 50052, Abdominal paracentesis (diagnostic or therapeutic); with imaging guidance Diagnosis Code(s): --- Professional --- K70.31, Alcoholic cirrhosis of liver with ascites K74.60, Unspecified cirrhosis of liver K76.6, Portal hypertension R18.8, Other ascites CPT copyright 2021 [employer]. All rights reserved. The codes documented in this report are preliminary and upon hematologist oncologist review may be revised to meet current compliance requirements. Lillie Amos PA-C 03/21/2025 11:41:55 AM This report has been signed electronically. Gama Penn, Note Initiated On: 03/21/2025 11:38 AM Number of Addenda: [address] [employer] 03/21/2025 11:3 8 AM CDT us Lillie Amos PA-C GI PROCEDURE ORDERABLES Edited Result - Final [facility] [employer] * PATHOLOGY SMEAR BODY FLUID (03/21/2025 10:23 AM CDT) Path Review Fluid Confirmed 03/21/2025 4:02 PM CDT [facility] Fluid PERITONEAL FLUID / Unknown Collection / Unknown 03/21/2025 10:23 AM CDT 03/21/2025 10:31 AM CDT Narrative [facility] - 03/21/2025 4:02 PM CDT Peritoneal fluid cytospin: -Heavy peripheral blood involvement -No microorganisms Interpretation: The majority of cells are chronic inflammatory cells. No microorganisms are identified. Clinical History: The patient is a 49-year-old male with a history of decompensated cirrhosis. Giana Hung MD Attending Physician Department of Pathology Transfusion Medicine Lillie Amos PA-C LAB - PATHOLOGY/CYTOLOG Y ORDERABLES Final Result [facility] [address] [place] [address], [place] [facility] [phone] * DIFFERENTIAL MANUAL FLUID (03/21/2025 10:23 AM CDT) Fluid Source Peritoneal 03/21/2025 11:09 AM [facility] Body Fluid Total Cell Count 100 x10E6/L 03/21/2025 11:09 AM [facility] Neutrophils Fluid Percent 14 % 03/21/2025 11:09 AM [facility] Lymphocytes Fluid Percent 59 % 03/21/2025 11:09 AM [facility] Macrophages Fluid Percent 20 % 03/21/2025 11:09 AM [facility] Eosinophils Fluid Percent 1 % 03/21/2025 11:09 AM [facility] Plasma Cells Fluid Percent 2 % 03/21/2025 11:09 AM [facility] Other Cells Fluid Percent 4 % 03/21/2025 11:09 AM [facility] Comment:Large mononuclear ce lls with basophilic cytoplasm Fluid PERITONEAL FLUID / Unknown Collection / Unknown 03/21/2025 10:23 AM CDT 03/21/2025 10:31 AM CDT Narrative [facility] - 03/21/2025 11:09 AM CDT A potentially abnormal cell population has been identified. A pathologist review has been ordered. Additional testing may be required to rule out malignancy and/or further classify this cell population. No reference ranges established for body fluid differential cell counts. The test results must be integrated into the clinical context for interpretation. us Lillie Amos PA-C LAB - BODY FLUID ORDERA BLES Final Result [facility] [address] [place] [address], [facility] [phone] * CULTURE FLUID+GRAM STAIN (03/21/2025 10:23 AM CDT) Culture No growth VASILIY 03/26/2025 1:45 PM CDT [facility] Other PERITONEAL FLUID / Unknown Collection / Unknown 03/21/2025 10:23 AM CDT 03/21/2025 10:31 AM CDT Narrative [facility] - 03/26/2025 1:45 PM CDT BOTTLES ONLY. us Lillie Amos PA-C LAB - MICROBIOLOGY ORDE RABLES Final Result Performing Organization Address City/[facility]/ZIP Co de Phone Number [facility] [address] [place] [address], [facility] [phone] * CELL COUNT W DIFFERENTIAL FLUID (03/21/2025 10:23 AM CDT) Fluid Source Peritoneal 03/21/2025 11:09 AM CDT [facility] Fluid Appearance CLOUDY 03/21/2025 11:09 AM CDT [facility] Fluid Color YELLOW 03/21/2025 11:09 AM CDT [facility] Total Nucleated Cells Fluid 145 Reference Range Not Established x10E6/L 03/21/2025 11:09 AM CDT [facility] RBC Count Fluid 4,000 Reference Range Not Established x10E6/L 03/21/2025 11:09 AM CDT [facility] Fluid PERITONEAL FLUID / Unknown Collection / Unknown 03/21/2025 10:23 AM CDT 03/21/2025 10:31 AM CDT Narrative [facility] - 03/21/2025 11:09 AM CDT No reference ranges established for body fluid cell counts. Any reference ranges provided are derived from published literature. The test results must be integrated into the clinical context for interpretation. us Lillie Amos PA-C LAB - BODY FLUID ORDERA BLES Final Result [facility] [address] [place] [address], [facility] [phone] * HEMOGLOBIN A1C - POINT OF CARE (AMB) (03/18/2025) Pathologist [facility] Hemoglobin A1c POCT 5.0 % Expiration Date 09/25/2026 Lot # [id number] QC Verified Yes Yes Blood BLOOD SPECIMEN / Unknown 03/18/2025 us Jane Ruiz MD LAB - POINT OF CARE ORD ERABLES Final Result * (ABNORMAL) HEPATIC FUNCTION PANEL (03/08/2025 11:40 AM CDT) [facility] Protein Total 8.4(H) 6.0 - 8.3 g/dL 025 1:15 PM [facility] Albumin 2.1(L) 3.4 - 5.0 g/dL 03/08/2025 1:15 PM [facility] Bilirubin Total 3.6(H) 0.2 - 1.2 mg/dL 12/2024 1:15 PM [facility] Bilirubin Conjugated 1.6(H) 0.1 - 0.5 mg/dL 03/08/2025 1:15 PM [facility] Bilirubin Unconjugated 2.0 Unconjugated Bilirubin is a calculated value: Reference ranges have not been established. mg/dL 03/08/2025 1:15 PM [facility] Alkaline Phosphatase 138 40 - 150 U/L 03/08/2025 1:15 PM [facility] ALT 31 5 - 55 U/L 03/08/2025 1:15 PM [facility] AST 58(H) 5 - 34 U/L 03/08/2025 1:15 PM [facility] Albumin/Globulin Ratio 0.3(L) 1.1 - 2.3 03/08/2025 1:15 PM [facility] Blood BLOOD SPECIMEN / Unknown Lab Venipuncture / Unknown 03/08/2025 11:40 AM CDT 03/08/2025 12:43 PM CDT Will Mckenzie MD LAB - CHEMISTRY ORDERABLES Fin al Result Performing Organization Address [facility]/ZIP Co de Phone Number [address] [address], [facility] [phone] * HIV-1 HIV-2 ANTIBODY + HIV P24 AG PANEL (01/02/2025 12:39 AM [facility]) HIV Antigen/Antibod y 1 & 2 Non-reacti ve Non-react santy 01/02/2025 1:46 AM [facility] Comment:No Laboratory eviden ce of HIV infection. Blood BLOOD SPECIMEN / Unknown Venipuncture / Unknown 01/02/2025 12:39 AM [facility] 01/02/2025 12:45 AM [facility] Sarah Covarrubias MD LAB - CHEMISTRY ORDERABLES Final Result Performing Organization Address [facility]/ZIP Co de Phone Number [address] [address], [facility] [phone] * HEPATITIS SCREEN ACUTE (12/29/2024 3:19 AM [facility]) Hepatitis A Virus Antibody IgM Non-react santy Non-reac tive 12/29/2024 4:37 AM [facility] Hepatitis B Virus Surface Antigen Non-react santy Non-reac tive 12/29/2024 4:37 AM [facility] Hepatitis B Core Virus Antibody IgM Non-react santy Non-reac tive 12/29/2024 4:37 AM [facility] Hepatitis C Antibody Non-react santy Non-reac tive 12/29/2024 4:37 AM [facility] Comment:Hepatitis C Antibody screen indicates no serologic evidence of past or current infection with Hepatitis C Virus. Patients with unexplained liver disease who are immunocompromised or suspected of having acute Hepatitis C infection may benefit from Nucleic Acid Test (RAHUL) for Hepatitis C Viral RNA to confirm Hepatitis C status. Blood BLOOD SPECIMEN / Unknown Venipuncture / Unknown 12/29/2024 3:19 AM [facility] 12/29/2024 4:03 AM [facility] Bassam Valverde MD LAB - CHEMISTRY ORDERABL ES Final Result [facility] [address] [place] [address], [place] [phone] from Last 3 Months or Most Recently Relevant to Health Maintenance Insurance [facility] MEDICAID Advance Directives * DNR - IF PULSELESS NO CPR, NO SHOCK (Latest Code Status on File) Date Activated Date Inactivated Comments 05/06/2025 2:00 PM 05/15/2025 7:45 PM Question Answer Comments : DO NOT discontinue a ny active orders without asking attending physician. * Full Code Date Activated Date Inactivated Comments 05/05/2025 12:31 PM 05/06/2025 2:00 PM * LIMITED RESUSCITATION-PRIOR AND AFTER ARREST Date Activated Date Inactivated Comments 04/29/2025 5:55 PM 05/05/2025 12:31 PM Question Answer Comments Limited Resuscitation: No Chest Compress ionNo Intubation, No Invasive Ventilation * Full Code Date Activated Date Inactivated Comments 04/21/2025 11:54 PM 04/29/2025 5:55 PM * Full Code Date Activated Date Inactivated Comments 01/14/2025 7:30 PM 01/28/2025 4:11 PM Care Teams Senior Analyst Market Intelligence Relationship Specialty Start Date End Date Jane Ruiz MD [address] [place] [address] PCP - General Internal Medicine 03/20/25
--- OUTSIDE RECORDS SUMMARY | 2025-05-19 20:58 | XMS_ITS | Clinical Summary ---
Author Organization [facility] Address [address] [place] [address] Care Team Providers Care Rehabilitation Services Aide Name Role Phone None, Provider MD Primary Care Provider Unavaila ble Allergies No known active allergies Medications furosemide (LASIX) 40 MG tablet Take 1 tablet (40 mg total) by mouth every morning. Active lactulose (CHRONULAC) 10 GM/15ML solution Take 30 mLs (20 g total) by mouth 3 (three) times daily. 01/27/2025 Active rifAXIMin (XIFAXAN) 550 MG Tab Take 1 tablet (550 mg total) by mouth 2 (two) times daily. 02/12/2025 Active spironolactone (ALDACTONE) 100 MG tablet Take 1 tablet (100 mg total) by mouth daily. 03/08/2025 Active sulfamethoxazole -trimethoprim (BACTRIM DS) 800-160 MG tablet Take 1 tablet by mouth daily. 02/12/2025 Active Encounters Date Type Department Care Team Description 04/20/2025 6:00 PM CDT - 04/21/2025 10:38 PM CDT Emergency [facility] [place] [address] Alex Hernandes MD Harp, Jordan, MD Smith, Jennifer C, MD Khishfe, Basem, MD Altered Mental Status Discharge Disposition: Transfer to Acute Care Hospital 04/20/2025 Travel from Last 3 Months Social History Tobacco Use Types Packs/Day Years Used Date Smoking Tobacco: Former Cigarettes Smokeless Tobacco: Never Tobacco Cessation:Counseling Given: Not Answered Alcohol Use Standard Drinks/Week Comments Yes 0 (1 standard drink = 0.6 oz pur e alcohol) social Sex and Gender Information Value Date Recorded Sex Assigned at Male 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 Male 7:01 PM CDT Gender Identity Not on file Sexual Orientation Not on file Last Filed Vital Signs Vital Sign Reading Time Taken Comments Blood Pressure 133/79 04/21/2025 10:00 PM CDT Pulse 75 04/21/2025 10:00 PM CDT Temperature 36.6 C (97.9 F) 04/20/2025 6:05 PM CDT Respiratory Rate 13 04/21/2025 10:0 0 PM CDT Oxygen Saturation 98% 04/21/2025 10: 00 PM CDT Inhaled Oxygen Concentration - - Weight 73.8 kg (162 lb 11.2 oz) 04/20/2025 6:05 PM CDT Height 175.3 cm (5' 9) 04/20/2025 6:05 PM CDT Body Mass Index 24.03 04/20/2025 6:05 PM CDT Plan of Treatment Health Maintenance Due Date Last Done Comments Colorectal Cancer Screening Colonoscopy (10 Years) 1974 Annual Physical 1977 DTaP, Tdap and Td Vaccines ( 1 - Tdap) 1993 Hepatitis B Vaccines (1 of 3 - 19+ 3-dose series) 1993 Pneumococcal Vaccine: 50+ Years (1 of 2 - PCV) 1993 Zoster Vaccines (1 of 2) 2024 COVID-19 Vaccine (1 - 2023-2 5 season) 2024 Hepatitis C Completed 12/29/2024, 12/29/2024, 12/29/2024 Meningococcal B Vaccine Aged Out No l onger eligible based on patient's age to complete this topic Meningococcal Vaccine Aged Out No emiliano adan eligible based on patient's age to complete this topic RSV Immunizations Under 20 Months Aged Out No longer eligible b ased on patient's age to complete this topic Procedures Procedure Name Priority Date/Time Associated Diagnosis Comments POCT GLUCOSE - DOCKED DEVICE Routine 04/21/2025 2:20 PM CDT AMMONIA STAT 04/21/2025 11:05 AM CDT HC URINALYSIS AUTO W/O MICRO STAT 04/21/2025 10:31 AM CDT COMPREHENSIVE METABOLIC PANEL STAT 04/21/2025 6:23 AM CDT CULTURE, BACTERIA, BLOOD STAT 04/20/2025 9:56 PM CDT CULTURE, BACTERIA, BLOOD STAT 04/20/2025 9:56 PM CDT EEG ROUTINE STAT 04/20/2025 9:51 PM CDT XR CHEST PORTABLE STAT 04/20/2025 7:[address] HEAD WO CON STAT 04/20/2025 6:52 PM CDT SALICYLATE STAT 04/20/2025 6:13 PM CDT ETHANOL STAT 04/20/2025 6:13 PM CDT ACETAMINOPHEN STAT 04/20/2025 6:13 PM CDT AMMONIA STAT 04/20/2025 6:13 PM CDT LIPASE STAT 04/20/2025 6:13 PM CDT COMPREHENSIVE METABOLIC PANEL STAT 04/20/2025 6:13 PM CDT PARTIAL THROMBOPLASTIN TIME,PTT STAT 04/20/2025 6:13 PM CDT PROTHROMBIN TIME, VENOUS STAT 04/20/2025 6:13 PM CDT CBC W/DIFF AUTOMATED STAT 04/20/2025 6:13 PM CDT from Last 3 Months Results * (ABNORMAL) POCT glucose (04/21/2025 2:20 PM CDT) [facility] Signature GLUCOSE POC 317(H) 70 - 99 mg/dL 04/21/2025 2:21 PM CDT [facility] 04/21/2025 2:20 PM CDT Eliceo Bhatia MD POCT ORDERABLES - DEVICE Final Result Performing Organization Address [facility] Co de Phone Number [facility] [address] [place] [address], [place] [phone] * (ABNORMAL) AMMONIA (04/21/2025 11:05 AM CDT) Only the most recent of2 resultswithin the time period is included. AMMONIA 97(H) 11 - 32 UMOL/L 04/21/2025 11:49 AM CDT [facility] 04/21/2025 11:0 5 AM CDT Claudia Dickson MD LABORATORY Final Result Performing Organization Address [facility] Co de Phone Number [facility] [address] [place] [address], [place] [phone] * (ABNORMAL) URINALYSIS (04/21/2025 10:31 AM CDT) SPECIMEN TYPE URINE CLEAN CATCH 04/21/2025 10:51 AM CDT [facility] COLOR (U) YELLOW 04/21/2025 11:08 AM CDT [facility] TRANSPARENCY CLEAR 04/21/2025 11:08 AM CDT [facility] SPECIFIC GRAVITY (U) 1.010 1.001 - 1.030 04/21/2025 11:08 AM CDT [facility] U PH 7.0 5.0 - 9.0 04/21/2025 11:08 AM CDT [facility] LEUKOCYTES (U) NEGATIVE NEGATIVE 04/21/2025 11:08 AM CDT [facility] NITRITES NEGATIVE NEGATIVE 04/21/2025 11:08 AM CDT [facility] PROTEIN RANDOM (U) NEGATIVE <30 MG/DL 04/21/2025 11:08 AM CDT [facility] GLUCOSE (U) 1000(A) NORMAL MG/DL 04/21/2025 11:08 AM CDT [facility] KETONES MG/DL (U) NEGATIVE NEGATIVE MG/DL 04/21/2025 11:08 AM CDT [facility] UROBILINOGEN 2.0(A) NORMAL MG/DL 04/21/2025 11:08 AM CDT [facility] BILIRUBIN (U) NEGATIVE NEGATIVE MG/DL 04/21/2025 11:08 AM CDT [facility] BLOOD (U) NEGATIVE NEGATIVE 04/21/2025 11:08 AM CDT [facility] URINE SPECIMEN OBTAINED BY CLEAN CATCH PROCEDURE / Unknown 04/21/2025 10:31 AM CDT us Alex Hernandes MD URINE ORDERABLES F inal Result [facility] [address] [place] [address], [place] [phone] * (ABNORMAL) COMPREHENSIVE METABOLIC PANEL (04/21/2025 6:23 AM CDT) Only the most recent of2 resultswithin the time period is included. GLUCOSE 224(H) 70 - 99 MG/DL 04/21/2025 7:07 AM CDT [facility] BUN 12 7 - 18 MG/DL 04/21/2025 7:07 AM CDT [facility] CREATININE S/P/B 0.94 0.7 - 1.3 MG/DL 04/21/2025 7:07 AM CDT [facility] SODIUM S/P/B 135(L) 136 - 145 MMOL/L 04/21/2025 7:07 AM T [facility] POTASSIUM S/P/B 3.7 3.5 - 5.1 MMOL/L 04/21/2025 7:07 AM T [facility] CHLORIDE S/P/B 105 97 - 115 MMOL/L 04/21/2025 7:07 AM CDT [facility] CO2 20.4(L) 21 - 32 MMOL/L 04/21/2025 7:07 AM T [facility] CALCIUM S/P/B 8.8 8.5 - 10.1 MG/DL 04/21/2025 7:07 AM T [facility] BILIRUBIN TOTAL S/P/B 3.2(H) 0.2 - 1.2 MG/DL 04/21/2025 7:07 AM T [facility] Comment: THIS ASSAY IS NOT RECOMMENDED FOR PATIENTS UNDERGOING TREATMENT WITH ELTROMBOPAG DUE TO THE POTENTIAL FOR FALSELY ELEVATED RESULTS. TOTAL PROTEIN S/P/B 9.1(H) 6.4 - 8.2 G/DL 04/21/2025 7:07 AM T [facility] ALBUMIN S/P/B 2.1(L) 3.4 - 5.0 G/DL 04/21/2025 7:07 AM T [facility] AST 50(H) 15 - 37 U/L 04/21/2025 7:07 AM T [facility] ALT 36 16 - 60 U/L 04/21/2025 7:07 AM T [facility] ALKALINE PHOSPHATASE S/P/B 121 50 - 136 U/L 04/21/2025 7:07 AM T [facility] ANION GAP 9.6 2 - 10 MMOL/L 04/21/2025 7:07 AM CDT [facility] BUN CREATININE RATIO 12.7 6 - 26 04/21/2025 7:07 AM CDT [facility] A/G RATIO 0.3(L) 1.0 - 2.0 RATIO 04/21/2025 7:07 AM CDT [facility] GFR ESTIMATE >90 >90 ML/MIN/1.7 3 M2 04/21/2025 7:07 AM CDT [facility] Comment: NOTE: eGFR is not calculated for patients <18 years of age or gender unknown. This is an estimated GFR calculation using the new CKD EPI creatinine equation without race and so does not require a correction factor for race. This estimated GFR should not be used for calculating drug doses. 04/21/2025 6:23 AM CDT Claudia Dickson MD LABORATORY Final Result [facility] [address] [place] [address], [place] [phone] * CULTURE, BACTERIA, BLOOD (04/20/2025 9:56 PM CDT) Only the most recent of2 resultswithin the time period is included. SPEC DESCRIPTION BLOOD 04/20/2025 8:24 PM CDT [facility] SPECIAL REQUESTS NO SPECIAL REQUEST 04/20/2025 8:24 PM CDT [facility] CULTURE RESULT NO GROWTH 5 DAYS 04/25/2025 10:21 PM CDT [facility] BLOOD SPECIMEN OBTAINED FOR BLOOD CULTURE / Unknown 04/20/2025 9:56 PM CDT 04/20/2025 10:06 PM CDT Alex Hernandes MD MICROBIOLOGY - GEN ERAL ORDERABLES Final Result [facility] [address] [place] [address], * XR CHEST PORTABLE (04/20/2025 7:23 PM CDT) Anatomical Region Laterality Modality Chest Radiographic Autumn ging 04/20/2025 7:57 PM CDT Impressions 04/20/2025 7:57 PM CDT Impression: No acute findings. Referred By: Interpreted By: Viet Hannah MD, 04/20/2025 7:57 PM Narrative 04/20/2025 7:57 PM CDT [address] [address] Examination: Chest 1 view portable History: Altered mental status DATE/TIME: 04/20/2025 6:35 PM Comparison: 12/26/2024 Technique: AP semiupright portable view of the chest was obtained. Findings: Prominent heart size. Pulmonary vasculature is normal. No pulmonary consolidation, pleural effusion or pneumothorax. Calcified granuloma, right lung base. No acute osseous abnormality. Procedure Note Viet Hannah MD - 04/20/[address] [address] Examination: Chest 1 view portable History: Altered mental status DATE/TIME: 04/20/2025 6:35 PM Comparison: 12/26/2024 Technique: AP semiupright portable view of the chest was obtained. Findings: Prominent heart size. Pulmonary vasculature is normal. Nopulmonary consolidation, pleural effusion or pneumothorax. Calcifiedgranuloma, right lung base. No acute osseous abnormality. Impression: No acute findings. Referred By: Interpreted By: Viet Hannah MD, 04/20/2025 7:57 PM us Alex Hernandes MD GENERAL IMAGING Fi nal Result * CT HEAD WO CON (04/20/2025 6:52 PM CDT) Anatomical Region Laterality Modality Head Computed Tomogra phy 04/20/2025 7:57 PM CDT Impressions 04/20/2025 8:03 PM CDT IMPRESSION: 1. No definite CT evidence for acute intracranial abnormality. 2. Mild chronic volume loss. Please note that CT has limited sensitivity for the detection of acute ischemia Referred By: Interpreted By: Viet Hannah MD, 04/20/2025 7:57 PM Narrative 04/20/2025 8:03 PM CDT [address] [address] EXAMINATION: CT of the head CLINICAL HISTORY: Altered metal status COMPARISON: 09/13/2010 TECHNIQUE: CT examination of the head without contrast was performed with axial images obtained. A radiation dose lowering technique was used for this procedure, which may include, but is not limited to, dose reduction technique, automated exposure control, the use of iterative reconstruction, ALARA (As Low As Reasonably Achievable) techniques, and Image Gently techniques. FINDINGS: There is no evidence of acute intracranial hemorrhage, abnormal extra-axial collections, intracranial mass effect, or midline shift. There is mild volume loss with enlargement of the ventricles and extra-axial/subarachnoid spaces on new since 2009. Atherosclerotic calcifications of the intracranial arterial vasculature are evident. There is no definite CT evidence to suggest acute territorial infarction. The calvarium is unremarkable, without evidence of acute fracture. The visualized mastoid air cells, paranasal sinuses, and orbits are grossly unremarkable. Procedure Note Viet Hannah MD - 04/20/[address] [place], [place] [address] EXAMINATION: CT of the head CLINICAL HISTORY: Altered metal status COMPARISON: 09/13/2010 TECHNIQUE: CT examination of the head without contrast was performed withaxial images obtained. A radiation dose lowering technique was used forthis procedure, which may include, but is not limited to, dose reductiontechnique, automated exposure control, the use of iterativereconstruction, ALARA (As Low As Reasonably Achievable) techniques, andImage Gently techniques. FINDINGS: There is no evidence of acute intracranial hemorrhage, abnormalextra-axial collections, intracranial mass effect, or midline shift. Thereis mild volume loss with enlargement of the ventricles andextra-axial/subarachnoid spaces on new since 2009. Atheroscleroticcalcifications of the intracranial arterial vasculature are evident. Thereis no definite CT evidence to suggest acute territorial infarction. Thecalvarium is unremarkable, without evidence of acute fracture. Thevisualized mastoid air cells, paranasal sinuses, and orbits are grosslyunremarkable. IMPRESSION: 1. No definite CT evidence for acute intracranial abnormality. 2. Mild chronic volume loss. Please note that CT has limited sensitivity for the detection of acuteischemia Referred By: Interpreted By: Viet Hannah MD, 04/20/2025 7:57 PM Alex Hernandes MD CT Fi nal Result * (ABNORMAL) PARTIAL THROMBOPLASTIN TIME,PTT (04/20/2025 6:13 PM CDT) PTT 37.6(H) 25.1 - 36.5 SEC 04/20/2025 6:51 PM CDT [facility] 04/20/2025 6:13 PM CDT Alex Hernandes MD LABORATORY Fi nal Result [facility] [address] [place] [address], [place] [phone] * (ABNORMAL) PROTIME/INR, VENOUS (04/20/2025 6:13 PM CDT) PROTIME 18.4(H) 10.2 - 12.9 SEC 04/20/2025 6:51 PM CDT [facility] INR 1.6 04/20/2025 6:51 PM CDT [facility] Comment: Recommended INR Therapeutic Goals: 2.0-3.0 Routine Therapy 2.5-3.5 Mechanical Prosthetic Valves (High Risk) 04/20/2025 6:13 PM CDT us Alex Hernandes MD LABORATORY Fi nal Result [facility] [address] [place] [address], * (ABNORMAL) CBC W/DIFF AUTOMATED (04/20/2025 6:13 PM CDT) Pathologist [facility] WBC 5.49 4.5 - 11.0 x10'3/uL 04/20/2025 6:30 PM CDT [facility] RBC 2.63(L) 4.70 - 6.10 x10'6/uL 04/20/2025 6:30 PM CDT [facility] HGB 8.7(L) 14.0 - 18.0 G/DL 04/20/2025 6:30 PM CDT [facility] HCT 23.7(L) 43.0 - 54.0 % 04/20/2025 6:30 PM CDT [facility] MCV 90.1 80.0 - 94.0 FL 04/20/2025 6:30 PM CDT [facility] MCH 33.1(H) 27.0 - 31.0 PG 04/20/2025 6:30 PM CDT [facility] MCHC 36.7(H) 32.0 - 36.0 G/DL 04/20/2025 6:30 PM CDT [facility] RDW 15.7(H) 11.5 - 14.5 % 04/20/2025 6:30 PM CDT [facility] PLT 123(L) 130 - 400 x10'3/uL 04/20/2025 6:30 PM CDT [facility] MPV 9.6 9.3 - 12.2 FL 04/20/2025 6:30 PM CDT [facility] DIFFERENTIAL TYPE AUTOMATED DIFFERENTIAL 04/20/2025 6:30 PM CDT [facility] NEUTROPHILS % 74.3 % 04/20/2025 6:30 PM CDT [facility] LYMPHOCYTES % 13.1 % 04/20/2025 6:30 PM CDT [facility] MONOCYTES % 10.2 % 04/20/2025 6:30 PM CDT [facility] EOSINOPHILS 1.1 % 04/20/2025 6:30 PM CDT [facility] BASOPHILS 1.1 % 04/20/2025 6:30 PM CDT [facility] IMMATURE GRANS % 0.2 % 04/20/20 6:30 PM CDT [facility] ABS. NEUTROPHILS 4.08 1.80 - 7.70 x10'3/uL 04/20/2025 6:30 PM CDT [facility] ABS. LYMPHOCYTES 0.72(L) 1.00 - 4.80 x10'3/uL 04/20/2025 6:30 PM CDT [facility] ABS. MONOCYTES 0.56 0.30 - 0.82 x10'3/uL 04/20/2025 6:30 PM CDT [facility] ABS. EOSINOPHILS 0.06 0.04 - 0.54 x10'3/uL 04/20/2025 6:30 PM CDT [facility] ABS. BASOPHILS 0.06 0.01 - 0.08 x10'3/uL 04/20/2025 6:30 PM CDT [facility] ABS. IMMATURE GRANULOCYTES 0.01 0.00 - 0.49 x10'3/uL 04/20/2025 6:30 PM CDT [facility] 04/20/2025 6:13 PM CDT Alex Hernandes MD LABORATORY Fi nal Result Performing Organization Address [facility]/ZIP Co de Phone Number [facility] [address] [place] [address], [place] [phone] * LIPASE (04/20/2025 6:13 PM CDT) LIPASE 50 13 - 75 UNITS/L 04/20/2025 6:50 PM CDT [facility] 04/20/2025 6:13 PM CDT Alex Hernandes MD LABORATORY Fi nal Result [facility] [address] [place] [address], [place] [phone] * (ABNORMAL) SALICYLATE (04/20/2025 6:13 PM CDT) SALICYLATES <1.7(L) 2.8 - 20.0 MG/DL 04/20/2025 6:45 PM CDT [facility] Comment: THERAPEUTIC: 2.8-20.0 Toxic Level: >=30 04/20/2025 6:13 PM CDT Alex Hernandes MD LABORATORY Fi nal Result Performing Organization Address [facility] Co de Phone Number [facility] [address] [place] [address], [place] [phone] * ETHANOL (04/20/2025 6:13 PM CDT) ALCOHOL S/P/B <0.003 <0.003 G/DL 04/20/2025 6:50 PM CDT [facility] 04/20/2025 6:13 PM CDT Alex Hernandes MD LABORATORY Fi nal Result Performing Organization Address [facility] de Phone Number [facility] [address] [place] [address], [place] [phone] * (ABNORMAL) ACETAMINOPHEN (04/20/2025 6:13 PM CDT) ACETAMINOPHEN S/P/B <2.0(L) 10.0 - 30.0 MCG/ML 04/20/2025 6:45 PM CDT [facility] Comment: THERAPEUTIC: 10-30 TOXIC: >200 04/20/2025 6:13 PM CDT Alex Hernandes MD LABORATORY Fi nal Result Performing Organization Address [facility] Co de Phone Number [facility] [address] [place] [address], [place] [phone] from Last 3 Months [facility] Direct[facility] * Full Code (Latest Code Status on File) Date Activated Date Inactivated Comments 04/20/2025 10:00 PM 04/22/2025 12:43 AM Care Teams Rehabilitation Services Aide Relationship Specialty Start Date End Date None, Provider, MD PCP - General UNKNOWN PHYSICIAN SPECIALTY 12/26/24
--- OUTSIDE RECORDS SUMMARY | 2025-05-19 20:58 | XMS_ITS | Encounter Summary ---
Author Organization [facility] Address [address] [place] [address] Care Team Providers Care Seamer Name Role Phone Jane Ruiz MD Primary Care Provider Encounter Details Date Type Department Care Team (Late st Contact Info) Description 05/15/2025 Results Follow-Up [facility] 6S ACUTE [address] [place] [phone] Lauryn Brooks Social History Tobacco Use Types Packs/Day Years [...] Recorded Patient Health Questionnaire-2 Score 0 03/18/2025 [facility] of Occupat ional Health - Occupational Stress [...] any time in the past 12 m [facility], were you homeless or living in a [facility] (including now)? 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 Gender Identity Not on file Sexual Orientation [...] Description 05/21/2025 10:30 AM CDT Office Visit [facility] - Nephrology [address] [place] [phone] Sarah Headley MD [address] [place] [address] Margaret Inman MD [address] [place] [address] 06/11/2025 2:30 PM CDT Office Visit [facility] - GI [address] [place] [phone] Deepali Joiner, ECCLESIASTICAL WORKER-RUBBER CALENDER HELPER [address] [place] [address] [address] [place] [address] 06/18/2025 3:00 PM CDT Office Visit [facility] - Family Medicine [address] [phone] Jane Ruiz MD [address] [place] [address] documented as of this encounter [...] on filedocumented in this encounter Care Teams Seamer Relationship Specialty Start Date End Date Jane Ruiz MD [address] [place] [address] PCP - General Internal Medicine 03/20/25 documented as of this encounter
[2025-05-19 21:13] LABS: Hematocrit 29.3 % (42.0-52.0); Hemoglobin 9.5 g/dL (14.0-18.0); Immature Granulocyte Percent A 0.3 % (0-0.5); Lymphocytes Absolute Auto 0.46 K/mm3 (0.9-3.2); Mean Corpuscular HGB Conc 32.4 g/dl (32-36); Mean Corpuscular Hemoglobin 30.9 pg (26-34); Mean Corpuscular Volume 95.4 fl (80-100); Nucleated Red Blood Cells Absolute Auto 0.000 K/mm3 (0.0-0.012); Nucleated Red Blood Cells Perc 0.0 % (0.0-0.2); Platelet Count Result 106 k/mm3 (150-375); Red Blood Count 3.07 M/mm3 (4.6-6.20); White Blood Count 9.6 K/mm3 (4.5-10.0)
[2025-05-19] MEDS: OCTREOTIDE ACETATE 50 MCG/ML VIAL IV PUSH (21:18)
[2025-05-19 21:28] LABS: Schistocytes None Seen
[2025-05-19 21:31] LABS: Partial Thromboplastin Time 37.3 Seconds (22.3-36.8)
[2025-05-19 21:32] LABS: Alanine Aminotransferase 45 U/L (6-50); Albumin Level 3.2 g/dL (3.5-5.1); Alkaline Phosphatase 116 U/L (38-126); Anion Gap 9 mmol/L (4-12); Aspartate Amino Transferase 113 U/L (17-59); Bilirubin,Total 7.0 mg/dL (0.2-1.3); Blood Urea Nitrogen 9 mg/dL (9-20); Calcium 8.2 mg/dL (8.4-10.2); Carbon Dioxide 22 mmol/L (22-30); Chloride 104 mmol/L (98-107); Estimated CRCL calculation 125 ml/min; Estimated Glomerular Filt Rate > 60; Glucose 193 mg/dL (65-110); Magnesium 1.7 mg/dL (1.6-2.3); Potassium 4.3 mmol/L (3.4-5.0); Sodium 135 mmol/L (137-145); Total Protein 7.8 g/dL (6.3-8.2)
[2025-05-19 21:33] LABS: Ammonia 12 umol/L (9-30)
[2025-05-19] MEDS: PANTOPRAZOLE SODIUM IV 80 MG in SODIUM CHLORIDE 0.9% IV 500 ML 50 MG IV CONT (21:34)
[2025-05-19] MEDS: OCTREOTIDE ACETATE 500 MCG in SODIUM CHLORIDE 0.9% IV 99 ML IV CONT (21:35)
[2025-05-19 21:46] LABS: INR 2.5; Prothrombin Time 26.0 Seconds (11.1-14.7)
[2025-05-19 22:12] LABS: Lipase 18048 U/L (23-300)
--- NOTE | 2025-05-19 22:53 | PC.NURSE ---
2129---Patient vomiting bright red blood
[2025-05-19 23:19] LABS: Hemoglobin 6.8 g/dL (14.0-18.0)
--- NOTE | 2025-05-19 23:19 | PC.NURSE ---
Report to Cortney FRANKLIN
[2025-05-19 23:20] LABS: Hematocrit 20.5 % (42.0-52.0)
[2025-05-19 23:40] VITALS: BP 94/57; PULSE 75; RESP 14; TEMP 37.6; O2SAT 96
[2025-05-19 23:57] VITALS: BP 98/62; PULSE 70; RESP 12; O2SAT 96
[2025-05-20] VITALS (40 sets, daily range): BP systolic 85–125; BP diastolic 54–79; PULSE 60–84; RESP 10–22; TEMP 36.4–37; O2SAT 76–100
[2025-05-20] MEDS: ALBUMIN HUMAN 25% 25 GM/100 ML 200 ML IVPB (00:24)
--- NOTE | 2025-05-20 00:44 | ED.GENADULT ---
HPI - General Adult General Chief complaint: GI Bleed Stated complaint: VOMITING BLOOD, DISTENDED ABD. Time Seen by Provider: 05/19/25 20:42 History of Present Illness HPI narrative: Patient is a 50-year-old male who presents to the emergency department from [facility] due to concern for an upper GI bleed. Patient has had to reported episodes of hematemesis prior to arrival. EMS also states that he did have 1 episode on route to the emergency department. Patient has a history of alcoholism and secondary to this develop cirrhosis with liver failure and esophageal varices. He follows up with [facility] through with her hepatology Clinic and is on the transplant list. Patient states that he has been in bed all day because he has not been feeling well. Denies any specific symptoms including any chest pain, shortness of breath, or abdominal pain. He is alert oriented to person, place, time and situation. Related Data Allergies Allergy/AdvReac Type Severity Reaction Status Date / Time No Known Allergies Allergy Verified 05/19/25 20:48 Review of Systems Review of Systems: All systems are reviewed and are negative unless stated otherwise in the HPI. Exam Narrative: General: Alert, awake, afebrile, in no acute distress, pale. HEENT: PERRL, no rhinorrhea, no post nasal drip, oropharynx clear. Neck: Trachea midline, no JVD, no lymphadenopathy. Cardiovascular: Regular rate and rhythm, no murmurs, rubs or gallops, no peripheral edema. Respiratory: Clear to auscultation bilaterally, no tachypnea, no wheezing, no rhonchi, no rubs, no respiratory distress. Abdomen: Hard, nontender, distended, no rebound, no guarding, no peritoneal signs. Musculoskeletal: No joint swelling or deformity, normal muscle tone. Skin: No rashes or petechia, no signs of infection, jaundiced. Psychiatric: Alert and oriented, normal behavior and judgment for situation. Neurological: Alert and oriented to person, place, and time. Follows all commands. No focal deficits, speech is clear and fluent. Course Vital Signs Vital signs: Vital Signs Temperature 98.6 F 05/19/25 20:32 Pulse Rate 78 05/19/25 20:32 Respiratory Rate 14 05/19/25 20:32 Blood Pressure 102/58 L 05/19/25 20:32 Pulse Oximetry 99 05/19/25 20:32 Oxygen Delivery Room Air 05/19/25 20:32 Temperature 98.5 F 05/20/25 02:39 Pulse Rate 66 05/20/25 03:13 Respiratory Rate 11 L 05/20/25 03:13 Blood Pressure 97/61 L 05/20/25 03:13 Pulse Oximetry 100 05/20/25 03:13 Oxygen Delivery Room Air 05/19/25 20:32 Medical Decision Making MDM Narrative Medical decision making narrative: The patient was evaluated by myself in the emergency department. History is obtained from patient who is an independent historian and physical exam was performed. External medical records were reviewed at this time. IV was established and pertinent tests were ordered. Patient was administered 4 mg of IV Zofran, started on a Protonix drip and octreotide drip. Administered 1 g of IV Rocephin. No IV fluids were administered at this time due to concern for patient's fluid overload and ascites. Laboratory results obtained revealing initial hemoglobin of 9.5. In the emergency department, patient has had 2 episodes of hematemesis. Repeat hemoglobin 2 hours later to drop to 6.8. At this transfusion of 2 units of packed RBC was initiated after both verbal and written consent was obtained from the patient. Patient's lactic acid was [place] 3[place] [address], PTT 26, INR 2.5. Imaging studies obtained included CT abdomen and pelvis with IV contrast which was independently interpreted by me revealing: STAT RAD REPORT: Cirrhosis and large ascites with volume overload, no evidence of bowel obstruction, distended gallbladder with stones and possible sludge versus potentially enhancing soft tissue internal lumen mass. Differential diagnosis considerations include cholecystitis, ascites, SBP, variceal bleed, upper versus lower GI bleed, hypovolemic shock. Comorbidities impacting this visit include end-stage liver disease with cirrhosis and history of esophageal varices. I have evaluated and discussed social determinants of health with the patient that could potentially impact subsequent diagnosis and treatment plans. On repeat assessment of the patient, reevaluation revealed that the patient is doing well and is in no acute distress. Patient symptoms have improved since he arrived to our emergency department. Repeat vital signs were all reviewed and noted to be stable. Differential diagnosis and treatment plan were discussed with the patient at bedside. Patient agrees with discussion and after shared medical decision making agrees with transfer. All questions were answered to the patient's satisfaction. [facility] transfer line was contacted at 2300 and transfer was initiated. It did speak with the on-call supply chain design manager Dr. Campbell at [phone] who informed me that patient is placed on there wait list for a bed as they do not currently have a bed. He is prioritized to hopefully obtain a bed within the next 24 hours. He cannot make this patient in ER to ER since we have GI on-call. He recommends also consult in our supply chain design manager in case the patient becomes unstable while waiting for a bed. Also per his recommendation patient was administered 50 g of 25% albumin and will be administered an additional 25 g of 25% albumin 4 hours later. At this time and discussed the case Dr. Rossi at 2330 and he agreed to evaluate the patient if he becomes unstable. Patient's current blood pressure is 102/62 with a map of 75 after 2 units of packed RBCs. Critical care time of 87 minutes, exclusive of separately performed procedures, necessary for treating or preventing eminent or life-threatening deterioration of patient's condition of massive upper GI bleed requiring transfusion of multiple units of packed RBCs, focused on patient care provided personally by me and time spent during initial evaluation, physical examination, ordering and performing treatments and interventions, ordering and reviewing laboratory studies, ordering and reviewing radiographic studies, re-evaluation of the patient's condition, evaluation of the patient's response to treatment, and discussion of patient case with multiple consultants. Vital Signs Vital Signs: Vital Signs Temperature 98.6 F 05/19/25 20:32 Pulse Rate 78 05/19/25 20:32 Respiratory Rate 14 05/19/25 20:32 Blood Pressure 102/58 L 05/19/25 20:32 Pulse Oximetry 99 05/19/25 20:32 Oxygen Delivery Room Air 05/19/25 20:32 Temperature 98.5 F 05/20/25 02:39 Pulse Rate 66 05/20/25 03:13 Respiratory Rate 11 L 05/20/25 03:13 Blood Pressure 97/61 L 05/20/25 03:13 Pulse Oximetry 100 05/20/25 03:13 Oxygen Delivery Room Air 05/19/25 20:32 Lab Data 05/20/25 04:49 05/19/25 21:04 Labs: Lab Results 05/19/25 05/19/25 05/19/25 Range/Units 21:04 21:14 21:15 WBC 9.6 (4.5-10.0) K/mm3 RBC 3.07 L (4.6-6.20) M/mm3 Hgb 9.5 L (14.0-18.0) g/dL Hct 29.3 L (42.0-52.0) % MCV 95.4 (80-100) fl MCH 30.9 (26-34) pg MCHC 32.4 (32-36) g/dl RDW 20.7 H (11.5-14.5) % Plt Count 106 L (150-375) k/mm3 MPV 10.8 H (7.4-10.4) fl Immature Gran % (Auto) 0.3 (0-0.5) % Neut % (Auto) 88.0 H (45.5-73.1) % Lymph % (Auto) 4.8 L (18.3-44.2) % Crosby % (Auto) 6.3 (2.6-8.5) % Eos % (Auto) 0.2 (0-4.4) % Baso % (Auto) 0.4 (0.2-1.2) % Lymph # (Auto) 0.46 L (0.9-3.2) K/mm3 Crosby # (Auto) 0.6 (0.1-0.6) K/mm3 Eos # (Auto) 0.0 (0-0.3) K/mm3 Baso # (Auto) 0.0 (0.0-0.1) K/mm3 Abs Immat Gran (auto) 0.03 (0.00-0.031) K/mm3 Absolute Neuts (auto) 8.5 H (1.3-6.7) K/mm3 Absolute Nucleated RBC 0.000 (0.0-0.012) K/mm3 Band Neutrophils % Not Reportable Nucleated RBC % 0.0 (0.0-0.2) % Platelet Estimate Decreased (Adequate) Schistocytes None seen PT 26.0 H (11.1-14.7) Seconds INR 2.5 APTT 37.3 H (22.3-36.8) Seconds Sodium 135 L (137-145) mmol/L Potassium 4.3 (3.4-5.0) mmol/L Chloride 104 (98-107) mmol/L Carbon Dioxide 22 (22-30) mmol/L Anion Gap 9 (4-12) mmol/L BUN 9 (9-20) mg/dL Creatinine 0.60 L (0.7-1.3) mg/dL Estim Creat Clear Calc 125 ml/min Estimated GFR > 60 (59 - ) Glucose 193 H (65-110) mg/dL Lactic Acid 3.2 H (0.7-2.0) mmol/L Calcium 8.2 L (8.4-10.2) mg/dL Magnesium 1.7 (1.6-2.3) mg/dL Total Bilirubin 7.0 H (0.2-1.3) mg/dL AST 113 H (17-59) U/L ALT 45 (6-50) U/L Alkaline Phosphatase 116 (38-126) U/L Ammonia 12 (9-30) umol/L Total Protein 7.8 (6.3-8.2) g/dL Albumin 3.2 L (3.5-5.1) g/dL Lipase 06886 H (23-300) U/L Ethyl Alcohol < 10 (<10) mg/dL Blood Type B Positive Antibody Screen Negative Crossmatch See Detail 05/19/25 05/19/25 05/20/25 Range/Units 23:06 23:20 04:49 WBC (4.5-10.0) K/mm3 RBC (4.6-6.20) M/mm3 Hgb 6.8 L* 7.2 L (14.0-18.0) g/dL Hct 20.5 L* 21.7 L (42.0-52.0) % MCV (80-100) fl MCH (26-34) pg MCHC (32-36) g/dl RDW (11.5-14.5) % Plt Count (150-375) k/mm3 MPV (7.4-10.4) fl Immature Gran % (Auto) (0-0.5) % Neut % (Auto) (45.5-73.1) % Lymph % (Auto) (18.3-44.2) % Crosby % (Auto) (2.6-8.5) % Eos % (Auto) (0-4.4) % Baso % (Auto) (0.2-1.2) % Lymph # (Auto) (0.9-3.2) K/mm3 Crosby # (Auto) (0.1-0.6) K/mm3 Eos # (Auto) (0-0.3) K/mm3 Baso # (Auto) (0.0-0.1) K/mm3 Abs Immat Gran (auto) (0.00-0.031) K/mm3 Absolute Neuts (auto) (1.3-6.7) K/mm3 Absolute Nucleated RBC (0.0-0.012) K/mm3 Band Neutrophils % Nucleated RBC % (0.0-0.2) % Platelet Estimate (Adequate) Schistocytes PT (11.1-14.7) Seconds INR APTT (22.3-36.8) Seconds Sodium (137-145) mmol/L Potassium (3.4-5.0) mmol/L Chloride (98-107) mmol/L Carbon Dioxide (22-30) mmol/L Anion Gap (4-12) mmol/L BUN (9-20) mg/dL Creatinine (0.7-1.3) mg/dL Estim Creat Clear Calc ml/min Estimated GFR (59 - ) Glucose (65-110) mg/dL Lactic Acid 3.1 H (0.7-2.0) mmol/L Calcium (8.4-10.2) mg/dL Magnesium (1.6-2.3) mg/dL Total Bilirubin (0.2-1.3) mg/dL AST (17-59) U/L ALT (6-50) U/L Alkaline Phosphatase (38-126) U/L Ammonia (9-30) umol/L Total Protein (6.3-8.2) g/dL Albumin (3.5-5.1) g/dL Lipase (23-300) U/L Ethyl Alcohol (<10) mg/dL Blood Type Antibody Screen Crossmatch Critical Care Time Critical Care Time Critical Care Time: Yes Total Critical Care Time: 87 (Please refer to MDM for attestation) Discharge Plan Discharge Clinical Impression: Esophageal varices, Acute upper GI bleeding, Anemia due to blood loss, End stage liver disease Patient Disposition: Acute Care Hospital Condition: Stable Patient Language: Puerto Rican Follow-up/Referrals: PHYSICIAN NOT ON STAFF,NONSTAFF [Primary Care Provider] -
[2025-05-20] MEDS: TUBING, BLOOD SET 1 EACH XX ×2 (02:07→02:08)
[2025-05-20] MEDS: SODIUM CHLORIDE 0.9% IV 250 ML 30 ML IV CONT (02:08)
[2025-05-20] MEDS: SODIUM CHLORIDE 0.9% IV 250 ML 999 ML (02:10)
[2025-05-20] MEDS: cefTRIAXone 1 GM in SODIUM CHLORIDE 0.9% IV 50 ML 100 ML IVPB (02:58)
[2025-05-20] MEDS: ALBUMIN HUMAN 25% 25 GM/100 ML 100 ML IVPB (04:44)
[2025-05-20 04:53] LABS: Hematocrit 21.7 % (42.0-52.0); Hemoglobin 7.2 g/dL (14.0-18.0)
[2025-05-20] MEDS: PANTOPRAZOLE SODIUM IV 80 MG in SODIUM CHLORIDE 0.9% IV 500 ML 50 MG IV CONT (08:05)
--- NOTE | 2025-05-20 08:49 | PC.NURSE ---
2322 pt accepted at [facility]. On bed waitlist
--- NOTE | 2025-05-20 08:49 | PC.NURSE ---
0883 pt remains on bed wait list
[2025-05-20 10:50] LABS: Hematocrit 22.8 % (42.0-52.0); Hemoglobin 7.1 g/dL (14.0-18.0)
--- NOTE | 2025-05-20 10:56 | PC.NURSE ---
SPOKE WITH NIKKI FROM GI LAB. PT WILL BE AN ADD ON FOR EGD.
--- NOTE | 2025-05-20 13:11 | PM.IMHP ---
H&P: HPI History of Present Illness Date/Time: 05/20/25 13:11 Chief Complaint: Bloody Emesis Narrative: 50 y/o M with PMH of alcohol abuse, cirrhosis w/liver failure, and esophageal varices presents here with bloody emesis. The patient presents here from [facility] via EMS for further evaluation of bloody emesis. HPI obtained through chart review and patient's next of kin. The patient had one episode of bloody emesis this morning, described as bright red, which prompted a call to EMS. While in route to the ER the patient had a second episode of vomiting blood. He has a PMH significant for liver failure secondary to ETOH and esophageal varices. He follows with hepatology at [facility], currently on transplant list. Per the patient's brother, Rafael Ochoa, his next of kin the patient [facility] recently [facility] an [facility]ices bleed. He underwent a EGD at that time where he had varices banded. During this admission he elected to be DNR. Initial VS: 98.6F, HR 78, RR 14, 102/58, 99% RA. ED workup: no leukocytosis, Hgb 9.5 (repeat 6.8), INR 2.5, lactic 3.2, total bili 7, lipase 37850, ETOH negative. CT of the abd pelvis showed cirrhotic liver w/portal HTN/splenomegaly/varices in the right abdomen/mod to large ascites, small to mod umbilical hernia, 2.1 cm hypodense lesion left hepatic lobe, markedly distended GB, small right and minimal left pleural effusions. Review of Systems Review of Systems: ROS unobtainable: Yes unobtainable due to medical condition [facility] Past Medical History Medical History (Updated 05/20/25 @ 17:09 by Jackie Youngblood, BELT CONVEYOR DRIER) Coagulopathy Ascites Esophageal varices with bleeding Cirrhosis, alcoholic Acute blood loss anemia GIB (gastrointestinal bleeding) Esophageal varices Anemia due to blood loss Acute upper GI bleeding End stage liver disease Meds Home Medications and Allergies Allergies Allergy/AdvReac Type Severity Reaction Status Date / Time No Known Allergies Allergy Verified 05/20/25 14:17 Vital Signs Vital Signs - 24 hr 05/19/25 20:32 05/19/25 23:40 05/19/25 23:57 Temperature 98.6 F 99.6 F Pulse Rate 78 75 70 Respiratory Rate 14 14 12 Blood Pressure 102/58 L 94/57 L 98/62 L Pulse Oximetry 99 96 96 Oxygen Delivery Room Air 05/20/25 00:00 05/20/25 00:00 05/20/25 00:05 Temperature 98.6 F Pulse Rate 72 72 71 Respiratory Rate 13 13 13 Blood Pressure 97/58 L 97/58 L 93/60 L Pulse Oximetry 96 96 96 Oxygen Delivery 05/20/25 00:15 05/20/25 00:37 05/20/25 00:45 Temperature 98.2 F Pulse Rate 68 70 69 Respiratory Rate 13 13 11 L Blood Pressure 104/61 102/65 97/61 L Pulse Oximetry 96 100 98 Oxygen Delivery 05/20/25 00:54 05/20/25 01:00 05/20/25 01:15 Temperature 98.3 F Pulse Rate 68 68 66 Respiratory Rate 13 12 12 Blood Pressure 99/60 L 100/61 89/56 L Pulse Oximetry 96 96 96 Oxygen Delivery 05/20/25 01:30 05/20/25 01:45 05/20/25 01:54 Temperature 98.3 F Pulse Rate 66 68 64 Respiratory Rate 12 12 14 Blood Pressure 109/61 100/60 103/60 Pulse Oximetry 97 100 100 Oxygen Delivery 05/20/25 02:00 05/20/25 02:17 05/20/25 02:39 Temperature 98.5 F Pulse Rate 65 60 63 Respiratory Rate 13 12 12 Blood Pressure 103/60 104/59 L 96/63 L Pulse Oximetry 100 97 100 Oxygen Delivery 05/20/25 03:13 05/20/25 07:30 05/20/25 08:07 Temperature Pulse Rate 66 63 61 Respiratory Rate 11 L 11 L 12 Blood Pressure 97/61 L 98/60 L 104/55 L Pulse Oximetry 100 100 100 Oxygen Delivery 05/20/25 08:30 05/20/25 09:00 05/20/25 09:12 Temperature Pulse Rate 61 61 61 Respiratory Rate 10 L 11 L 11 L Blood Pressure 99/60 L 85/54 L 94/60 L Pulse Oximetry 100 100 99 Oxygen Delivery 05/20/25 09:30 05/20/25 10:30 05/20/25 11:00 Temperature Pulse Rate 62 63 64 Respiratory Rate 10 L 11 L 11 L Blood Pressure 94/59 L 94/59 L 94/66 L Pulse Oximetry 100 100 100 Oxygen Delivery Exam Const: General: comfortable and no acute distress Other: , male, ill-appearing, intubated HENMT: Face/Nose/Sinus: Normal nares present Mouth: Yes moist mucous membranes Eyes: General: appearance normal, both eyes and all related structures Sclera: sclerae normal Pupils: Equal, round and reactive pupils present (4 mm bilaterally) Resp: Effort & Inspection: normal respiratory effort Other: Diffuse crackles, no wheezing. Intubated and tolerating vent well. Cardio: Rate: regular rate Rhythm: regular rhythm Other: S1-S2 present without murmur, rub, ectopy GI: Other: Abdomen distended, soft. Umbilical hernia noted. Normoactive bowel sounds in all quadrants. + ascites Skin: Other: Slightly jaundiced appearance, small areas of ecchymosis to his extremities in various stages of healing and no particular pattern. Neuro: Other: Intubated. PERRLA. Extrem: General: normal to inspection Psych: Other: Unable to assess, intubated H&P: Results Labs Labs: Short CBC 05/19/25 05/19/25 05/20/25 Range/Units 21:04 23:06 04:49 WBC 9.6 (4.5-10.0) K/mm3 Hgb 9.5 L 6.8 L* 7.2 L (14.0-18.0) g/dL Hct 29.3 L 20.5 L* 21.7 L (42.0-52.0) % Plt Count 106 L (150-375) k/mm3 05/20/25 Range/Units 10:40 WBC (4.5-10.0) K/mm3 Hgb 7.1 L (14.0-18.0) g/dL Hct 22.8 L (42.0-52.0) % Plt Count (150-375) k/mm3 BMP 05/19/25 21:04 Sodium 135 L Potassium 4.3 Chloride 104 Carbon Dioxide 22 BUN 9 Creatinine 0.60 L Glucose 193 H Calcium 8.2 L Liver Function 05/19/25 Range/Units 21:04 Total Bilirubin 7.0 H (0.2-1.3) mg/dL AST 113 H (17-59) U/L ALT 45 (6-50) U/L Alkaline Phosphatase 116 (38-126) U/L Albumin 3.2 L (3.5-5.1) g/dL Assessment and Plan Assessment and plan (1) Esophageal varices with bleeding: Qualifiers: Esophageal varices type: secondary Qualified Code(s): I85.11 - Secondary esophageal varices with bleeding Code(s): I85.01 - Esophageal varices with bleeding Status: Acute Assessment and Plan: - hx of cirrhosis secondary to ETOH w/esophageal varcies - 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 3rd unit infusing. - plan for EGD on 05/20 post EGD -> banded 5 varices, one previous that had previously been clipped that was unable to be banded and is currently actively bleeding. patient was then intubated on 05/20 - trend H&H, transfuse if <7 - started on pantoprazole and octreotide, continued - ceftriaxone started on 05/20, continued - GI consulted - awaiting bed at [facility], patient sees Advertising Operations Manager here. cancel transfer, see note below. (2) Cirrhosis, alcoholic: Qualifiers: Ascites presence: with ascites Qualified Code(s): K70.31 - Alcoholic cirrhosis of liver with ascites Code(s): K70.30 - Alcoholic cirrhosis of liver without ascites Status: Acute Assessment and Plan: - total bilirubin 7.0, AST 113, ALT 45, alk-phos 116, lipase 66716 - follows with hepatology at [facility], awaiting transfer - started on ceftriaxone on 05/20, continued - GI consulted - ETOH negative on 05/19 - MELD score: 25, 19 per GI (3) Coagulopathy: Code(s): D68.9 - Coagulation defect, unspecified Status: Acute Assessment and Plan: - PT 26, INR 2.5, PTT 37.3 - secondary to cirrhosis Plan Patient's brother Rafael Ochoa (next of kin) at the bedside. Brother updated on patient's condition and findings during the EGD. He reports the patient elected to be DNR at [facility] during his most recent admission for an upper GI bleed/esophageal varices. He reports during this visit he had varices banded. He would like the patient to be made DNR/DNI and comfort measures. He would like to cancel the transfer to [facility]. He would also like the patient considered for organ donation. family medicine resident to contact [facility]. Patient currently has 1u PRBC transfusing, will complete this transfusion and then brother would like no more blood products. [facility] contacted to cancel transfer at 16:50. Case Work Aide notified of changes. Diet: NPO GI Prophylaxis: PPI gtt DVT Prophylaxis: SCDs IV fluids: 75 mL/hr (octreotide/PPI gtts) Lines/Tubes: peripheral IV Code Status: DNR, Comfort Care Quality VTE Prophylaxis VTE prophylaxis: mechanical ordered Critical Care Time: I personally spent 40 minutes of direct patient care including (but not limited to) the physical examination, decision-making, bedside evaluation, review of medical records, review of labs and imaging, discussion with nursing staff and other providers for collaborative, critical care management of this patient. Hospitalist MIPS Advance Care Plan I have confirmed that the patient's Advanced Care Plan is present, code status is documented, or surrogate decision maker is listed in patient medical record.: Yes Medication Reconciliation I have utilized all available resources to obtain, update and review the patients current medications (includes all prescriptions, OTC, herbals, cannabis, and nutritional supplements).: Yes
[2025-05-20] MEDS: LACTATED RINGERS 1,000 ML 150 ML IV CONT ×2 (14:16→16:25)
--- NOTE | 2025-05-20 14:53 | P.PNAN_ITS ---
Anes - Initial Pre Proc Eval Procedure: Operation Date: 05/20/25 16:00 Proposed Procedures p Esophagogastroduodenoscopy - Miguel Garcia MD Date/Time: 05/20/25 14:53 Surgeon: Betsy Thompson MD Pre Op Diagnosis: UGIB Patient Data Age: 50 Gender: M Height: 1.75 m Weight: 84.4 kg Last Vital Signs Temp 36.6 C 05/20/25 14:19 Pulse 61 05/20/25 14:19 Resp 20 05/20/25 14:19 BP 89/55 L 05/20/25 14:19 Pulse Ox 97 05/20/25 14:19 O2 Del Method Room Air 05/20/25 14:19 Allergies Allergy/AdvReac Type Severity Reaction Status Date / Time No Known Allergies Allergy Verified 05/20/25 14:17 Laboratory Tests 05/19/25 05/19/25 05/19/25 21:04 21:14 21:15 WBC 9.6 K/mm3 (4.5-10.0) RBC 3.07 L M/mm3 (4.6-6.20) Hgb 9.5 L g/dL (14.0-18.0) Hct 29.3 L % (42.0-52.0) MCV 95.4 fl (80-100) MCH 30.9 pg (26-34) MCHC 32.4 g/dl (32-36) RDW 20.7 H % (11.5-14.5) Plt Count 106 L k/mm3 (150-375) MPV 10.8 H fl (7.4-10.4) Immature Gran % (Auto) 0.3 % (0-0.5) Neut % (Auto) 88.0 H % (45.5-73.1) Lymph % (Auto) 4.8 L % (18.3-44.2) [place] % (Auto) 6.3 % (2.6-8.5) Eos % (Auto) 0.2 % (0-4.4) Baso % (Auto) 0.4 % (0.2-1.2) Lymph # (Auto) 0.46 L K/mm3 (0.9-3.2) [place] # (Auto) 0.6 K/mm3 (0.1-0.6) Eos # (Auto) 0.0 K/mm3 (0-0.3) Baso # (Auto) 0.0 K/mm3 (0.0-0.1) Abs Immat Gran (auto) 0.03 K/mm3 (0.00-0.031) Absolute Neuts (auto) 8.5 H K/mm3 (1.3-6.7) Absolute Nucleated RBC 0.000 K/mm3 (0.0-0.012) Band Neutrophils % Not Reportable Nucleated RBC % 0.0 % (0.0-0.2) Platelet Estimate Decreased (Adequate) Schistocytes None seen PT 26.0 H Seconds (11.1-14.7) INR 2.5 APTT 37.3 H Seconds (22.3-36.8) Sodium 135 L mmol/L (137-145) Potassium 4.3 mmol/L (3.4-5.0) Chloride 104 mmol/L (98-107) Carbon Dioxide 22 mmol/L (22-30) Anion Gap 9 mmol/L (4-12) BUN 9 mg/dL (9-20) Creatinine 0.60 L mg/dL (0.7-1.3) Estim Creat Clear Calc 125 ml/min Estimated GFR > 60 (59 - ) Glucose 193 H mg/dL (65-110) POC Capillary Glucose Lactic Acid 3.2 H mmol/L (0.7-2.0) Calcium 8.2 L mg/dL (8.4-10.2) Magnesium 1.7 mg/dL (1.6-2.3) Total Bilirubin 7.0 H mg/dL (0.2-1.3) AST 113 H U/L (17-59) ALT 45 U/L (6-50) Alkaline Phosphatase 116 U/L (38-126) Ammonia 12 umol/L (9-30) Total Protein 7.8 g/dL (6.3-8.2) Albumin 3.2 L g/dL (3.5-5.1) Lipase 70166 H U/L (23-300) Ethyl Alcohol < 10 mg/dL (<10) Blood Type B Positive Antibody Screen Negative Crossmatch See Detail 05/19/25 05/19/25 05/20/25 23:06 23:20 04:49 WBC RBC Hgb 6.8 L* g/dL 7.2 L g/dL (14.0-18.0) (14.0-18.0) Hct 20.5 L* % 21.7 L % (42.0-52.0) (42.0-52.0) MCV MCH MCHC RDW Plt Count MPV Immature Gran % (Auto) Neut % (Auto) Lymph % (Auto) [place] % (Auto) Eos % (Auto) Baso % (Auto) Lymph # (Auto) [place] # (Auto) Eos # (Auto) Baso # (Auto) Abs Immat Gran (auto) Absolute Neuts (auto) Absolute Nucleated RBC Band Neutrophils % Nucleated RBC % Platelet Estimate Schistocytes PT INR APTT Sodium Potassium Chloride Carbon Dioxide Anion Gap BUN Creatinine Estim Creat Clear Calc Estimated GFR Glucose POC Capillary Glucose Lactic Acid 3.1 H mmol/L (0.7-2.0) Calcium Magnesium Total Bilirubin AST ALT Alkaline Phosphatase Ammonia Total Protein Albumin Lipase Ethyl Alcohol Blood Type Antibody Screen Crossmatch 05/20/25 05/20/25 10:40 14:24 WBC RBC Hgb 7.1 L g/dL (14.0-18.0) Hct 22.8 L % (42.0-52.0) MCV MCH MCHC RDW Plt Count MPV Immature Gran % (Auto) Neut % (Auto) Lymph % (Auto) [place] % (Auto) Eos % (Auto) Baso % (Auto) Lymph # (Auto) [place] # (Auto) Eos # (Auto) Baso # (Auto) Abs Immat Gran (auto) Absolute Neuts (auto) Absolute Nucleated RBC Band Neutrophils % Nucleated RBC % Platelet Estimate Schistocytes PT INR APTT Sodium Potassium Chloride Carbon Dioxide Anion Gap BUN Creatinine Estim Creat Clear Calc Estimated GFR Glucose POC Capillary Glucose 135 H mg/dl (65-105) Lactic Acid Calcium Magnesium Total Bilirubin AST ALT Alkaline Phosphatase Ammonia Total Protein Albumin Lipase Ethyl Alcohol Blood Type Antibody Screen Crossmatch Patient hx anesthesia problems: none Family hx anesthesia problems: none Results Review: All pre-operative results and documents have been reviewed as part of the pre- operative evaluation. [facility] Past Medical History Medical History (Updated 05/20/25 @ 14:53 by Jose Thompson MD) Esophageal varices Anemia due to blood loss Acute upper GI bleeding End stage liver disease Anes - Eval Final PreProcedure Day of Procedure 05/20/25 14:53 Patient weight: overweight Heart: regular rate and rhythm Lungs: clear to auscultation Airway: Mallampati scale class II and special considerations poor dentition Neurological: alert and oriented Last oral intake: >/= 8 hours ASA classification: IV Emergent: yes Anesthetic plan: proceed Anesthesia type and monitoring: general ETT and standard monitoring Results Review: All pre-operative results and documents have been reviewed as part of the pre- operative evaluation. Informed Consent: The patient's anesthetic plan and its attendant risks and benefits were discussed with the patient/family/POA. Questions were solicited and answers provided to the satisfaction of the patient/family/POA.
--- NOTE | 2025-05-20 14:57 | SUR.PREOP ---
1455 Patient resting comfortably, denies any nausea or abdominal pain. B/P 87/56 HR 62, Resp 18, PO 100 Dr. Laws into see patient at 1457.
--- NOTE | 2025-05-20 15:01 | P.CONGI_ITS ---
Assessment and Plan Assessment and plan (1) GIB (gastrointestinal bleeding): Code(s): K92.2 - Gastrointestinal hemorrhage, unspecified Status: Acute Assessment and Plan: will proceed with urgent EGD, per history he had varices in the past however I could not get a good history from him, he does not even remember if he even had EGD, he could not give me a good answer continue with iv octreotide drip, antibiotics, ppi more recommendations after egd but most likely will need to transfer to [facility] for consideration of TIPS if unable to control bleeding, he is quite sick and MELD 19 which makes tips intervention more challenging but probably is only option (2) Acute blood loss anemia: Code(s): D62 - Acute posthemorrhagic anemia Status: Acute Assessment and Plan: transfuse to keep hgb>7 also try to correct coagulopathy (3) Cirrhosis, alcoholic: Code(s): K70.30 - Alcoholic cirrhosis of liver without ascites Status: Acute Assessment and Plan: meld 19 he is decompensated when more stable also consider paracentesis to assess if sbp on antibiotics now (4) Esophageal varices with bleeding: Code(s): I85.01 - Esophageal varices with bleeding Status: Acute Assessment and Plan: urgent egd (5) Ascites: Code(s): R18.8 - Other ascites Status: Acute (6) Coagulopathy: Code(s): D68.9 - Coagulation defect, unspecified Status: Acute GI Consult Note Consult date/time: 05/20/25 15:01 Reason for consult: gib, cirrhosis HPI: Brodie Ochoa is a 50 year old male with alcohol abuse, cirrhosis, and esophageal varices presents here with bloody emesis. He is poor historian. He came from [facility] via EMS for further evaluation of bloody emesis. He had pme episode of bloody emesis this morning, described as bright red also dark stools, in route to the ER the patient had a second episode of vomiting blood. He says that has not had alcohol since [facility]. He follows with hepatology at [facility], currently on transplant list. ED workup: no leukocytosis, Hgb 9.5 (repeat 6.8), INR 2.5, lactic 3.2, total bili 7, lipase 14528, ETOH negative. CT of the abd pelvis showed cirrhotic liver w/portal HTN/splenomegaly/varices in the right abdomen/mod to large ascites, small to mod umbilical hernia, 2.1 cm hypodense lesion left hepatic lobe, markedly distended GB. He is in ER waiting for bed ([facility] accepted transfer but no bed available). He thinks that had EGD last year but was unsure. Review of Systems 2 Constitutional: Constitutional: Reports weakness Eyes: Eyes: Denies blurry vision ENT: Reports Normal hearing present Cardiovascular: Cardiovascular: Denies chest pain Respiratory: Respiratory: Denies cough Gastrointestinal: Gastrointestinal: Reports melena and Reports hematemesis Genitourinary: Genitourinary: Denies dysuria Musculoskeletal: Musculoskeletal: Denies neck pain Integumentary/Breasts: Skin/Breast: Denies rash Neurologic: Denies Abnormal speech present Psychiatric: Psychiatric: Denies behavioral changes [facility] Past Medical History Medical History (Updated 05/20/25 @ 15:56 by Miguel Garcia MD) Coagulopathy Ascites Esophageal varices with bleeding Cirrhosis, alcoholic Acute blood loss anemia GIB (gastrointestinal bleeding) Esophageal varices Anemia due to blood loss Acute upper GI bleeding End stage liver disease Meds Home Medications and Allergies Allergies Allergy/AdvReac Type Severity Reaction Status Date / Time No Known Allergies Allergy Verified 05/20/25 14:17 Vital Signs Vital Signs - 24 hr 05/19/25 20:32 05/19/25 23:40 05/19/25 23:57 Temperature 98.6 F 99.6 F Pulse Rate 78 75 70 Respiratory Rate 14 14 12 Blood Pressure 102/58 L 94/57 L 98/62 L Pulse Oximetry 99 96 96 Oxygen Delivery Room Air 05/20/25 00:00 05/20/25 00:00 05/20/25 00:05 Temperature 98.6 F Pulse Rate 72 72 71 Respiratory Rate 13 13 13 Blood Pressure 97/58 L 97/58 L 93/60 L Pulse Oximetry 96 96 96 Oxygen Delivery 05/20/25 00:15 05/20/25 00:37 05/20/25 00:45 Temperature 98.2 F Pulse Rate 68 70 69 Respiratory Rate 13 13 11 L Blood Pressure 104/61 102/65 97/61 L Pulse Oximetry 96 100 98 Oxygen Delivery 05/20/25 00:54 05/20/25 01:00 05/20/25 01:15 Temperature 98.3 F Pulse Rate 68 68 66 Respiratory Rate 13 12 12 Blood Pressure 99/60 L 100/61 89/56 L Pulse Oximetry 96 96 96 Oxygen Delivery 05/20/25 01:30 05/20/25 01:45 05/20/25 01:54 Temperature 98.3 F Pulse Rate 66 68 64 Respiratory Rate 12 12 14 Blood Pressure 109/61 100/60 103/60 Pulse Oximetry 97 100 100 Oxygen Delivery 05/20/25 02:00 05/20/25 02:17 05/20/25 02:39 Temperature 98.5 F Pulse Rate 65 60 63 Respiratory Rate 13 12 12 Blood Pressure 103/60 104/59 L 96/63 L Pulse Oximetry 100 97 100 Oxygen Delivery 05/20/25 03:13 05/20/25 07:30 05/20/25 08:07 Temperature Pulse Rate 66 63 61 Respiratory Rate 11 L 11 L 12 Blood Pressure 97/61 L 98/60 L 104/55 L Pulse Oximetry 100 100 100 Oxygen Delivery 05/20/25 08:30 05/20/25 09:00 05/20/25 09:12 Temperature Pulse Rate 61 61 61 Respiratory Rate 10 L 11 L 11 L Blood Pressure 99/60 L 85/54 L 94/60 L Pulse Oximetry 100 100 99 Oxygen Delivery 05/20/25 09:30 05/20/25 10:30 05/20/25 11:00 Temperature Pulse Rate 62 63 64 Respiratory Rate 10 L 11 L 11 L Blood Pressure 94/59 L 94/59 L 94/66 L Pulse Oximetry 100 100 100 Oxygen Delivery 05/20/25 12:00 05/20/25 12:30 05/20/25 13:15 Temperature Pulse Rate 62 64 64 Respiratory Rate 22 H 13 14 Blood Pressure 91/60 L 92/60 L 95/63 L Pulse Oximetry 100 99 100 Oxygen Delivery 05/20/25 14:19 Temperature 97.9 F Pulse Rate 61 Respiratory Rate 20 Blood Pressure 89/55 L Pulse Oximetry 97 Oxygen Delivery Room Air Exam 2 Const: Other: ill, noted dried blood in mouth HENMT: Face/Nose/Sinus: Normal nares present Eyes: Other: icteric sclerae Neck: Neck: supple Resp: Effort & Inspection: normal respiratory effort Cardio: Rate: regular rate GI: GI Palp: Yes Soft to palpation and No Tenderness to palpation present (GI) Other: + large umbilical hernia, no pain + fluid wave c/w ascites Skin: Other: + spider angioma in chest Neuro: Speech: normal speech Motor exam (neuro): 5/5 motor strength present throughout Extrem: General: normal to inspection Psych: Attitude: not belligerent Results Labs 05/20/25 10:40 05/19/25 21:04 Labs: Short CBC 05/19/25 05/19/25 05/20/25 Range/Units 21:04 23:06 04:49 WBC 9.6 (4.5-10.0) K/mm3 Hgb 9.5 L 6.8 L* 7.2 L (14.0-18.0) g/dL Hct 29.3 L 20.5 L* 21.7 L (42.0-52.0) % Plt Count 106 L (150-375) k/mm3 05/20/25 Range/Units 10:40 WBC (4.5-10.0) K/mm3 Hgb 7.1 L (14.0-18.0) g/dL Hct 22.8 L (42.0-52.0) % Plt Count (150-375) k/mm3 [facility] 05/19/25 21:04 Sodium 135 L Potassium 4.3 Chloride 104 Carbon Dioxide 22 BUN 9 Creatinine 0.60 L Glucose 193 H Calcium 8.2 L Liver Function 05/19/25 Range/Units 21:04 Total Bilirubin 7.0 H (0.2-1.3) mg/dL AST 113 H (17-59) U/L ALT 45 (6-50) U/L Alkaline Phosphatase 116 (38-126) U/L Albumin 3.2 L (3.5-5.1) g/dL
[2025-05-20] MEDS: MIDAZOLAM 100MG/NS 100ML(*CRX) 100 MG/100 ML BAG IV CONT (16:14)
[2025-05-20] MEDS: FENTANYL 2,500MCG/NS250ML(*CRX 2,500 MCG/250 ML BAG IV CONT (16:14)
--- NOTE | 2025-05-20 16:50 | PC.NURSE ---
At approximately 1600 patient arrived to the floor via stretcher from the GI lab. Intubated and sedated. Nursing and anesthesia at the bedside. Blood products brought up and started by GI lab nurses. Other medications infusing as ordered (see eMAR). signs sales representative placed on and functioning at this time. Sedation medication started as ordered. Bilateral wrist restraints placed as ordered for safety precautions. Family member updated and brought into the patient room. Provider at bedside to talk with family about plan of care.
--- NOTE | 2025-05-20 17:27 | PC.NURSE ---
Rex from [facility] called and stated that this patient is not candidate for organ donation.
[2025-05-20] MEDS: LORazepam INJ (*CRX) 2 MG/ML VIAL IV PUSH (17:34)
[2025-05-20] MEDS: MORPHINE SULFATE INJ (*CRX) 10 MG/ML AMP 5 MG IV PUSH (17:35)
--- NOTE | 2025-05-20 17:43 | PCRCNOTE ---
pt extubated at 17:40 to RA
--- NOTE | 2025-05-20 18:01 | PC.NURSE ---
placed on comfort measures and medications given as ordered. family member remains at the bedside at this time. denies questions at this time. patient appears to be in a comfortable position at this time with no acute distress noted at this time.
[2025-05-20] MEDS: MORPHINE SULFATE (*CRX) 2 MG/ML INJ IV PUSH (20:37)
--- NOTE | 2025-05-20 21:28 | PC.NURSE ---
This patient, Brodie Ochoa, was transferred to [facility] on 05/20/25 at 2115. Personal belongings sent with patient. Report given to NOEMI Vu. Appropriate documentation sent with patient.
[2025-05-21] VITALS (9 sets, daily range): BP systolic 89–103; BP diastolic 56–63; PULSE 71–76; RESP 8–14; TEMP 36.3–37.2; O2SAT 94–99
[2025-05-21] MEDS: MORPHINE SULFATE (*CRX) 2 MG/ML INJ IV PUSH (01:46)
[2025-05-21] MEDS: LORazepam INJ (*CRX) 2 MG/ML VIAL IV PUSH (03:52)
--- NOTE | 2025-05-21 12:23 | P.PNIM_ITS ---
Progress Note: A&P Assessment and Plan (1) Esophageal varices with bleeding: Qualifiers: Esophageal varices type: secondary Qualified Code(s): I85.11 - Secondary esophageal varices with bleeding Code(s): I85.01 - Esophageal varices with bleeding Status: Acute Assessment and Plan: - hx of cirrhosis secondary to ETOH w/esophageal varcies - 2 episodes of bloody emesis on 05/20 [employer], arrived with Hgb of 9.5 -> 6.8, given 2u PRBC -> 7.2 -> 7.1. 3rd unit infusing. - plan for EGD on 05/20 post EGD -> banded 5 varices, one previous that had previously been clipped that was unable to be banded and is currently actively bleeding. patient was then intubated on 05/20 - trend H&H, transfuse if <7 - started on pantoprazole and octreotide, continued - ceftriaxone started on 05/20, continued - GI consulted - awaiting bed at [facility], patient sees [employer] here. cancel transfer, see note below. (2) Cirrhosis, alcoholic: Qualifiers: Ascites presence: with ascites Qualified Code(s): K70.31 - Alcoholic cirrhosis of liver with ascites Code(s): K70.30 - Alcoholic cirrhosis of liver without ascites Status: Acute Assessment and Plan: - total bilirubin 7.0, AST 113, ALT 45, alk-phos 116, lipase 26501 - follows with hepatology at [facility], awaiting transfer - started on ceftriaxone on 05/20, continued - GI consulted - ETOH negative on 05/19 - MELD score: 25, 19 per GI (3) Coagulopathy: Code(s): D68.9 - Coagulation defect, unspecified Status: Acute Assessment and Plan: - PT 26, INR 2.5, PTT 37.3 - secondary to cirrhosis Plan Patient's brother Rafael Ochoa (next of kin) at the bedside. Brother updated on patient's condition and findings during the EGD. He reports the patient elected to be DNR at [facility] during his most recent admission for an upper GI bleed/esophageal varices. He reports during this visit he had varices banded. He would like the patient to be made DNR/DNI and comfort measures. He would like to cancel the transfer to [facility]. He would also like the patient considered for organ donation. rn orthopaedic to contact [facility]. Patient currently has 1u PRBC transfusing, will complete this transfusion and then brother would like no more blood products. [facility] contacted to cancel transfer at 16:50. Site Leader notified of changes. Diet: NPO GI Prophylaxis: PPI gtt DVT Prophylaxis: SCDs IV fluids: 75 mL/hr (octreotide/PPI gtts) Lines/Tubes: peripheral IV Code Status: DNR, Comfort Care Subjective Date/time seen: 05/21/25 12:23 Interval history: 50 y/o M with PMH of alcohol abuse, cirrhosis w/liver failure, and esophageal varices presents here with bloody emesis. The patient presents here from [facility] [place] via EMS for further evaluation of bloody emesis. 05/21/2025 Pt sitting in bed at time of exam. Not in any pain at this time. Comfort orders are in, pt's brother plans to meet with hospice chemical sales representative later today. Will plan on probably discharge tomorrow once hospice has been set up. Review of Systems Review of Systems: All systems reviewed & are unremarkable except as noted in HPI and below ROS unobtainable: Yes unobtainable due to medical condition Exam Const: General: comfortable and no acute distress Other: , male, ill-appearing, intubated HENMT: Face/Nose/Sinus: Normal nares present Mouth: Yes moist mucous membranes Eyes: General: appearance normal, both eyes and all related structures Sclera: sclerae normal Pupils: Equal, round and reactive pupils present (4 mm bilaterally) Resp: Effort & Inspection: normal respiratory effort Other: Diffuse crackles, no wheezing. Intubated and tolerating vent well. Cardio: Rate: regular rate Rhythm: regular rhythm Other: S1-S2 present without murmur, rub, ectopy GI: Other: Abdomen distended, soft. Umbilical hernia noted. Normoactive bowel sounds in all quadrants. + ascites Skin: Other: Slightly jaundiced appearance, small areas of ecchymosis to his extremities in various stages of healing and no particular pattern. Neuro: Cranial nerves: Yes Equal, round and reactive pupils present (4 mm bilaterally) Other: Intubated. PERRLA. Extrem: General: normal to inspection Psych: Other: Unable to assess, intubated Objective Data Vital Signs Vital Signs: Vital Signs - 24 hr 05/20/25 12:30 05/20/25 13:15 05/20/25 14:19 Temperature 97.9 F Pulse Rate 64 64 61 Respiratory Rate 13 14 20 Blood Pressure 92/60 L 95/63 L 89/55 L Pulse Oximetry 99 100 97 Oxygen Delivery Room Air Fraction of Inspired Oxygen 05/20/25 15:53 05/20/25 15:53 05/20/25 16:13 Temperature 98.2 F 97.9 F Pulse Rate 84 84 78 Respiratory Rate 10 L 10 L 14 Blood Pressure 125/76 125/76 111/79 Pulse Oximetry 100 100 98 Oxygen Delivery Fraction of Inspired Oxygen 05/20/25 16:13 05/20/25 16:14 05/20/25 16:14 Temperature Pulse Rate 78 78 84 Respiratory Rate 14 14 Blood Pressure Pulse Oximetry 94 Oxygen Delivery Mechanical Ventilation Fraction of Inspired Oxygen 70 05/20/25 16:24 05/20/25 16:24 05/20/25 16:28 Temperature 97.9 F Pulse Rate 78 78 77 Respiratory Rate 20 20 17 Blood Pressure 108/75 Pulse Oximetry 95 Oxygen Delivery Fraction of Inspired Oxygen 05/20/25 16:32 05/20/25 16:33 05/20/25 16:43 Temperature 97.9 F Pulse Rate 74 74 68 Respiratory Rate 17 17 17 Blood Pressure 93/67 L Pulse Oximetry 100 Oxygen Delivery Fraction of Inspired Oxygen 05/20/25 16:58 05/20/25 17:40 05/20/25 17:40 Temperature 97.8 F Pulse Rate 68 72 69 Respiratory Rate 16 10 L 10 L Blood Pressure 91/64 L Pulse Oximetry 94 Oxygen Delivery Fraction of Inspired Oxygen 05/20/25 18:00 05/20/25 18:00 05/20/25 20:00 Temperature Pulse Rate 74 74 Respiratory Rate 16 Blood Pressure 90/58 L Pulse Oximetry 76 L 90 Oxygen Delivery Room Air Fraction of Inspired Oxygen 05/20/25 20:00 05/20/25 21:20 05/21/25 08:00 Temperature 97.9 F 97.6 F 97.3 F L Pulse Rate 75 73 76 Respiratory Rate 16 17 8 L Blood Pressure 96/62 L 104/63 99/58 L Pulse Oximetry 90 96 97 Oxygen Delivery Fraction of Inspired Oxygen Intake/Output Intake/Output: Intake & Output 05/18/25 05/19/25 05/20/25 05/21/25 23:59 23:59 23:59 23:59 Intake Total 0 3324.9 0 Output Total 600 700 Balance 0 2724.9 -700 Meds/Results Medications: Active Medications Generic Name Dose Route Start Last Admin Trade Name Freq PRN Reason Stop Dose Admin Atropine Sulfate 1 - 2 drop 05/20/25 17:15 Atropine Sulfate 1% Ophth Soln 5 Ml Bottle SUBLINGUAL Q4H PRN Secretions Lorazepam 2 mg 05/20/25 17:15 05/21/25 03:52 Lorazepam Inj (*Crx) 2 Mg/Ml Vial IV PUSH 2 mg Q2H PRN Administration Anxiety/Comfort Morphine Sulfate 2 mg 05/20/25 17:15 05/21/25 01:46 Morphine Sulfate (*Crx) 2 Mg/Ml Inj IV PUSH 2 mg Q30M PRN Administration COMFORT Radiology Results: ITS Impressions Abdomen/Pelvis CT 05/20/25 05:31 Impression: Cirrhotic liver with evidence of portal hypertension including splenomegaly, extensive varices in the right abdomen, and moderate to large amount of abdominopelvic ascites. Small to moderate umbilical hernia containing fat and fluid. 2.1 cm hypodense lesion left hepatic lobe is indeterminate based on this exam. Follow-up MR recommended to further assess. Markedly distended gallbladder with small calcified gallstones and larger amount of more amorphous hyperdense material which could reflect gallbladder sludge versus possibly hemorrhage or soft tissue density. This could also be further assessed at. Postcontrast MR. Small right pleural effusion and minimal left pleural effusion. Chest X-Ray 05/20/25 16:29 IMPRESSION: Endotracheal tube, 4.3 cm above the madisyn. Segmental right upper lung and left medial lower lung atelectasis/consolidation. Labs Labs: Laboratory Results - last 24 hr 05/19/25 05/20/25 21:14 14:24 POC Capillary Glucose 135 H Blood Type B Positive Antibody Screen Negative Crossmatch See Detail Quality VTE Prophylaxis VTE prophylaxis: mechanical ordered
[2025-05-21 16:11] LABS: Immature Granulocyte Percent A 0.7 % (0-0.5); Immature Platelet Fraction Pct 3.4 % (0.9-11.2); Lymphocytes Absolute Auto 0.39 K/mm3 (0.9-3.2); Mean Corpuscular HGB Conc 32.2 g/dl (32-36); Mean Corpuscular Hemoglobin 30.5 pg (26-34); Mean Corpuscular Volume 94.5 fl (80-100); Nucleated Red Blood Cells Absolute Auto 0.000 K/mm3 (0.0-0.012); Nucleated Red Blood Cells Perc 0.0 % (0.0-0.2); Platelet Count Result 57 k/mm3 (150-375); Red Blood Count 2.20 M/mm3 (4.6-6.20); White Blood Count 5.5 K/mm3 (4.5-10.0)
[2025-05-21 16:17] LABS: Hematocrit 20.8 % (42.0-52.0)
[2025-05-21 16:19] LABS: Alanine Aminotransferase 30 U/L (6-50); Albumin Level 2.6 g/dL (3.5-5.1); Alkaline Phosphatase 56 U/L (38-126); Anion Gap 6 mmol/L (4-12); Aspartate Amino Transferase 66 U/L (17-59); Bilirubin,Total 11.6 mg/dL (0.2-1.3); Blood Urea Nitrogen 15 mg/dL (9-20); Calcium 7.9 mg/dL (8.4-10.2); Carbon Dioxide 25 mmol/L (22-30); Chloride 107 mmol/L (98-107); Estimated CRCL calculation 106 ml/min; Estimated Glomerular Filt Rate > 60; Glucose 102 mg/dL (65-110); Potassium 4.1 mmol/L (3.4-5.0); Sodium 138 mmol/L (137-145); Total Protein 6.1 g/dL (6.3-8.2)
[2025-05-21 16:37] LABS: Band Neutrophils Percent 0 % (0-6); Ovalocytes 1+; Target Cells 1+
[2025-05-21 16:38] LABS: Burr Cells 1+; Schistocytes None Seen
[2025-05-21] MEDS: SODIUM CHLORIDE 0.9% IV 250 ML 30 ML IV CONT (17:15)
--- NOTE | 2025-05-21 17:44 | WPDGIPROGNO ---
Progress Note: A&P Assessment and Plan (1) Esophageal varices with bleeding: Qualifiers: Esophageal varices type: secondary Qualified Code(s): I85.11 - Secondary esophageal varices with bleeding Code(s): I85.01 - Esophageal varices with bleeding Status: Acute Assessment and Plan: he already had a clip in one of esophageal varix which was actively bleeding, I placed new bands near the site brother was made aware of critical condition and he already had DNR order and now is comfort care only transfer to [facility] was cancelled (2) Cirrhosis, alcoholic: Qualifiers: Ascites presence: with ascites Qualified Code(s): K70.31 - Alcoholic cirrhosis of liver with ascites Code(s): K70.30 - Alcoholic cirrhosis of liver without ascites Status: Acute (3) Coagulopathy: Code(s): D68.9 - Coagulation defect, unspecified Status: Acute (4) Acute blood loss anemia: Code(s): D62 - Acute posthemorrhagic anemia Status: Acute (5) Ascites: Code(s): R18.8 - Other ascites Status: Acute (6) Encephalopathy: Code(s): G93.40 - Encephalopathy, unspecified Status: Acute Subjective Date/time seen: 05/21/25 17:44 Interval history: he was extubated after brother decided only comfort measures he is obtunded Review of Systems Review of Systems: ROS unobtainable: Yes unobtainable due to mental status Exam Const: Other: obtunded, ill appearing Eyes: Sclera: scleral abnormality (icteric) Neck: Neck: supple Resp: Auscultation: rales Cardio: Rate: regular rate GI: Auscultation: normal bowel sounds Other: + fluid wave, umbilical hernia Skin: Other: icteric, pale Neuro: Other: lethargic Objective Data Vital Signs Vital Signs: Vital Signs - 24 hr 05/20/25 18:00 05/20/25 18:00 05/20/25 20:00 Temperature Pulse Rate 74 74 Respiratory Rate 16 Blood Pressure 90/58 L Pulse Oximetry 76 L 90 Oxygen Delivery Room Air 05/20/25 20:00 05/20/25 21:20 05/21/25 08:00 Temperature 97.9 F 97.6 F 97.3 F L Pulse Rate 75 73 76 Respiratory Rate 16 17 8 L Blood Pressure 96/62 L 104/63 99/58 L Pulse Oximetry 90 96 97 Oxygen Delivery 05/21/25 15:54 05/21/25 17:26 Temperature 98.1 F 98.9 F Pulse Rate 74 73 Respiratory Rate 8 L 12 Blood Pressure 103/60 92/56 L Pulse Oximetry 96 97 Oxygen Delivery Intake/Output Intake/Output: Intake & Output 05/18/25 05/19/25 05/20/25 05/21/25 23:59 23:59 23:59 23:59 Intake Total 0 3324.9 0 Output Total 600 1250 Balance 0 2724.9 -1250 Meds/Results Medications: Active Medications Generic Name Dose Route Start Last Admin Trade Name Freq PRN Reason Stop Dose Admin Atropine Sulfate 1 - 2 drop 05/20/25 17:15 Atropine Sulfate 1% Ophth Soln 5 Ml Bottle SUBLINGUAL Q4H PRN Secretions Sodium Chloride 250 mls @ 30 mls/hr 05/21/25 16:33 Normal Saline Iv IV CONT 05/22/25 00:52 .Q8H20M STA Lorazepam 2 mg 05/20/25 17:15 05/21/25 03:52 Lorazepam Inj (*Crx) 2 Mg/Ml Vial IV PUSH 2 mg Q2H PRN Administration Anxiety/Comfort Morphine Sulfate 2 mg 05/20/25 17:15 05/21/25 01:46 Morphine Sulfate (*Crx) 2 Mg/Ml Inj IV PUSH 2 mg Q30M PRN Administration COMFORT Radiology Results: ITS Impressions Abdomen/Pelvis CT 05/20/25 05:31 Impression: Cirrhotic liver with evidence of portal hypertension including splenomegaly, extensive varices in the right abdomen, and moderate to large amount of abdominopelvic ascites. Small to moderate umbilical hernia containing fat and fluid. 2.1 cm hypodense lesion left hepatic lobe is indeterminate based on this exam. Follow-up MR recommended to further assess. Markedly distended gallbladder with small calcified gallstones and larger amount of more amorphous hyperdense material which could reflect gallbladder sludge versus possibly hemorrhage or soft tissue density. This could also be further assessed at. Postcontrast MR. Small right pleural effusion and minimal left pleural effusion. Chest X-Ray 05/20/25 16:29 IMPRESSION: Endotracheal tube, 4.3 cm above the madisyn. Segmental right upper lung and left medial lower lung atelectasis/consolidation. Labs Labs: Laboratory Results - last 24 hr 05/19/25 05/21/25 21:14 15:59 WBC 5.5 RBC 2.20 L Hgb 6.7 L* Hct 20.8 L* MCV 94.5 MCH 30.5 MCHC 32.2 RDW 19.0 H Plt Count 57 L MPV 9.9 Immature Gran % (Auto) 0.7 H Neut % (Auto) 82.1 H Lymph % (Auto) 7.1 L [place] % (Auto) 9.2 H Eos % (Auto) 0.5 Baso % (Auto) 0.4 Lymph # (Auto) 0.39 L [place] # (Auto) 0.5 Eos # (Auto) 0.0 Baso # (Auto) 0.0 Abs Immat Gran (auto) 0.04 H Absolute Neuts (auto) 4.5 Absolute Nucleated RBC 0.000 Band Neutrophils % 0 Nucleated RBC % 0.0 Platelet Estimate Decreased % Immature Plt Fraction 3.4 Target Cells 1+ Ovalocytes 1+ [place] Cells 1+ Schistocytes None seen Sodium 138 Potassium 4.1 Chloride 107 Carbon Dioxide 25 Anion Gap 6 BUN 15 D Creatinine 0.71 Estim Creat Clear Calc 106 Estimated GFR > 60 Glucose 102 Calcium 7.9 L Total Bilirubin 11.6 H AST 66 H ALT 30 Alkaline Phosphatase 56 Total Protein 6.1 L Albumin 2.6 L Blood Type B Positive Antibody Screen Negative Crossmatch See Detail
--- NOTE | 2025-05-21 18:41 | PC.NURSE ---
This pt and his brother had a VITAS meeting approx 1500, and the pt woke up and was A/Ox4. Pt stated he did not want hospice, that he wanted to keep fighting. Brother wanted pt hospice, but agreeable to pt request for full treatment. THis RN bedside to clarify code status. Pt does not want CPR; brother supports this choice. Hospitalist notified and labs started. Critical obtained on H/H. Pt would like a unit of blood. Brother aware. Tele placed. GI reconsulted and hospitalist will initiate [facility] xfer tomorrow AM.
[2025-05-21 22:41] LABS: Hematocrit 21.6 % (42.0-52.0); Hemoglobin 7.1 g/dL (14.0-18.0); Immature Platelet Fraction Pct 3.3 % (0.9-11.2); Mean Corpuscular HGB Conc 32.9 g/dl (32-36); Mean Corpuscular Hemoglobin 30.5 pg (26-34); Mean Corpuscular Volume 92.7 fl (80-100); Platelet Count Result 53 k/mm3 (150-375); Red Blood Count 2.33 M/mm3 (4.6-6.20); White Blood Count 4.6 K/mm3 (4.5-10.0)
[2025-05-22] VITALS (11 sets, daily range): BP systolic 87–109; BP diastolic 55–63; PULSE 58–71; RESP 14–20; TEMP 36.3–37.1; O2SAT 98–100
[2025-05-22 06:03] LABS: Hematocrit 21.7 % (42.0-52.0); Hemoglobin 7.1 g/dL (14.0-18.0); Immature Platelet Fraction Pct 3.6 % (0.9-11.2); Mean Corpuscular HGB Conc 32.7 g/dl (32-36); Mean Corpuscular Hemoglobin 30.3 pg (26-34); Mean Corpuscular Volume 92.7 fl (80-100); Platelet Count Result 55 k/mm3 (150-375); Red Blood Count 2.34 M/mm3 (4.6-6.20); White Blood Count 4.9 K/mm3 (4.5-10.0)
[2025-05-22 06:29] LABS: Alanine Aminotransferase 27 U/L (6-50); Albumin Level 2.4 g/dL (3.5-5.1); Alkaline Phosphatase 54 U/L (38-126); Anion Gap 3 mmol/L (4-12); Aspartate Amino Transferase 63 U/L (17-59); Bilirubin,Total 10.9 mg/dL (0.2-1.3); Blood Urea Nitrogen 13 mg/dL (9-20); Calcium 7.6 mg/dL (8.4-10.2); Carbon Dioxide 25 mmol/L (22-30); Chloride 107 mmol/L (98-107); Estimated CRCL calculation 117 ml/min; Estimated Glomerular Filt Rate > 60; Glucose 115 mg/dL (65-110); Potassium 3.7 mmol/L (3.4-5.0); Sodium 135 mmol/L (137-145); Total Protein 5.8 g/dL (6.3-8.2)
[2025-05-22 12:00] LABS: Hematocrit 22.1 % (42.0-52.0); Hemoglobin 7.3 g/dL (14.0-18.0)
--- NOTE | 2025-05-22 14:14 | PM.IMPN ---
Progress Note: A&P Assessment and Plan (1) Esophageal varices with bleeding: Qualifiers: Esophageal varices type: secondary Qualified Code(s): I85.11 - Secondary esophageal varices with bleeding Code(s): I85.01 - Esophageal varices with bleeding Status: Acute Assessment and Plan: - hx of cirrhosis secondary to ETOH w/esophageal varcies - 2 episodes of bloody emesis on 05/20 [facility], arrived with Hgb of 9.5 -> 6.8, given 2u PRBC -> 7.2 -> 7.1. 3rd unit infusing. - plan for EGD on 05/20 post EGD -> banded 5 varices, one previous that had previously been clipped that was unable to be banded and is currently actively bleeding. patient was then intubated on 05/20 - trend H&H, transfuse if <7 - started on pantoprazole and octreotide, continued - ceftriaxone started on 05/20, continued - GI consulted - awaiting bed [facility], patient sees [facility] - IV octreotide (2) Cirrhosis, alcoholic: Qualifiers: Ascites presence: with ascites Qualified Code(s): K70.31 - Alcoholic cirrhosis of liver with ascites Code(s): K70.30 - Alcoholic cirrhosis of liver without ascites Status: Acute Assessment and Plan: - total bilirubin 7.0, AST 113, ALT 45, alk-phos 116, lipase 31570 - follows with hepatology at [facility], awaiting transfer - started on ceftriaxone on 05/20, continued - GI consulted - ETOH negative on 05/19 - MELD score: 25, 19 per GI (3) Coagulopathy: Code(s): D68.9 - Coagulation defect, unspecified Status: Acute Assessment and Plan: - PT 26, INR 2.5, PTT 37.3 - secondary to cirrhosis Plan Hospice was consulted and came to see the patient on 05/21. Patient is A&O x4 at the time and states that he was not ready for hospice/comfort cares at this time. Will re-initiate transfer process with [facility]. Patient has been accepted and we are pending a bed at this time. Will reinstate IV octreotide and continue to monitor H&H. Diet: NPO GI Prophylaxis: PPI gtt DVT Prophylaxis: SCDs IV fluids: 75 mL/hr (octreotide/PPI gtts) Lines/Tubes: peripheral IV Code Status: DNR, Comfort Care Subjective Date/time seen: 05/22/25 14:14 Interval history: 50 y/o M with PMH of alcohol abuse, cirrhosis w/liver failure, and esophageal varices presents here with bloody emesis. The patient presents here from [facility] via EMS for further evaluation of bloody emesis. 05/22/2025 Patient sitting in bed at time of examination. Hospice was consulted and chemo to see the patient yesterday on 05/21. At the time patient was A&O x4 and did not want to be on comfort care or hospice. He he still wanted to be a DNR/DNI but would like to continue with the transfer process to [facility] for his underlying issue of esophageal varices/hematemesis. This was discussed with the brother who agreed with the patient's wishes. Transfer process was initiated and [facility] was called and patient was accepted. Pending transfer at this time, patient is otherwise stable. He did require 1 unit PRBC on 05/21 for hemoglobin of 6.7. IV octreotide reinstated and GI to continue seen patient while admitted. Continue H&H rechecks. Review of Systems Review of Systems: All systems reviewed & are unremarkable except as noted in HPI and below ROS unobtainable: Yes unobtainable due to medical condition Exam Const: General: comfortable and no acute distress Other: , male, ill-appearing, intubated HENMT: Face/Nose/Sinus: Normal nares present Mouth: Yes moist mucous membranes Eyes: General: appearance normal, both eyes and all related structures Sclera: sclerae normal Pupils: Equal, round and reactive pupils present (4 mm bilaterally) Resp: Effort & Inspection: normal respiratory effort Other: Diffuse crackles, no wheezing. Intubated and tolerating vent well. Cardio: Rate: regular rate Rhythm: regular rhythm Other: S1-S2 present without murmur, rub, ectopy GI: Other: Abdomen distended, soft. Umbilical hernia noted. Normoactive bowel sounds in all quadrants. + ascites Skin: Other: Slightly jaundiced appearance, small areas of ecchymosis to his extremities in various stages of healing and no particular pattern. Neuro: Cranial nerves: Yes Equal, round and reactive pupils present (4 mm bilaterally) Other: Intubated. PERRLA. Extrem: General: normal to inspection Psych: Other: Unable to assess, intubated Objective Data Vital Signs Vital Signs: Vital Signs - 24 hr 05/21/25 15:54 05/21/25 17:26 05/21/25 17:42 Temperature 98.1 F 98.9 F 98.2 F Pulse Rate 74 73 71 Respiratory Rate 8 L 12 12 Blood Pressure 103/60 92/56 L 93/63 L Pulse Oximetry 96 97 99 Oxygen Delivery Fraction of Inspired Oxygen 05/21/25 18:42 05/21/25 19:42 05/21/25 19:58 Temperature 97.3 F L 98.3 F 98.3 F Pulse Rate 74 71 71 Respiratory Rate 10 L 14 14 Blood Pressure 93/58 L 89/61 L 89/61 L Pulse Oximetry 98 97 97 Oxygen Delivery Fraction of Inspired Oxygen 05/21/25 20:00 05/21/25 20:00 05/21/25 21:27 Temperature 99.0 F Pulse Rate 74 72 74 Respiratory Rate 14 14 Blood Pressure 96/56 L Pulse Oximetry 94 94 Oxygen Delivery Room Air Fraction of Inspired Oxygen 70 05/22/25 00:00 05/22/25 00:24 05/22/25 04:00 Temperature Pulse Rate 71 68 Respiratory Rate Blood Pressure 102/57 L Pulse Oximetry Oxygen Delivery Fraction of Inspired Oxygen 05/22/25 05:22 Temperature 98.7 F Pulse Rate 66 Respiratory Rate 14 Blood Pressure 99/61 L Pulse Oximetry 99 Oxygen Delivery Fraction of Inspired Oxygen Intake/Output Intake/Output: Intake & Output 05/19/25 05/20/25 05/21/25 05/22/25 23:59 23:59 23:59 23:59 Intake Total 0 3324.9 590 820 Output Total 600 1250 2100 Balance 0 7264.9 -333 -1280 Meds/Results Medications: Active Medications Generic Name Dose Route Start Last Admin Trade Name Freq PRN Reason Stop Dose Admin Atropine Sulfate 1 - 2 drop 05/20/25 17:15 Atropine Sulfate 1% Ophth Soln 5 Ml Bottle SUBLINGUAL Q4H PRN Secretions Octreotide Acetate 500 mcg/ 100 mls @ 10 mls/hr 05/22/25 13:20 Sodium Chloride IV CONT .Q10H [place] 50 MCG/HR Lorazepam 2 mg 05/20/25 17:15 05/21/25 03:52 Lorazepam Inj (*Crx) 2 Mg/Ml Vial IV PUSH 2 mg Q2H PRN Administration Anxiety/Comfort Morphine Sulfate 2 mg 05/20/25 17:15 05/21/25 01:46 Morphine Sulfate (*Crx) 2 Mg/Ml Inj IV PUSH 2 mg Q30M PRN Administration COMFORT Radiology Results: ITS Impressions Abdomen/Pelvis CT 05/20/25 05:31 Impression: Cirrhotic liver with evidence of portal hypertension including splenomegaly, extensive varices in the right abdomen, and moderate to large amount of abdominopelvic ascites. Small to moderate umbilical hernia containing fat and fluid. 2.1 cm hypodense lesion left hepatic lobe is indeterminate based on this exam. Follow-up MR recommended to further assess. Markedly distended gallbladder with small calcified gallstones and larger amount of more amorphous hyperdense material which could reflect gallbladder sludge versus possibly hemorrhage or soft tissue density. This could also be further assessed at. Postcontrast MR. Small right pleural effusion and minimal left pleural effusion. Chest X-Ray 05/20/25 16:29 IMPRESSION: Endotracheal tube, 4.3 cm above the madisyn. Segmental right upper lung and left medial lower lung atelectasis/consolidation. Labs Labs: Laboratory Results - last 24 hr 05/19/25 05/21/25 05/21/25 21:14 15:59 22:35 WBC 5.5 4.6 RBC 2.20 L 2.33 L Hgb 6.7 L* 7.1 L Hct 20.8 L* 21.6 L MCV 94.5 92.7 MCH 30.5 30.5 MCHC 32.2 32.9 RDW 19.0 H 18.3 H Plt Count 57 L 53 L MPV 9.9 10.4 Immature Gran % (Auto) 0.7 H Neut % (Auto) 82.1 H Lymph % (Auto) 7.1 L [place] % (Auto) 9.2 H Eos % (Auto) 0.5 Baso % (Auto) 0.4 Lymph # (Auto) 0.39 L [place] # (Auto) 0.5 Eos # (Auto) 0.0 Baso # (Auto) 0.0 Abs Immat Gran (auto) 0.04 H Absolute Neuts (auto) 4.5 Absolute Nucleated RBC 0.000 Band Neutrophils % 0 Nucleated RBC % 0.0 Platelet Estimate Decreased % Immature Plt Fraction 3.4 3.3 Target Cells 1+ Ovalocytes 1+ [place] Cells 1+ Schistocytes None seen Sodium 138 Potassium 4.1 Chloride 107 Carbon Dioxide 25 Anion Gap 6 BUN 15 D Creatinine 0.71 Estim Creat Clear Calc 106 Estimated GFR > 60 Glucose 102 Calcium 7.9 L Total Bilirubin 11.6 H AST 66 H ALT 30 Alkaline Phosphatase 56 Total Protein 6.1 L Albumin 2.6 L Blood Type B Positive Antibody Screen Negative Crossmatch See Detail 05/22/25 05/22/25 04:46 11:48 WBC 4.9 RBC 2.34 L Hgb 7.1 L 7.3 L Hct 21.7 L 22.1 L MCV 92.7 MCH 30.3 MCHC 32.7 RDW 18.1 H Plt Count 55 L MPV 10.6 H Immature Gran % (Auto) Neut % (Auto) Lymph % (Auto) [place] % (Auto) Eos % (Auto) Baso % (Auto) Lymph # (Auto) [place] # (Auto) Eos # (Auto) Baso # (Auto) Abs Immat Gran (auto) Absolute Neuts (auto) Absolute Nucleated RBC Band Neutrophils % Nucleated RBC % Platelet Estimate % Immature Plt Fraction 3.6 Target Cells Ovalocytes Anitha Cells Schistocytes Sodium 135 L Potassium 3.7 Chloride 107 Carbon Dioxide 25 Anion Gap 3 L BUN 13 Creatinine 0.64 L Estim Creat Clear Calc 117 Estimated GFR > 60 Glucose 115 H Calcium 7.6 L Total Bilirubin 10.9 H AST 63 H ALT 27 Alkaline Phosphatase 54 Total Protein 5.8 L Albumin 2.4 L Blood Type Antibody Screen Crossmatch Quality VTE Prophylaxis VTE prophylaxis: mechanical ordered
[2025-05-22] MEDS: OCTREOTIDE ACETATE 500 MCG in SODIUM CHLORIDE 0.9% IV 99 ML 10 MCG IV CONT (15:56)
--- NOTE | 2025-05-22 17:20 | P.PNGI_ITS ---
Progress Note: A&P Assessment and Plan (1) GIB (gastrointestinal bleeding): Code(s): K92.2 - Gastrointestinal hemorrhage, unspecified Status: Acute Assessment and Plan: noted bleeding from site of clip at varix (this has placed at another institution), I placed more rubber band continue iv octreotide hgb near 7, he received one more unit prbc (2) Cirrhosis, alcoholic: Qualifiers: Ascites presence: with ascites Qualified Code(s): K70.31 - Alcoholic cirrhosis of liver with ascites Code(s): K70.30 - Alcoholic cirrhosis of liver without ascites Status: Acute Assessment and Plan: decompensated cirrhosis here with active bleeding which is stable now meld elevated on admission (will repeat inr) he wants medical treatment and pending [facility] transfer (3) Esophageal varices with bleeding: Qualifiers: Esophageal varices type: secondary Qualified Code(s): I85.11 - Secondary esophageal varices with bleeding Code(s): I85.01 - Esophageal varices with bleeding Status: Acute (4) Ascites: Code(s): R18.8 - Other ascites Status: Acute Assessment and Plan: covered with antibiotic (5) Coagulopathy: Code(s): D68.9 - Coagulation defect, unspecified Status: Acute Assessment and Plan: will give vit K x1 (6) Acute blood loss anemia: Code(s): D62 - Acute posthemorrhagic anemia Status: Acute Subjective Date/time seen: 05/22/25 17:20 Interval history: patient yesterday was more lucid and oriented after brief episode of being lethargic, he wanted to keep receiving medical treatment noted dark stool today, no hematemesis and he is comfortable now Review of Systems Review of Systems: All systems reviewed & are unremarkable except as noted in HPI and below Exam Const: General: comfortable and no acute distress Other: , male, ill-appearing HENMT: Face/Nose/Sinus: Normal nares present Mouth: Yes moist mucous membranes Eyes: General: appearance normal, both eyes and all related structures Pupils: Equal, round and reactive pupils present (4 mm bilaterally) Other: icteric sclerae Neck: Neck: supple Resp: Effort & Inspection: normal respiratory effort Auscultation: no wheezes Other: Cardio: Rate: regular rate Rhythm: regular rhythm GI: GI Palp: Yes Soft to palpation Other: Abdomen distended, soft. Umbilical hernia noted. Normoactive bowel sounds in all quadrants. + ascites Skin: Other: Slightly jaundiced appearance, spider angioma chest Neuro: Speech: normal speech Extrem: General: normal to inspection Psych: Attitude: not belligerent Objective Data Vital Signs Vital Signs: Vital Signs - 24 hr 05/21/25 17:26 05/21/25 17:42 05/21/25 18:42 Temperature 98.9 F 98.2 F 97.3 F L Pulse Rate 73 71 74 Respiratory Rate 12 12 10 L Blood Pressure 92/56 L 93/63 L 93/58 L Pulse Oximetry 97 99 98 Oxygen Delivery Fraction of Inspired Oxygen 05/21/25 19:42 05/21/25 19:58 05/21/25 20:00 Temperature 98.3 F 98.3 F Pulse Rate 71 71 74 Respiratory Rate 14 14 14 Blood Pressure 89/61 L 89/61 L Pulse Oximetry 97 97 94 Oxygen Delivery Room Air Fraction of Inspired Oxygen 70 05/21/25 20:00 05/21/25 21:27 05/22/25 00:00 Temperature 99.0 F Pulse Rate 72 74 71 Respiratory Rate 14 Blood Pressure 96/56 L Pulse Oximetry 94 Oxygen Delivery Fraction of Inspired Oxygen 05/22/25 00:24 05/22/25 04:00 05/22/25 05:22 Temperature 98.7 F Pulse Rate 68 66 Respiratory Rate 14 Blood Pressure 102/57 L 99/61 L Pulse Oximetry 99 Oxygen Delivery Fraction of Inspired Oxygen 05/22/25 14:41 Temperature 97.4 F L Pulse Rate 66 Respiratory Rate 18 Blood Pressure 109/59 L Pulse Oximetry 99 Oxygen Delivery Fraction of Inspired Oxygen Intake/Output Intake/Output: Intake & Output 05/19/25 05/20/25 05/21/25 05/22/25 23:59 23:59 23:59 23:59 Intake Total 0 3324.9 590 820 Output Total 600 1250 2800 Balance 0 2724.9 -660 -1980 Meds/Results Medications: Active Medications Generic Name Dose Route Start Last Admin Trade Name Freq PRN Reason Stop Dose Admin Atropine Sulfate 1 - 2 drop 05/20/25 17:15 Atropine Sulfate 1% Ophth Soln 5 Ml Bottle SUBLINGUAL Q4H PRN Secretions Octreotide Acetate 500 mcg/ 100 mls @ 10 mls/hr 05/22/25 13:20 05/22/25 15:56 Sodium Chloride IV CONT 50 mcg/hr .Q10H [place] 10 mls/hr Administration 50 MCG/HR Lorazepam 2 mg 05/20/25 17:15 05/21/25 03:52 Lorazepam Inj (*Crx) 2 Mg/Ml Vial IV PUSH 2 mg Q2H PRN Administration Anxiety/Comfort Morphine Sulfate 2 mg 05/20/25 17:15 05/21/25 01:46 Morphine Sulfate (*Crx) 2 Mg/Ml Inj IV PUSH 2 mg Q30M PRN Administration COMFORT Phytonadione 10 mg 05/22/25 17:19 Phytonadione 5 Mg Tablet PO 05/22/25 17:20 ONCE ONE Thiamine HCl 100 mg 05/23/25 09:00 Thiamine Hcl 100 Mg Tablet PO QAM [facility] Radiology Results: ITS Impressions Abdomen/Pelvis CT 05/20/25 05:31 Impression: Cirrhotic liver with evidence of portal hypertension including splenomegaly, extensive varices in the right abdomen, and moderate to large amount of abdominopelvic ascites. Small to moderate umbilical hernia containing fat and fluid. 2.1 cm hypodense lesion left hepatic lobe is indeterminate based on this exam. Follow-up MR recommended to further assess. Markedly distended gallbladder with small calcified gallstones and larger amount of more amorphous hyperdense material which could reflect gallbladder sludge versus possibly hemorrhage or soft tissue density. This could also be further assessed at. Postcontrast MR. Small right pleural effusion and minimal left pleural effusion. Chest X-Ray 05/20/25 16:29 IMPRESSION: Endotracheal tube, 4.3 cm above the madisyn. Segmental right upper lung and left medial lower lung atelectasis/consolidation. Labs Labs: Laboratory Results - last 24 hr 05/19/25 05/21/25 05/22/25 21:14 22:35 04:46 WBC 4.6 4.9 RBC 2.33 L 2.34 L Hgb 7.1 L 7.1 L Hct 21.6 L 21.7 L MCV 92.7 92.7 MCH 30.5 30.3 MCHC 32.9 32.7 RDW 18.3 H 18.1 H Plt Count 53 L 55 L MPV 10.4 10.6 H % Immature Plt Fraction 3.3 3.6 Sodium 135 L Potassium 3.7 Chloride 107 Carbon Dioxide 25 Anion Gap 3 L BUN 13 Creatinine 0.64 L Estim Creat Clear Calc 117 Estimated GFR > 60 Glucose 115 H Calcium 7.6 L Total Bilirubin 10.9 H AST 63 H ALT 27 Alkaline Phosphatase 54 Total Protein 5.8 L Albumin 2.4 L Blood Type B Positive Antibody Screen Negative Crossmatch See Detail 05/22/25 11:48 WBC RBC Hgb 7.3 L Hct 22.1 L MCV MCH MCHC RDW Plt Count MPV % Immature Plt Fraction Sodium Potassium Chloride Carbon Dioxide Anion Gap BUN Creatinine Estim Creat Clear Calc Estimated GFR Glucose Calcium Total Bilirubin AST ALT Alkaline Phosphatase Total Protein Albumin Blood Type Antibody Screen Crossmatch
[2025-05-22] MEDS: cefTRIAXone 1 GM in SODIUM CHLORIDE 0.9% IV 50 ML 100 ML IVPB (18:09)
[2025-05-22] MEDS: PHYTONADIONE 5 MG TABLET 10 MG PO (18:12)
[2025-05-22 20:28] LABS: Hematocrit 23.2 % (42.0-52.0); Hemoglobin 7.7 g/dL (14.0-18.0)
[2025-05-23] VITALS: PULSE 60
[2025-05-23] MEDS: OCTREOTIDE ACETATE 500 MCG in SODIUM CHLORIDE 0.9% IV 99 ML 10 MCG IV CONT ×2 (01:25→11:25)
[2025-05-23 04:00] VITALS: BP 99/65; PULSE 57; PULSE 63; RESP 16; TEMP 36.8; O2SAT 98
[2025-05-23 06:08] LABS: Hematocrit 23.4 % (42.0-52.0); Hemoglobin 7.5 g/dL (14.0-18.0); Immature Granulocyte Percent A 0.8 % (0-0.5); Immature Platelet Fraction Pct 3.8 % (0.9-11.2); Lymphocytes Absolute Auto 0.39 K/mm3 (0.9-3.2); Mean Corpuscular HGB Conc 32.1 g/dl (32-36); Mean Corpuscular Hemoglobin 30.5 pg (26-34); Mean Corpuscular Volume 95.1 fl (80-100); Nucleated Red Blood Cells Absolute Auto 0.000 K/mm3 (0.0-0.012); Nucleated Red Blood Cells Perc 0.0 % (0.0-0.2); Platelet Count Result 62 k/mm3 (150-375); Red Blood Count 2.46 M/mm3 (4.6-6.20); White Blood Count 3.8 K/mm3 (4.5-10.0)
[2025-05-23 06:17] LABS: INR 2.5; Prothrombin Time 26.3 Seconds (11.1-14.7)
[2025-05-23 06:32] LABS: Alanine Aminotransferase 29 U/L (6-50); Albumin Level 2.4 g/dL (3.5-5.1); Alkaline Phosphatase 57 U/L (38-126); Anion Gap 7 mmol/L (4-12); Aspartate Amino Transferase 68 U/L (17-59); Bilirubin,Total 11.9 mg/dL (0.2-1.3); Blood Urea Nitrogen 9 mg/dL (9-20); Calcium 7.9 mg/dL (8.4-10.2); Carbon Dioxide 22 mmol/L (22-30); Chloride 109 mmol/L (98-107); Estimated CRCL calculation 112 ml/min; Estimated Glomerular Filt Rate > 60; Glucose 135 mg/dL (65-110); Potassium 3.9 mmol/L (3.4-5.0); Sodium 138 mmol/L (137-145); Total Protein 6.1 g/dL (6.3-8.2)
--- NOTE | 2025-05-23 07:46 | PM.IMPN ---
Progress Note: A&P Assessment and Plan (1) Esophageal varices with bleeding: Qualifiers: Esophageal varices type: secondary Qualified Code(s): I85.11 - Secondary esophageal varices with bleeding Code(s): I85.01 - Esophageal varices with bleeding Status: Acute Assessment and Plan: - hx of cirrhosis secondary to ETOH w/esophageal varcies - 2 episodes of bloody emesis on 05/20 [employer], arrived with Hgb of 9.5 -> 6.8, given 2u PRBC -> 7.2 -> 7.1. 3rd unit infusing. - plan for EGD on 05/20 post EGD -> banded 5 varices, one previous that had previously been clipped that was unable to be banded and is currently actively bleeding. patient was then intubated on 05/20 - trend H&H, transfuse if <7 - started on pantoprazole and octreotide, continued - ceftriaxone started on 05/20, continued - GI consulted - awaiting bed at [facility], patient sees [facility] - IV octreotide - pending transfer to [facility] (2) Cirrhosis, alcoholic: Qualifiers: Ascites presence: with ascites Qualified Code(s): K70.31 - Alcoholic cirrhosis of liver with ascites Code(s): K70.30 - Alcoholic cirrhosis of liver without ascites Status: Acute Assessment and Plan: - total bilirubin 7.0, AST 113, ALT 45, alk-phos 116, lipase 43527 - follows with hepatology at [facility], awaiting transfer - started on ceftriaxone on 05/20, continued - GI consulted - ETOH negative on 05/19 - MELD score: 25, 19 per GI (3) Coagulopathy: Code(s): D68.9 - Coagulation defect, unspecified Status: Acute Assessment and Plan: - PT 26, INR 2.5, PTT 37.3 - secondary to cirrhosis Plan Hospice was consulted and came to see the patient on 05/21. Patient is A&O x4 at the time and states that he was not ready for hospice/comfort cares at this time. Will re-initiate transfer process with [facility]. Patient has been accepted and we are pending a bed at this time. Will reinstate IV octreotide and continue to monitor H&H. Diet: NPO GI Prophylaxis: PPI gtt DVT Prophylaxis: SCDs IV fluids: 75 mL/hr (octreotide/PPI gtts) Lines/Tubes: peripheral IV Code Status: DNR Subjective Date/time seen: 05/23/25 07:46 Interval history: 50 y/o M with PMH of alcohol abuse, cirrhosis w/liver failure, and esophageal varices presents here with bloody emesis. The patient presents here from [facility] via EMS for further evaluation of bloody emesis. 05/23/2025 Resting comfortably in bed at time of examination. Denies any pain or concerns at this time. Pending transfer to [facility]. Review of Systems Review of Systems: All systems reviewed & are unremarkable except as noted in HPI and below ROS unobtainable: Yes unobtainable due to medical condition Exam Const: General: comfortable and no acute distress Other: , male, ill-appearing, intubated HENMT: Face/Nose/Sinus: Normal nares present Mouth: Yes moist mucous membranes Eyes: General: appearance normal, both eyes and all related structures Sclera: sclerae normal Pupils: Equal, round and reactive pupils present (4 mm bilaterally) Resp: Effort & Inspection: normal respiratory effort Other: Diffuse crackles, no wheezing. Intubated and tolerating vent well. Cardio: Rate: regular rate Rhythm: regular rhythm Other: S1-S2 present without murmur, rub, ectopy GI: Other: Abdomen distended, soft. Umbilical hernia noted. Normoactive bowel sounds in all quadrants. + ascites Skin: Other: Slightly jaundiced appearance, small areas of ecchymosis to his extremities in various stages of healing and no particular pattern. Neuro: Cranial nerves: Yes Equal, round and reactive pupils present (4 mm bilaterally) Other: Intubated. PERRLA. Extrem: General: normal to inspection Psych: Other: Unable to assess, intubated Objective Data Vital Signs Vital Signs: Vital Signs - 24 hr 05/22/25 08:00 05/22/25 12:00 05/22/25 14:41 Temperature 97.4 F L Pulse Rate 64 58 L 66 Respiratory Rate 18 Blood Pressure 109/59 L Pulse Oximetry 99 Oxygen Delivery 05/22/25 16:00 05/22/25 20:00 05/22/25 20:00 Temperature 98.2 F Pulse Rate 68 58 L Respiratory Rate 14 Blood Pressure 87/55 L Pulse Oximetry 98 Oxygen Delivery Room Air 05/22/25 20:00 05/22/25 20:52 05/22/25 23:54 Temperature 98.0 F Pulse Rate 59 L 66 Respiratory Rate 20 Blood Pressure 105/63 Pulse Oximetry 98 100 Oxygen Delivery Room Air 05/23/25 00:00 05/23/25 04:00 05/23/25 04:00 Temperature 98.2 F Pulse Rate 60 57 L 63 Respiratory Rate 16 Blood Pressure 99/65 L Pulse Oximetry 98 Oxygen Delivery Intake/Output Intake/Output: Intake & Output 05/20/25 05/21/25 05/22/25 05/23/25 23:59 23:59 23:59 23:59 Intake Total 3324.9 590 820 214.8 Output Total 600 1250 3300 1200 Balance 2724.9 -660 -2480 -985.2 Meds/Results Medications: Active Medications Generic Name Dose Route Start Last Admin Trade Name Freq PRN Reason Stop Dose Admin Atropine Sulfate 1 - 2 drop 05/20/25 17:15 Atropine Sulfate 1% Ophth Soln 5 Ml Bottle SUBLINGUAL Q4H PRN Secretions Octreotide Acetate 500 mcg/ 100 mls @ 10 mls/hr 05/22/25 13:20 05/23/25 01:25 Sodium Chloride IV CONT 50 mcg/hr .Q10H [place] 10 mls/hr Administration 50 MCG/HR Ceftriaxone Sodium 1 gm/ 50 mls @ 100 mls/hr 05/22/25 18:00 05/22/25 18:09 Sodium Chloride IVPB 100 mls/hr Q24H [place] Administration Lorazepam 2 mg 05/20/25 17:15 05/21/25 03:52 Lorazepam Inj (*Crx) 2 Mg/Ml Vial IV PUSH 2 mg Q2H PRN Administration Anxiety/Comfort Morphine Sulfate 2 mg 05/20/25 17:15 05/21/25 01:46 Morphine Sulfate (*Crx) 2 Mg/Ml Inj IV PUSH 2 mg Q30M PRN Administration COMFORT Thiamine HCl 100 mg 05/23/25 09:00 Thiamine Hcl 100 Mg Tablet PO QAM [facility] Radiology Results: ITS Impressions Abdomen/Pelvis CT 05/20/25 05:31 Impression: Cirrhotic liver with evidence of portal hypertension including splenomegaly, extensive varices in the right abdomen, and moderate to large amount of abdominopelvic ascites. Small to moderate umbilical hernia containing fat and fluid. 2.1 cm hypodense lesion left hepatic lobe is indeterminate based on this exam. Follow-up MR recommended to further assess. Markedly distended gallbladder with small calcified gallstones and larger amount of more amorphous hyperdense material which could reflect gallbladder sludge versus possibly hemorrhage or soft tissue density. This could also be further assessed at. Postcontrast MR. Small right pleural effusion and minimal left pleural effusion. Chest X-Ray 05/20/25 16:29 IMPRESSION: Endotracheal tube, 4.3 cm above the madisyn. Segmental right upper lung and left medial lower lung atelectasis/consolidation. Labs Labs: Laboratory Results - last 24 hr 05/19/25 05/22/25 05/22/25 21:14 11:48 20:21 WBC RBC Hgb 7.3 L 7.7 L Hct 22.1 L 23.2 L MCV MCH MCHC RDW Plt Count MPV Immature Gran % (Auto) Neut % (Auto) Lymph % (Auto) [place] % (Auto) Eos % (Auto) Baso % (Auto) Lymph # (Auto) [place] # (Auto) Eos # (Auto) Baso # (Auto) Abs Immat Gran (auto) Absolute Neuts (auto) Absolute Nucleated RBC Nucleated RBC % % Immature Plt Fraction PT INR Sodium Potassium Chloride Carbon Dioxide Anion Gap BUN Creatinine Estim Creat Clear Calc Estimated GFR Glucose Calcium Total Bilirubin AST ALT Alkaline Phosphatase Total Protein Albumin Crossmatch See Detail 05/23/25 05:30 WBC 3.8 L RBC 2.46 L Hgb 7.5 L Hct 23.4 L MCV 95.1 MCH 30.5 MCHC 32.1 RDW 17.9 H Plt Count 62 L MPV 10.6 H Immature Gran % (Auto) 0.8 H Neut % (Auto) 75.9 H Lymph % (Auto) 10.3 L [place] % (Auto) 11.1 H Eos % (Auto) 1.1 Baso % (Auto) 0.8 Lymph # (Auto) 0.39 L [place] # (Auto) 0.4 Eos # (Auto) 0.0 Baso # (Auto) 0.0 Abs Immat Gran (auto) 0.03 Absolute Neuts (auto) 2.9 Absolute Nucleated RBC 0.000 Nucleated RBC % 0.0 % Immature Plt Fraction 3.8 PT 26.3 H INR 2.5 Sodium 138 Potassium 3.9 Chloride 109 H Carbon Dioxide 22 Anion Gap 7 BUN 9 Creatinine 0.67 L Estim Creat Clear Calc 112 Estimated GFR > 60 Glucose 135 H Calcium 7.9 L Total Bilirubin 11.9 H AST 68 H ALT 29 Alkaline Phosphatase 57 Total Protein 6.1 L Albumin 2.4 L Crossmatch Quality VTE Prophylaxis VTE prophylaxis: mechanical ordered
[2025-05-23 08:00] VITALS: BP 107/55; PULSE 60; PULSE 63; RESP 16; TEMP 37.2; O2SAT 97
[2025-05-23] MEDS: THIAMINE HCL 100 MG TABLET PO (09:52)
[2025-05-23 12:00] VITALS: BP 105/64; PULSE 62; PULSE 64; RESP 16; TEMP 37.7; O2SAT 96
--- NOTE | 2025-05-23 13:52 | P.TS_ITS ---
Transfer Discharge Sum: Prov Provider Date of admission: 05/20/25 11:12 Primary care physician: PHYSICIAN NOT ON STAFF Admitting clinician: Betsy Thompson MD Consults: 05/20/25 11:12 Consult to Physician Routine Comment: Consulting Provider: Miguel Garcia Reason for consultation: UGIB Has provider been notified: Yes 05/21/25 Care Coordination Consult Routine Reason for Consult:: Hospice Referral Consult to Physician Routine Comment: Dr Colt perez pt 05-21-25[facility] Consulting Provider: Miguel Garcia Reason for consultation: reconsult GI-esoph varicies Has provider been notified: Yes 05/22/25 Consult to Physician Routine Comment: Spoke to @[id number] 05/22 [facility] [place] Provider: Miguel Garcia Reason for consultation: bright red/ dark red bowel movement Has provider been notified: Yes DS: Admitting Diagnosis Discharge Date 05/23/2025 Admitting Diagnosis Bleeding esophageal varices DS: Discharge Diagnosis Discharge Diagnosis (1) Esophageal varices with bleeding: Qualifiers: Esophageal varices type: secondary Qualified Code(s): I85.11 - Secondary esophageal varices with bleeding Code(s): I85.01 - Esophageal varices with bleeding Status: Acute (2) Cirrhosis, alcoholic: Qualifiers: Ascites presence: with ascites Qualified Code(s): K70.31 - Alcoholic cirrhosis of liver with ascites Code(s): K70.30 - Alcoholic cirrhosis of liver without ascites Status: Acute (3) Coagulopathy: Code(s): D68.9 - Coagulation defect, unspecified Status: Acute Transfer Discharge Sum: Med Medications Active and Home Medications: Home Medications No Home Medications 05/20/25 [History Confirmed 05/20/25] Active Medications Atropine Sulfate (Atropine Sulfate 1% Oph Soln 5 Ml Bottle) 1 - 2 drop SUBLINGUAL Q4H PRN PRN Reason: Secretions Octreotide Acetate 500 mcg/ (Sodium Chloride) 100 mls @ 10 mls/hr IV CONT .Q10H [facility] Last Admin: 05/23/25 11:25 Dose: 50 mcg/hr, 10 mls/hr Ceftriaxone Sodium 1 gm/ (Sodium Chloride) 50 mls @ 100 mls/hr IVPB Q24H [place] Last Admin: 05/22/25 18:09 Dose: 100 mls/hr Lorazepam (Lorazepam Inj (*Crx) 2 Mg/Ml Vial) 2 mg IV PUSH Q2H PRN PRN Reason: Anxiety/Comfort Last Admin: 05/21/25 03:52 Dose: 2 mg Morphine Sulfate (Morphine Sulfate (*Crx) 2 Mg/Ml Inj) 2 mg IV PUSH Q30M PRN PRN Reason: COMFORT Last Admin: 05/21/25 01:46 Dose: 2 mg Thiamine HCl (Thiamine Hcl 100 Mg Tablet) 100 mg PO QAM [place] Last Admin: 05/23/25 09:52 Dose: 100 mg Transfer Discharge Sum: Hosp Hospital Course Hospital course: Brodie Ochoa is a 50 year old male with PMH of alcohol abuse, cirrhosis w/liver failure, and esophageal varices presents here with bloody emesis. The patient presents here from [facility] via EMS for further evaluation of bloody emesis. HPI obtained through chart review and patient's next of kin. The patient had one episode of bloody emesis this morning, described as bright red, which prompted a call to EMS. While in route to the ER the patient had a second episode of vomiting blood. He has a PMH significant for liver failure secondary to ETOH and esophageal varices. He [facility] with [facility]ology at [facility], currently on transplant list. Per the patient's brother, Rafael Ochoa, his next of kin the patient was recently admitted to [facility] for an esophageal varices bleed. He underwent a EGD at that time where he had varices banded. During this admission he elected to be DNR. Initial VS: 98.6F, HR 78, RR 14, 102/58, 99% RA. ED workup: no leukocytosis, Hgb 9.5 (repeat 6.8), INR 2.5, lactic 3.2, total bili 7, lipase 51623, ETOH negative. CT of the abd pelvis showed cirrhotic liver w/portal HTN/splenomegaly/varices in the right abdomen/mod to large ascites, small to mod umbilical hernia, 2.1 cm hypodense lesion left hepatic lobe, markedly distended GB, small right and minimal left pleural effusions. Patient's brother Rafael Ochoa (next of kin) at the bedside. Brother updated on patient's condition and findings during the EGD. He reports the patient elected to be DNR at [facility] during his most recent admission for an upper GI bleed/esophageal varices. He reports during this visit he had varices banded. He would like the patient to be made DNR/DNI and comfort measures. He would like to cancel the transfer to [facility]. He would also like the patient considered for organ donation. gravity prospecting observer helper to contact [facility]. Patient currently has 1u PRBC transfusing, will complete this transfusion and then brother would like no more blood products. [facility] contacted to cancel transfer at 16:50. [employer] notified of changes. 05/22/2025 Patient sitting in bed at time of examination. Hospice was consulted and chemo to see the patient yesterday on 05/21. At the time patient was A&O x4 and did not want to be on comfort care or hospice. He he still wanted to be a DNR/DNI but would like to continue with the transfer process to [facility] for his underlying issue of esophageal varices/hematemesis. This was discussed with the brother who agreed with the patient's wishes. Transfer process was initiated and [facility] was called and patient was accepted. Pending transfer at this time, patient is otherwise stable. He did require 1 unit PRBC on 05/21 for hemoglobin of 6.7. IV octreotide reinstated and GI to continue seen patient while admitted. Continue H&H rechecks. 05/23/2025 Resting comfortably in bed at time of examination. Denies any pain or concerns at this time. Pending transfer to [facility]. Then in the evening of 05/23/25 - pt was transferred to [facility]. Patient Condition: Stable Time Spent with Patient Time attestation: Total time spent providing and/or coordinating transfer services: 51 Exam Const: General: comfortable and no acute distress Other: , male, ill-appearing, intubated HENMT: Face/Nose/Sinus: Normal nares present Mouth: Yes moist mucous membranes Eyes: General: appearance normal, both eyes and all related structures Pupils: Equal, round and reactive pupils present (4 mm bilaterally) Other: icteric sclerae Resp: Effort & Inspection: normal respiratory effort Other: Diffuse crackles, no wheezing. Intubated and tolerating vent well. Cardio: Rate: regular rate Rhythm: regular rhythm Other: S1-S2 present without murmur, rub, ectopy GI: Other: Abdomen distended, soft. Umbilical hernia noted. Normoactive bowel sounds in all quadrants. + ascites Skin: Other: Slightly jaundiced appearance, small areas of ecchymosis to his extremities in various stages of healing and no particular pattern. Neuro: Cranial nerves: Yes Equal, round and reactive pupils present (4 mm bilaterally) Other: PERRLA. normal speech Extrem: General: normal to inspection Other: normal to inspection Psych: Other: not belligerent DS: Data Data Completed and Pending Labs on day of discharge: Labs from last 24 hours 05/23/25 05/22/25 05/19/25 05:30 20:21 21:14 WBC 3.8 L RBC 2.46 L Hgb 7.5 L 7.7 L Hct 23.4 L 23.2 L MCV 95.1 MCH 30.5 MCHC 32.1 RDW 17.9 H Plt Count 62 L MPV 10.6 H Immature Gran % (Auto) 0.8 H Neut % (Auto) 75.9 H Lymph % (Auto) 10.3 L [place] % (Auto) 11.1 H Eos % (Auto) 1.1 Baso % (Auto) 0.8 Lymph # (Auto) 0.39 L [place] # (Auto) 0.4 Eos # (Auto) 0.0 Baso # (Auto) 0.0 Abs Immat Gran (auto) 0.03 Absolute Neuts (auto) 2.9 Absolute Nucleated RBC 0.000 Nucleated RBC % 0.0 % Immature Plt Fraction 3.8 PT 26.3 H INR 2.5 Sodium 138 Potassium 3.9 Chloride 109 H Carbon Dioxide 22 Anion Gap 7 BUN 9 Creatinine 0.67 L Estim Creat Clear Calc 112 Estimated GFR > 60 Glucose 135 H Calcium 7.9 L Total Bilirubin 11.9 H AST 68 H ALT 29 Alkaline Phosphatase 57 Total Protein 6.1 L Albumin 2.4 L Crossmatch See Detail
[2025-05-23 15:55] VITALS: BP 108/60; PULSE 56; RESP 18; O2SAT 97
[2025-05-23 16:00] VITALS: PULSE 59
--- NOTE | 2025-05-23 17:22 | WPDGIPROGNO ---
Progress Note: A&P Assessment and Plan (1) GIB (gastrointestinal bleeding): Code(s): K92.2 - Gastrointestinal hemorrhage, unspecified Status: Acute Assessment and Plan: noted bleeding from site of clip at varix (this has placed at another institution), I placed more rubber band continue iv octreotide hgb stable 7 he will be evaluated for tips if meld allows (2) Cirrhosis, alcoholic: Qualifiers: Ascites presence: with ascites Qualified Code(s): K70.31 - Alcoholic cirrhosis of liver with ascites Code(s): K70.30 - Alcoholic cirrhosis of liver without ascites Status: Acute Assessment and Plan: decompensated cirrhosis here with active bleeding which is stable now meld elevated on admission he wants medical treatment and he is going to [facility] today (3) Esophageal varices with bleeding: Qualifiers: Esophageal varices type: secondary Qualified Code(s): I85.11 - Secondary esophageal varices with bleeding Code(s): I85.01 - Esophageal varices with bleeding Status: Acute (4) Ascites: Code(s): R18.8 - Other ascites Status: Acute Assessment and Plan: covered with antibiotic (5) Coagulopathy: Code(s): D68.9 - Coagulation defect, unspecified Status: Acute Assessment and Plan: s/p vit K (6) Acute blood loss anemia: Code(s): D62 - Acute posthemorrhagic anemia Status: Acute Subjective Date/time seen: 05/23/25 15:12 Interval history: he was already accepter to [facility] and will be transferred today no new changes Review of Systems Review of Systems: All systems reviewed & are unremarkable except as noted in HPI and below Exam Const: General: comfortable and no acute distress Other: , male, ill-appearing HENMT: Face/Nose/Sinus: Normal nares present Mouth: Yes moist mucous membranes Eyes: General: appearance normal, both eyes and all related structures Pupils: Equal, round and reactive pupils present (4 mm bilaterally) Other: icteric sclerae Neck: Neck: supple Resp: Effort & Inspection: normal respiratory effort Auscultation: no wheezes Other: Cardio: Rate: regular rate Rhythm: regular rhythm GI: GI Palp: Yes Soft to palpation Other: Abdomen distended, soft. Umbilical hernia noted. Normoactive bowel sounds in all quadrants. + ascites Skin: Other: Slightly jaundiced appearance, spider angioma chest Neuro: Speech: normal speech Extrem: General: normal to inspection Psych: Attitude: not belligerent Objective Data Vital Signs Vital Signs: Vital Signs - 24 hr 05/22/25 20:00 05/22/25 20:00 05/22/25 20:00 Temperature 98.2 F Pulse Rate 58 L 59 L Respiratory Rate 14 Blood Pressure 87/55 L Pulse Oximetry 98 Oxygen Delivery Room Air 05/22/25 20:52 05/22/25 23:54 05/23/25 00:00 Temperature 98.0 F Pulse Rate 66 60 Respiratory Rate 20 Blood Pressure 105/63 Pulse Oximetry 98 100 Oxygen Delivery Room Air 05/23/25 04:00 05/23/25 04:00 05/23/25 08:00 Temperature 98.2 F 98.9 F Pulse Rate 57 L 63 60 Respiratory Rate 16 16 Blood Pressure 99/65 L 107/55 L Pulse Oximetry 98 97 Oxygen Delivery 05/23/25 08:00 05/23/25 12:00 05/23/25 15:55 Temperature 99.8 F H Pulse Rate 62 56 L Respiratory Rate 16 18 Blood Pressure 105/64 108/60 Pulse Oximetry 96 97 Oxygen Delivery Room Air Intake/Output Intake/Output: Intake & Output 05/20/25 05/21/25 05/22/25 05/23/25 23:59 23:59 23:59 23:59 Intake Total 3324.9 590 820 314.8 Output Total 600 1250 3300 1200 Balance 2724.9 -660 -2480 -885.2 Meds/Results Medications: Active Medications Generic Name Dose Route Start Last Admin Trade Name Freq PRN Reason Stop Dose Admin Atropine Sulfate 1 - 2 drop 05/20/25 17:15 Atropine Sulfate 1% Ophth Soln 5 Ml Bottle SUBLINGUAL Q4H PRN Secretions Octreotide Acetate 500 mcg/ 100 mls @ 10 mls/hr 05/22/25 13:20 05/23/25 11:25 Sodium Chloride IV CONT 50 mcg/hr .Q10H [place] 10 mls/hr Administration 50 MCG/HR Ceftriaxone Sodium 1 gm/ 50 mls @ 100 mls/hr 05/22/25 18:00 05/22/25 18:09 Sodium Chloride IVPB 100 mls/hr Q24H [place] Administration Lorazepam 2 mg 05/20/25 17:15 05/21/25 03:52 Lorazepam Inj (*Crx) 2 Mg/Ml Vial IV PUSH 2 mg Q2H PRN Administration Anxiety/Comfort Morphine Sulfate 2 mg 05/20/25 17:15 05/21/25 01:46 Morphine Sulfate (*Crx) 2 Mg/Ml Inj IV PUSH 2 mg Q30M PRN Administration COMFORT Thiamine HCl 100 mg 05/23/25 09:00 05/23/25 09:52 Thiamine Hcl 100 Mg Tablet PO 100 mg QAM [place] Administration Radiology Results: ITS Impressions Abdomen/Pelvis CT 05/20/25 05:31 Impression: Cirrhotic liver with evidence of portal hypertension including splenomegaly, extensive varices in the right abdomen, and moderate to large amount of abdominopelvic ascites. Small to moderate umbilical hernia containing fat and fluid. 2.1 cm hypodense lesion left hepatic lobe is indeterminate based on this exam. Follow-up MR recommended to further assess. Markedly distended gallbladder with small calcified gallstones and larger amount of more amorphous hyperdense material which could reflect gallbladder sludge versus possibly hemorrhage or soft tissue density. This could also be further assessed at. Postcontrast MR. Small right pleural effusion and minimal left pleural effusion. Chest X-Ray 05/20/25 16:29 IMPRESSION: Endotracheal tube, 4.3 cm above the madisyn. Segmental right upper lung and left medial lower lung atelectasis/consolidation. Labs Labs: Laboratory Results - last 24 hr 05/19/25 05/22/25 05/23/25 21:14 20:21 05:30 WBC 3.8 L RBC 2.46 L Hgb 7.7 L 7.5 L Hct 23.2 L 23.4 L MCV 95.1 MCH 30.5 MCHC 32.1 RDW 17.9 H Plt Count 62 L MPV 10.6 H Immature Gran % (Auto) 0.8 H Neut % (Auto) 75.9 H Lymph % (Auto) 10.3 L [place] % (Auto) 11.1 H Eos % (Auto) 1.1 Baso % (Auto) 0.8 Lymph # (Auto) 0.39 L [place] # (Auto) 0.4 Eos # (Auto) 0.0 Baso # (Auto) 0.0 Abs Immat Gran (auto) 0.03 Absolute Neuts (auto) 2.9 Absolute Nucleated RBC 0.000 Nucleated RBC % 0.0 % Immature Plt Fraction 3.8 PT 26.3 H INR 2.5 Sodium 138 Potassium 3.9 Chloride 109 H Carbon Dioxide 22 Anion Gap 7 BUN 9 Creatinine 0.67 L Estim Creat Clear Calc 112 Estimated GFR > 60 Glucose 135 H Calcium 7.9 L Total Bilirubin 11.9 H AST 68 H ALT 29 Alkaline Phosphatase 57 Total Protein 6.1 L Albumin 2.4 L Crossmatch See Detail
[2025-05-29 14:42] LABS: Hemoglobin 6.7 g/dL (14.0-18.0)
== END 2025-05-23 16:40 | disposition short-term general hospital (02) | DRG 280 ==
LOC: ANHED 05-20 08:54 → ANHIMU 05-20 11:52 → ANHICU 05-20 16:03 → ANH3MEDSUR 05-20 21:12
PROVIDERS: Emergency Medicine; General Practice; Internal Medicine Gastroenterology; Physician Assistant; Student in an Organized Health Care Education/Training Program; Admitting Provider Internal Medicine; Emergency Provider Emergency Medicine; Visit Provider Physician Assistant
PROC: 0DJ08ZZ Inspection of Upper Intestinal Tract, Via Natural or Artificial Opening Endoscopic (ICD-10-PCS; principal; 2025-05-20 16:00)
DX: K70.31 Alcoholic cirrhosis of liver with ascites (principal); I85.01 Esophageal varices with bleeding; I85.11 Secondary esophageal varices with bleeding; Z66 Do not resuscitate; K29.71 Gastritis, unspecified, with bleeding; D62 Acute posthemorrhagic anemia; D68.9 Coagulation defect, unspecified; F10.20 Alcohol dependence, uncomplicated; K72.10 Chronic hepatic failure without coma; K76.6 Portal hypertension; G93.40 Encephalopathy, unspecified
CPT/HCPCS: 36415; 36430; 74177; 80053; 82077; 82140; 82948; 83605; 83690; 83735; 85014; 85018; 85025; 85027; 85055; 85610; 85730; 86850; 86900; 86901; 86923; 94002; 96361; 96365; 96366; 96367; 96375; 99285; A9270; C1052; J0330; J0696; J2003; J2060; J2250; J2270; J2354; J2371; J2470; J2704; J3010; J7040; J7050; J7120; P9016; P9047; Q9967